=== PATIENT | female | born 1960 | race Caucasian/White ===

== ENCOUNTER 2017-07-10 16:19 | Inpatient (IN) | payer OTHER ==
[~2017-07-10] VITALS: Ht 165.1 cm; Wt 92.2 kg
[~2017-07-10 16:19] MED LIST: ACET325; ACET325 PO; ACET500; ALBU90OI INH; ALBU90OI6 INH; ALBU90OI61 INH; ANTIBIOTIC; ASCO500 PO; ASPI81CH PO; ASPI81EC; ATEN25 PO; ATOR40TA PO; BUME2 PO; Bactrim Ds Tab1 EACH PO; CEFTR1PB IV; CEPH500 PO; CHOL10002 PO; CIPDEXSU BOTHEARS; COLL250TO TOP; CRUTCH3 USE; CYAN500 PO; CYCL10 PO; Cymbalta60 MG PO; DIAZ2 PO; DOCU100 PO; DULO60 PO; FERR325 PO; FLAX PO; FURO40 PO; GABA100; GABA300 PO; GABA600 PO; GEMF600 PO; GLIM2 PO; GLIP5 PO; GLUC500; HYDACE10B PO; HYDACE5; HYDACE5 PO; HYDMOR2 PO; HYDR1TAB94 PO; Hair, Skin & N1 EACH PO; IBUP400; INSDET100 SC; INSUASPI SC; INSUGL100V; INSULANPEN SC; K-TAB ER8 MEQ PO; LAVAP17G PO; LEVO750 PO; LEVSOD100 PO; LEVSOD125 PO; LEVSOD25 PO; LIDO2TG30; LIRA0.6P SC; LOSA25 PO; MELO7.5 PO; METF500 PO; METO25 PO; METPRE4DP PO; NAPR500 PO; NAPR550 PO; Norco 5-325 Ta1 EACH PO; Novolog Fl100 UNIT/1 SC; ONDA4ODT MM; OXYACE5T PO; OXYC5 PO; Omeprazole20 M1 PO; PANT40 PO; POTA8 PO; PRED10 PO; Pedi-Dri 100,0060 GM TOP; RIFA300 PO; RXHYDACE PO; Silvadene20 GM TOP; [UNRECOGNIZED DRUG - OTHER]; [UNRECOGNIZED DRUG - REMARK]
[2017-07-10 17:35] LABS: BASOPHILS ABSOLUTE AUTO 0.02 K/mm3 (0.00-0.23); BASOPHILS PERCENT AUTO 0 % (0-2); EOSINOPHILS ABSOLUTE AUTO 0.02 K/mm3 (0.00-0.68); EOSINOPHILS PERCENT AUTO 0 % (0-6); Hematocrit 35.1 % (33.0-51.0); Hemoglobin 11.5 g/dL (11.5-16.0); IMMATURE GRAN ABSOLUTE AUTO 0.07 K/mm3 (0.00-0.10); IMMATURE GRAN PERCENT AUTO 0 % (0-1); LYMPHOCYTES ABSOLUTE AUTO 0.76 K/mm3 (0.84-5.20); LYMPHOCYTES PERCENT AUTO 4 % (21-46); MONOCYTES ABSOLUTE AUTO 1.05 K/mm3 (0.16-1.47); MONOCYTES PERCENT AUTO 5 % (4-13); Mean Corpuscular HGB 32.1 pg (26.0-34.0); Mean Corpuscular HGB Conc 32.8 g/dL (31.5-36.5); Mean Corpuscular Volume 98 fL (80-100); Mean Platelet Volume 9.4 fL (9.1-12.4); NEUTROPHILS ABSOLUTE AUTO 18.09 K/mm3 (1.96-9.15); NEUTROPHILS PERCENT AUTO 91 % (41-73); Platelet Count 217 K/mm3 (150-400); RDW Coefficient Variation 14.3 % (11.7-14.2); RDW Standard Deviation 51.1 fL (35.1-46.3); Red Blood Cell Count 3.58 M/mm3 (3.80-5.20); White Blood Cell Count 20.01 K/mm3 (4.00-11.30)
[2017-07-10 17:51] LABS: Albumin, Blood 2.7 g/dL (3.4-5.0); Albumin/Globulin Ratio 0.5 (0.8-1.8); Bilirubin, Total 0.4 mg/dL (0.1-1.0); Bun/Creatinine Ratio 12.3 (12.0-20.0); Calcium, Blood 9.2 mg/dL (8.5-10.1); Creatinine, Blood 1.55 mg/dL (0.40-1.00); Globulin, Blood 5.3 g/dL (2.2-4.0); Potassium, Blood 4.6 mmol/L (3.5-5.5)
[2017-07-10 18:57] LABS: Source, Urine Clean Catch
[2017-07-10 19:00] LABS: Bilirubin, Urine Neg (Neg); Blood, Urine 3+ (Neg); Glucose Qualitative, Urine 4+ (Neg); Ketones, Urine Neg (Neg); Leukocyte Esterase, Urine 3+ (Neg); Nitrite, Urine Pos (Neg); Protein, Urine 3+ (Neg); Specific Gravity, Urine 1.015 (1.003-1.022); Urobilinogen, Urine NORM (Normal)
[2017-07-10 19:11] LABS: Appearance, Urine Cloudy (Clear); Color, Urine Yellow (P-Yellow)
[2017-07-10 19:13] LABS: Squamous Epithelial Cells Few /hpf (Few); White Blood Cells, Urine TNTC /hpf (0-5); Yeast/Fungi Urine Few /hpf
[2017-07-10 19:14] LABS: Bacteria Many /hpf
[2017-07-10 19:42] LABS: Influenza A Negative (NEGATIVE); Influenza B Negative (NEGATIVE)
[2017-07-11 05:16] LABS: BASOPHILS ABSOLUTE AUTO 0.02 K/mm3 (0.00-0.23); BASOPHILS PERCENT AUTO 0 % (0-2); EOSINOPHILS ABSOLUTE AUTO 0.02 K/mm3 (0.00-0.68); EOSINOPHILS PERCENT AUTO 0 % (0-6); Hematocrit 27.9 % (33.0-51.0); Hemoglobin 8.9 g/dL (11.5-16.0); IMMATURE GRAN ABSOLUTE AUTO 0.05 K/mm3 (0.00-0.10); IMMATURE GRAN PERCENT AUTO 0 % (0-1); LYMPHOCYTES ABSOLUTE AUTO 1.25 K/mm3 (0.84-5.20); LYMPHOCYTES PERCENT AUTO 7 % (21-46); MONOCYTES ABSOLUTE AUTO 1.15 K/mm3 (0.16-1.47); MONOCYTES PERCENT AUTO 6 % (4-13); Mean Corpuscular HGB 31.8 pg (26.0-34.0); Mean Corpuscular HGB Conc 31.9 g/dL (31.5-36.5); Mean Corpuscular Volume 100 fL (80-100); Mean Platelet Volume 9.5 fL (9.1-12.4); NEUTROPHILS ABSOLUTE AUTO 15.59 K/mm3 (1.96-9.15); NEUTROPHILS PERCENT AUTO 86 % (41-73); Platelet Count 145 K/mm3 (150-400); RDW Coefficient Variation 14.7 % (11.7-14.2); RDW Standard Deviation 52.6 fL (35.1-46.3); White Blood Cell Count 18.08 K/mm3 (4.00-11.30)
[2017-07-11 06:08] LABS: Albumin, Blood 1.9 g/dL (3.4-5.0); Albumin/Globulin Ratio 0.4 (0.8-1.8); Bilirubin, Total 0.3 mg/dL (0.1-1.0); Bun/Creatinine Ratio 12.4 (12.0-20.0); Creatinine, Blood 1.7 mg/dL (0.40-1.00); Globulin, Blood 4.4 g/dL (2.2-4.0); Potassium, Blood 4.9 mmol/L (3.5-5.5); Total Protein, Blood 6.3 g/dL (6.4-8.2)
[2017-07-12 06:37] LABS: Alanine Aminotransfer (ALT/SGP 26 U/L (12-78); Albumin, Blood 1.6 g/dL (3.4-5.0); Albumin/Globulin Ratio 0.4 (0.8-1.8); Alk Phos 184 U/L (50-136); Anion Gap 7 mmol/L (6-16); Aspartate Aminotrans (AST/SGOT 35 U/L (12-37); Bilirubin, Total 0.3 mg/dL (0.1-1.0); Blood Urea Nitrogen 18 mg/dL (8-24); CO2, Blood 22 mmol/L (21-32); Calcium, Blood 7.4 mg/dL (8.5-10.1); Chloride, Blood 106 mmol/L (98-108); Globulin, Blood 4.2 g/dL (2.2-4.0); Glomerular Filtration Rate 38 (60-); Glucose, Blood 154 mg/dL (70-99); Magnesium, Blood 1.5 mg/dL (1.6-2.4); Phosphorus, Blood 2.2 mg/dL (2.5-4.9); Potassium, Blood 4.6 mmol/L (3.5-5.5); Sodium, Blood 135 mmol/L (136-145); Total Protein, Blood 5.8 g/dL (6.4-8.2)
[2017-07-12 06:47] LABS: C-REACTIVE PROTEIN, EXT RANGE >19.000 mg/dL (0.000-0.300)
[2017-07-12 07:06] LABS: BASOPHILS ABSOLUTE AUTO 0.01 K/mm3 (0.00-0.23); BASOPHILS PERCENT AUTO 0 % (0-2); EOSINOPHILS ABSOLUTE AUTO 0.06 K/mm3 (0.00-0.68); EOSINOPHILS PERCENT AUTO 1 % (0-6); Hematocrit 24.5 % (33.0-51.0); Hemoglobin 7.8 g/dL (11.5-16.0); IMMATURE GRAN ABSOLUTE AUTO 0.03 K/mm3 (0.00-0.10); IMMATURE GRAN PERCENT AUTO 0 % (0-1); LYMPHOCYTES ABSOLUTE AUTO 0.84 K/mm3 (0.84-5.20); LYMPHOCYTES PERCENT AUTO 9 % (21-46); MONOCYTES ABSOLUTE AUTO 0.58 K/mm3 (0.16-1.47); MONOCYTES PERCENT AUTO 6 % (4-13); Mean Corpuscular HGB 31.3 pg (26.0-34.0); Mean Corpuscular HGB Conc 31.8 g/dL (31.5-36.5); Mean Corpuscular Volume 98 fL (80-100); Mean Platelet Volume 10.1 fL (9.1-12.4); NEUTROPHILS ABSOLUTE AUTO 8.05 K/mm3 (1.96-9.15); NEUTROPHILS PERCENT AUTO 84 % (41-73); Platelet Count 133 K/mm3 (150-400); RDW Coefficient Variation 14.4 % (11.7-14.2); RDW Standard Deviation 51.4 fL (35.1-46.3); Red Blood Cell Count 2.49 M/mm3 (3.80-5.20); White Blood Cell Count 9.57 K/mm3 (4.00-11.30)
[2017-07-13 04:41] LABS: Bun/Creatinine Ratio 12.7 (12.0-20.0); Calcium, Blood 7.7 mg/dL (8.5-10.1); Creatinine, Blood 1.34 mg/dL (0.40-1.00); Potassium, Blood 4.7 mmol/L (3.5-5.5)
[2017-07-13 04:47] LABS: BASOPHILS ABSOLUTE AUTO 0.01 K/mm3 (0.00-0.23); BASOPHILS PERCENT AUTO 0 % (0-2); EOSINOPHILS ABSOLUTE AUTO 0.13 K/mm3 (0.00-0.68); EOSINOPHILS PERCENT AUTO 2 % (0-6); Hematocrit 25.7 % (33.0-51.0); Hemoglobin 8.3 g/dL (11.5-16.0); IMMATURE GRAN ABSOLUTE AUTO 0.01 K/mm3 (0.00-0.10); IMMATURE GRAN PERCENT AUTO 0 % (0-1); LYMPHOCYTES ABSOLUTE AUTO 0.99 K/mm3 (0.84-5.20); LYMPHOCYTES PERCENT AUTO 14 % (21-46); MONOCYTES ABSOLUTE AUTO 0.44 K/mm3 (0.16-1.47); MONOCYTES PERCENT AUTO 6 % (4-13); Mean Corpuscular HGB Conc 32.3 g/dL (31.5-36.5); Mean Corpuscular Volume 99 fL (80-100); Mean Platelet Volume 10.1 fL (9.1-12.4); NEUTROPHILS ABSOLUTE AUTO 5.61 K/mm3 (1.96-9.15); NEUTROPHILS PERCENT AUTO 78 % (41-73); Platelet Count 116 K/mm3 (150-400); RDW Coefficient Variation 14.3 % (11.7-14.2); RDW Standard Deviation 51.3 fL (35.1-46.3); Red Blood Cell Count 2.59 M/mm3 (3.80-5.20); White Blood Cell Count 7.19 K/mm3 (4.00-11.30)
[2017-07-13 04:47] LABS: Percent Saturation 14.9 % (15.0-50.0)
[2017-07-14 04:37] LABS: BASOPHILS ABSOLUTE AUTO 0.02 K/mm3 (0.00-0.23); BASOPHILS PERCENT AUTO 0 % (0-2); EOSINOPHILS ABSOLUTE AUTO 0.14 K/mm3 (0.00-0.68); EOSINOPHILS PERCENT AUTO 3 % (0-6); Hematocrit 28.4 % (33.0-51.0); Hemoglobin 9.4 g/dL (11.5-16.0); IMMATURE GRAN ABSOLUTE AUTO 0.02 K/mm3 (0.00-0.10); IMMATURE GRAN PERCENT AUTO 0 % (0-1); LYMPHOCYTES ABSOLUTE AUTO 1.43 K/mm3 (0.84-5.20); LYMPHOCYTES PERCENT AUTO 25 % (21-46); MONOCYTES ABSOLUTE AUTO 0.44 K/mm3 (0.16-1.47); MONOCYTES PERCENT AUTO 8 % (4-13); Mean Corpuscular HGB Conc 33.1 g/dL (31.5-36.5); Mean Platelet Volume 10.1 fL (9.1-12.4); NEUTROPHILS ABSOLUTE AUTO 3.61 K/mm3 (1.96-9.15); NEUTROPHILS PERCENT AUTO 64 % (41-73); Platelet Count 154 K/mm3 (150-400); RDW Coefficient Variation 15.3 % (11.7-14.2); RDW Standard Deviation 52.4 fL (35.1-46.3); Red Blood Cell Count 3.03 M/mm3 (3.80-5.20); White Blood Cell Count 5.66 K/mm3 (4.00-11.30)
[2017-07-14 04:47] LABS: Mean Corpuscular Volume 94 fL (80-100)
[2017-07-14 04:53] LABS: Albumin, Blood 1.8 g/dL (3.4-5.0); Anion Gap 7 mmol/L (6-16); Blood Urea Nitrogen 17 mg/dL (8-24); Bun/Creatinine Ratio 12.7 (12.0-20.0); CO2, Blood 25 mmol/L (21-32); Calcium, Blood 8.4 mg/dL (8.5-10.1); Chloride, Blood 106 mmol/L (98-108); Creatinine, Blood 1.34 mg/dL (0.40-1.00); Glomerular Filtration Rate 43 (60-); Glucose, Blood 151 mg/dL (70-99); Potassium, Blood 4.5 mmol/L (3.5-5.5); Sodium, Blood 138 mmol/L (136-145)
[2018-06-27] MEDS ORDERED: ACET325 PO (11:44)
[2018-06-27] MEDS ORDERED: DOCU100 PO (11:44)
[2018-06-27] MEDS ORDERED: Aspir 8181 MG PO (11:44)
[2018-06-27] MEDS ORDERED: LOSA25 PO (11:45)
[2018-06-27] MEDS ORDERED: Lopressor 25 mg25 MG PO (11:45)
[2018-06-27] MEDS ORDERED: Lantus100 UNIT/1 SC (11:45)
[2018-06-27] MEDS ORDERED: Synthroid175 MCG PO (11:46)
[2018-06-27] MEDS ORDERED: ALBU90OI61 INH (11:46)
[2018-06-27] MEDS ORDERED: GABA600 PO (11:46)
[2018-06-27] MEDS ORDERED: Novolog100 UNIT/2 SC (11:47)
== END 2017-07-15 14:44 | disposition left against medical advice (07) | DRG 872 ==
LOC: ER 16:19 → ICUW 07-11 00:05 → PCU 07-12 10:45 → MEDS 07-13 16:29
PROVIDERS: Emergency Medicine; Family Medicine; Hospitalist; Internal Medicine; Physician Assistant
PROC: 30233N1 Transfusion of Nonautologous Red Blood Cells into Peripheral Vein, Percutaneous Approach (ICD-10-PCS; principal; 2017-07-13)
DX: A41.51 Sepsis due to Escherichia coli [E. coli] (principal); N17.9 Acute kidney failure, unspecified; N18.3 Chronic kidney disease, stage 3 (moderate); N12 Tubulo-interstitial nephritis, not specified as acute or chronic; N39.0 Urinary tract infection, site not specified; E11.65 Type 2 diabetes mellitus with hyperglycemia; B96.20 Unspecified Escherichia coli [E. coli] as the cause of diseases classified elsewhere; D63.1 Anemia in chronic kidney disease; D72.829 Elevated white blood cell count, unspecified; I25.10 Atherosclerotic heart disease of native coronary artery without angina pectoris; J40 Bronchitis, not specified as acute or chronic; M47.812 Spondylosis without myelopathy or radiculopathy, cervical region; Z96.0 Presence of urogenital implants; F17.210 Nicotine dependence, cigarettes, uncomplicated; G89.29 Other chronic pain; M54.2 Cervicalgia; Z79.4 Long term (current) use of insulin; Z89.512 Acquired absence of left leg below knee
CPT/HCPCS: 36415; 36430; 51703; 71020; 76770; 80048; 80053; 80069; 81001; 82728; 82947; 83540; 83550; 83605; 83735; 84100; 85025; 86140; 86850; 86870; 86900; 86901; 86902; 86922; 87040; 87077; 87086; 87186; 87804; 93005; 93010; 96361; 96365; 96375; 97110; 97163; 97530; 99285; G8978; G8979; J0696; J0697; J1650; J1815; J1956; J2405; J3010; J7030; P9016; P9612

== ENCOUNTER 2017-07-18 13:26 | Day surgery (SDC) | payer OTHER ==
[2018-06-27] MEDS ORDERED: DOCU100 PO (11:44)
[2018-06-27] MEDS ORDERED: ACET325 PO (11:44)
[2018-06-27] MEDS ORDERED: Aspir 8181 MG PO (11:44)
[2018-06-27] MEDS ORDERED: Lopressor 25 mg25 MG PO (11:45)
[2018-06-27] MEDS ORDERED: Lantus100 UNIT/1 SC (11:45)
[2018-06-27] MEDS ORDERED: LOSA25 PO (11:45)
[2018-06-27] MEDS ORDERED: GABA600 PO (11:46)
[2018-06-27] MEDS ORDERED: ALBU90OI61 INH (11:46)
[2018-06-27] MEDS ORDERED: Synthroid175 MCG PO (11:46)
[2018-06-27] MEDS ORDERED: Novolog100 UNIT/2 SC (11:47)
== END 2017-07-18 15:00 | disposition home or self-care (01) ==
LOC: ATC 13:26
DX: A41.9 Sepsis, unspecified organism (principal); E11.9 Type 2 diabetes mellitus without complications; F17.210 Nicotine dependence, cigarettes, uncomplicated; Z88.1 Allergy status to other antibiotic agents; Z88.0 Allergy status to penicillin; Z88.8 Allergy status to other drugs, medicaments and biological substances
CPT/HCPCS: 96365; J1335; J7050

== ENCOUNTER 2017-07-19 07:37 | Day surgery (SDC) | payer OTHER ==
[2018-06-27] MEDS ORDERED: Aspir 8181 MG PO (11:44)
[2018-06-27] MEDS ORDERED: DOCU100 PO (11:44)
[2018-06-27] MEDS ORDERED: ACET325 PO (11:44)
[2018-06-27] MEDS ORDERED: Lantus100 UNIT/1 SC (11:45)
[2018-06-27] MEDS ORDERED: LOSA25 PO (11:45)
[2018-06-27] MEDS ORDERED: Lopressor 25 mg25 MG PO (11:45)
[2018-06-27] MEDS ORDERED: GABA600 PO (11:46)
[2018-06-27] MEDS ORDERED: Synthroid175 MCG PO (11:46)
[2018-06-27] MEDS ORDERED: ALBU90OI61 INH (11:46)
[2018-06-27] MEDS ORDERED: Novolog100 UNIT/2 SC (11:47)
== END 2017-07-19 14:50 | disposition home or self-care (01) ==
LOC: ATC 07:37
DX: A41.9 Sepsis, unspecified organism (principal); E11.9 Type 2 diabetes mellitus without complications; R05 Cough; I25.10 Atherosclerotic heart disease of native coronary artery without angina pectoris; F17.210 Nicotine dependence, cigarettes, uncomplicated; Z88.1 Allergy status to other antibiotic agents; Z88.0 Allergy status to penicillin; Z88.8 Allergy status to other drugs, medicaments and biological substances
CPT/HCPCS: 96365; J1335; J7050

== ENCOUNTER 2017-07-20 00:42 | Day surgery (SDC) | payer OTHER ==
[2018-06-27] MEDS ORDERED: ACET325 PO (11:44)
[2018-06-27] MEDS ORDERED: Aspir 8181 MG PO (11:44)
[2018-06-27] MEDS ORDERED: DOCU100 PO (11:44)
[2018-06-27] MEDS ORDERED: LOSA25 PO (11:45)
[2018-06-27] MEDS ORDERED: Lantus100 UNIT/1 SC (11:45)
[2018-06-27] MEDS ORDERED: Lopressor 25 mg25 MG PO (11:45)
[2018-06-27] MEDS ORDERED: ALBU90OI61 INH (11:46)
[2018-06-27] MEDS ORDERED: GABA600 PO (11:46)
[2018-06-27] MEDS ORDERED: Synthroid175 MCG PO (11:46)
[2018-06-27] MEDS ORDERED: Novolog100 UNIT/2 SC (11:47)
== END 2017-07-20 14:39 | disposition home or self-care (01) ==
LOC: ATC 00:42
DX: A41.9 Sepsis, unspecified organism (principal); E11.9 Type 2 diabetes mellitus without complications; F17.210 Nicotine dependence, cigarettes, uncomplicated; Z88.1 Allergy status to other antibiotic agents; Z88.0 Allergy status to penicillin; Z88.8 Allergy status to other drugs, medicaments and biological substances
CPT/HCPCS: 96374; J1335

== ENCOUNTER 2017-07-21 00:24 | Day surgery (SDC) | payer OTHER ==
[2018-06-27] MEDS ORDERED: ACET325 PO (11:44)
[2018-06-27] MEDS ORDERED: DOCU100 PO (11:44)
[2018-06-27] MEDS ORDERED: Aspir 8181 MG PO (11:44)
[2018-06-27] MEDS ORDERED: LOSA25 PO (11:45)
[2018-06-27] MEDS ORDERED: Lopressor 25 mg25 MG PO (11:45)
[2018-06-27] MEDS ORDERED: Lantus100 UNIT/1 SC (11:45)
[2018-06-27] MEDS ORDERED: Synthroid175 MCG PO (11:46)
[2018-06-27] MEDS ORDERED: GABA600 PO (11:46)
[2018-06-27] MEDS ORDERED: ALBU90OI61 INH (11:46)
[2018-06-27] MEDS ORDERED: Novolog100 UNIT/2 SC (11:47)
== END 2017-07-21 14:45 | disposition home or self-care (01) ==
LOC: ATC 00:24
DX: A41.9 Sepsis, unspecified organism (principal); R05 Cough; E11.9 Type 2 diabetes mellitus without complications; I25.10 Atherosclerotic heart disease of native coronary artery without angina pectoris
CPT/HCPCS: 96374; J1335

== ENCOUNTER 2017-07-31 23:47 | Emergency (ER) | payer OTHER ==
[~2017-07-31] VITALS: Ht 165.1 cm; Wt 79.8 kg
[2017-08-01 00:21] LABS: BASOPHILS ABSOLUTE AUTO 0.03 K/mm3 (0.00-0.23); BASOPHILS PERCENT AUTO 0 % (0-2); EOSINOPHILS ABSOLUTE AUTO 0.08 K/mm3 (0.00-0.68); EOSINOPHILS PERCENT AUTO 1 % (0-6); Hematocrit 32.5 % (33.0-51.0); Hemoglobin 10.9 g/dL (11.5-16.0); IMMATURE GRAN ABSOLUTE AUTO 0.05 K/mm3 (0.00-0.10); IMMATURE GRAN PERCENT AUTO 0 % (0-1); LYMPHOCYTES ABSOLUTE AUTO 1.74 K/mm3 (0.84-5.20); LYMPHOCYTES PERCENT AUTO 13 % (21-46); MONOCYTES ABSOLUTE AUTO 0.75 K/mm3 (0.16-1.47); MONOCYTES PERCENT AUTO 6 % (4-13); Mean Corpuscular HGB 31.1 pg (26.0-34.0); Mean Corpuscular HGB Conc 33.5 g/dL (31.5-36.5); Mean Corpuscular Volume 93 fL (80-100); NEUTROPHILS ABSOLUTE AUTO 10.29 K/mm3 (1.96-9.15); NEUTROPHILS PERCENT AUTO 80 % (41-73); Platelet Count 269 K/mm3 (150-400); RDW Coefficient Variation 13.9 % (11.7-14.2); RDW Standard Deviation 46.8 fL (35.1-46.3); Red Blood Cell Count 3.51 M/mm3 (3.80-5.20); White Blood Cell Count 12.94 K/mm3 (4.00-11.30)
[2017-08-01 00:39] LABS: Albumin, Blood 2.8 g/dL (3.4-5.0); Albumin/Globulin Ratio 0.5 (0.8-1.8); Bilirubin, Total 0.3 mg/dL (0.1-1.0); Bun/Creatinine Ratio 21.1 (12.0-20.0); Calcium, Blood 9.4 mg/dL (8.5-10.1); Creatinine, Blood 1.52 mg/dL (0.40-1.00); Globulin, Blood 5.3 g/dL (2.2-4.0); Potassium, Blood 4.1 mmol/L (3.5-5.5); Total Protein, Blood 8.1 g/dL (6.4-8.2)
[2017-08-01 02:44] LABS: Source, Urine Clean Catch
[2017-08-01 02:57] LABS: Bilirubin, Urine Neg (Neg); Blood, Urine 3+ (Neg); Glucose Qualitative, Urine 4+ (Neg); Ketones, Urine Neg (Neg); Leukocyte Esterase, Urine 3+ (Neg); Nitrite, Urine Neg (Neg); Protein, Urine 3+ (Neg); Urobilinogen, Urine NORM (Normal)
[2017-08-01 02:58] LABS: Appearance, Urine Cloudy (Clear); Color, Urine Yellow (P-Yellow)
[2017-08-01 03:03] LABS: Bacteria Mod /hpf; Red Blood Cells, Urine 0-2 /hpf (0-2); Squamous Epithelial Cells Few /hpf (Few); White Blood Cells, Urine TNTC /hpf (0-5)
[2018-06-27] MEDS ORDERED: Aspir 8181 MG PO (11:44)
[2018-06-27] MEDS ORDERED: ACET325 PO (11:44)
[2018-06-27] MEDS ORDERED: DOCU100 PO (11:44)
[2018-06-27] MEDS ORDERED: LOSA25 PO (11:45)
[2018-06-27] MEDS ORDERED: Lopressor 25 mg25 MG PO (11:45)
[2018-06-27] MEDS ORDERED: Lantus100 UNIT/1 SC (11:45)
[2018-06-27] MEDS ORDERED: Synthroid175 MCG PO (11:46)
[2018-06-27] MEDS ORDERED: GABA600 PO (11:46)
[2018-06-27] MEDS ORDERED: ALBU90OI61 INH (11:46)
[2018-06-27] MEDS ORDERED: Novolog100 UNIT/2 SC (11:47)
== END 2017-08-01 04:27 | disposition home or self-care (01) ==
LOC: ER 23:47
PROVIDERS: Emergency Medicine
DX: R10.84 Generalized abdominal pain (principal); Z88.0 Allergy status to penicillin; Z88.8 Allergy status to other drugs, medicaments and biological substances; Z88.1 Allergy status to other antibiotic agents; Z79.899 Other long term (current) drug therapy; Z79.4 Long term (current) use of insulin; Z79.82 Long term (current) use of aspirin; I10 Essential (primary) hypertension; E11.9 Type 2 diabetes mellitus without complications; F17.200 Nicotine dependence, unspecified, uncomplicated
CPT/HCPCS: 80053; 81001; 83690; 85025; 87077; 87086; 87186; 96361; 96374; 99284; J2405; J7030; P9612

== ENCOUNTER → 2017-09-27 | Outpatient (CLI) | payer OTHER ==
[~2017-09-27] MED LIST changes: +Aspir 8181 MG PO; +Lantus100 UNIT/1 SC; +Lopressor 25 mg25 MG PO; +Novolog100 UNIT/2 SC; +Synthroid175 MCG PO
== END ==
LOC: LAB EV 17:52
DX: N39.0 Urinary tract infection, site not specified (principal)
CPT/HCPCS: 87086; 87147

== ENCOUNTER → 2017-10-02 | Outpatient (CLI) | payer OTHER | END | disposition home or self-care (01) | LOC: LAB 12:51 | PROVIDERS: Internal Medicine Hematology & Oncology | DX: D64.9 Anemia, unspecified (principal) | CPT/HCPCS: 82728; 83540; 83550 ==

== ENCOUNTER 2018-07-04 09:51 | Day surgery (SDC) | payer OTHER ==
[~2018-07-04] VITALS: Ht 165.1 cm; Wt 84.8 kg
== END 2018-07-04 12:38 | disposition home or self-care (01) ==
LOC: ORSCSDS 09:51
PROVIDERS: Internal Medicine Gastroenterology
PROC: 0DBP8ZX Excision of Rectum, Via Natural or Artificial Opening Endoscopic, Diagnostic (ICD-10-PCS; principal; 2018-07-04 11:15)
PROC: 0DBM8ZX Excision of Descending Colon, Via Natural or Artificial Opening Endoscopic, Diagnostic (ICD-10-PCS; principal; 2018-07-04 11:15)
DX: Z12.11 Encounter for screening for malignant neoplasm of colon (principal); D12.4 Benign neoplasm of descending colon; K62.1 Rectal polyp; Z85.038 Personal history of other malignant neoplasm of large intestine; Z86.010 Personal history of colon polyps; K64.8 Other hemorrhoids; I25.10 Atherosclerotic heart disease of native coronary artery without angina pectoris; I10 Essential (primary) hypertension; K57.30 Diverticulosis of large intestine without perforation or abscess without bleeding; E78.5 Hyperlipidemia, unspecified; E11.9 Type 2 diabetes mellitus without complications; F17.210 Nicotine dependence, cigarettes, uncomplicated; Z79.82 Long term (current) use of aspirin; Z79.84 Long term (current) use of oral hypoglycemic drugs; Z79.899 Other long term (current) drug therapy
CPT/HCPCS: 82947; 88305; J7120

== ENCOUNTER 2018-11-19 11:43 | Day surgery (SDC) | payer OTHER ==
--- NOTE | 2018-11-19 14:08 | NUR ---
Patient authorized nursing service director to observe care.
== END 2018-11-19 22:56 | disposition home or self-care (01) ==
LOC: WOUND 11:43
DX: E11.621 Type 2 diabetes mellitus with foot ulcer (principal); L97.512 Non-pressure chronic ulcer of other part of right foot with fat layer exposed; E11.52 Type 2 diabetes mellitus with diabetic peripheral angiopathy with gangrene; I70.261 Atherosclerosis of native arteries of extremities with gangrene, right leg; I70.248 Atherosclerosis of native arteries of left leg with ulceration of other part of lower leg; I12.9 Hypertensive chronic kidney disease with stage 1 through stage 4 chronic kidney disease, or unspecified chronic kidney disease; E11.22 Type 2 diabetes mellitus with diabetic chronic kidney disease; N18.9 Chronic kidney disease, unspecified; E11.69 Type 2 diabetes mellitus with other specified complication; M86.9 Osteomyelitis, unspecified; I25.10 Atherosclerotic heart disease of native coronary artery without angina pectoris; F41.9 Anxiety disorder, unspecified; F17.210 Nicotine dependence, cigarettes, uncomplicated; Z89.512 Acquired absence of left leg below knee; Z88.8 Allergy status to other drugs, medicaments and biological substances; Z88.0 Allergy status to penicillin; Z88.1 Allergy status to other antibiotic agents
CPT/HCPCS: 73630; 87070; 87075; 87077; 87147; 87186; 87205; G0463

== ENCOUNTER 2018-11-25 00:52 | Day surgery (SDC) | payer OTHER ==
[2018-11-28] MEDS ORDERED: Cymbalta60 MG PO (15:31)
[2018-11-28] MEDS ORDERED: BASAGLAR K100 UNIT/1 SC (15:32)
[2018-11-28] MEDS ORDERED: TRAZ50 PO (15:32)
[2018-11-28] MEDS ORDERED: CYCL10 PO (15:33)
[2018-11-28] MEDS ORDERED: BYDUREON P2 MG/0.65 SC (15:33)
[2018-11-28] MEDS ORDERED: OMEPRAZOLE20 MG PO (15:33)
[2018-11-28] MEDS ORDERED: CEPH500 PO (15:34)
[2018-11-28] MEDS ORDERED: ALBU90OI INH (15:35)
== END 2018-11-25 22:39 | disposition home or self-care (01) ==
LOC: WOUND 00:52
DX: E11.621 Type 2 diabetes mellitus with foot ulcer (principal); E11.622 Type 2 diabetes mellitus with other skin ulcer; L97.511 Non-pressure chronic ulcer of other part of right foot limited to breakdown of skin; L97.319 Non-pressure chronic ulcer of right ankle with unspecified severity; E11.52 Type 2 diabetes mellitus with diabetic peripheral angiopathy with gangrene; I70.248 Atherosclerosis of native arteries of left leg with ulceration of other part of lower leg; I70.269 Atherosclerosis of native arteries of extremities with gangrene, unspecified extremity; I13.2 Hypertensive heart and chronic kidney disease with heart failure and with stage 5 chronic kidney disease, or end stage renal disease; E11.22 Type 2 diabetes mellitus with diabetic chronic kidney disease; I50.9 Heart failure, unspecified; N18.6 End stage renal disease; I25.10 Atherosclerotic heart disease of native coronary artery without angina pectoris; F41.9 Anxiety disorder, unspecified; F17.200 Nicotine dependence, unspecified, uncomplicated

== ENCOUNTER 2018-11-29 06:44 | Inpatient (IN) | payer OTHER ==
[~2018-11-29] VITALS: Ht 165.1 cm; Wt 93.2 kg
[~2018-11-29 06:44] MED LIST changes: +BASAGLAR K100 UNIT/1 SC; +BYDUREON P2 MG/0.65 SC; +OMEPRAZOLE20 MG PO; +TRAZ50 PO
[2018-11-29 17:36] LABS: Glucose, Blood 541 mg/dL (70-99)
--- NOTE | 2018-11-29 18:03 | NUR ---
pt arrived to pcu 9 via bed from heart paw paw, report from Zbigniew RN, per report he has recovered the pt. pt states she is doing ok, vs stable. she is a/ox3, cooperative with care, follows commands well, lungs are clear in upper decker, dim in bases, resp even and unlabored, no cough noted, she is currently on r/a, hrr, tele in place running sr per monitor, see strip, no edema noted, she has a left bka, ppp +1 to right, cap refill <3sec, iv site is clear and patent, bt x4, abd round soft, nontender, skin has two cath sites, to right and left groin sites are soft clear no drainage, skin otherwise clear, states she's not hungry for dinner, but blood glucose came back hi, sent order for lab draw to get acurate number. call light in reach.
--- NOTE | 2018-11-29 18:21 | NUR ---
called Dr. Lorenzana for orders for blood sugar over 500, he said he ordered a hospitalist consult, to manage blood sugars, this was in nurse notify, and was not seen, so this was called into Dr. Archer, and ordered heperin gtt orders for pharmacy to dose. call light in reach.
[2018-11-30 05:03] LABS: BASOPHILS ABSOLUTE AUTO 0.05 K/mm3 (0.00-0.23); BASOPHILS PERCENT AUTO 0 % (0-2); EOSINOPHILS ABSOLUTE AUTO 0.05 K/mm3 (0.00-0.68); EOSINOPHILS PERCENT AUTO 0 % (0-6); Hematocrit 25.1 % (33.0-51.0); Hemoglobin 8.1 g/dL (11.5-16.0); IMMATURE GRAN ABSOLUTE AUTO 0.05 K/mm3 (0.00-0.10); IMMATURE GRAN PERCENT AUTO 0 % (0-1); LYMPHOCYTES ABSOLUTE AUTO 3.09 K/mm3 (0.84-5.20); LYMPHOCYTES PERCENT AUTO 24 % (21-46); MONOCYTES ABSOLUTE AUTO 0.66 K/mm3 (0.16-1.47); MONOCYTES PERCENT AUTO 5 % (4-13); Mean Corpuscular HGB 30.2 pg (26.0-34.0); Mean Corpuscular HGB Conc 32.3 g/dL (31.5-36.5); Mean Corpuscular Volume 94 fL (80-100); Mean Platelet Volume 10.2 fL (9.1-12.4); NEUTROPHILS ABSOLUTE AUTO 8.99 K/mm3 (1.96-9.15); NEUTROPHILS PERCENT AUTO 70 % (41-73); NRBC ABSOLUTE 0.02 K/mm3 (0.00-0.02); NRBC Auto 0.2 /100 WBC (0.0-0.2); Platelet Count 358 K/mm3 (150-400); RDW Coefficient Variation 15.2 % (11.7-14.2); RDW Standard Deviation 50.2 fL (35.1-46.3); Red Blood Cell Count 2.68 M/mm3 (3.80-5.20); White Blood Cell Count 12.89 K/mm3 (4.00-11.30)
[2018-11-30 05:36] LABS: Albumin, Blood 2.5 g/dL (3.4-5.0); Albumin/Globulin Ratio 0.6 (0.8-1.8); Bilirubin, Total 0.2 mg/dL (0.1-1.0); Bun/Creatinine Ratio 12.2 (12.0-20.0); Calcium, Blood 8.2 mg/dL (8.5-10.1); Creatinine, Blood 2.13 mg/dL (0.40-1.00); Free Thyroxine 0.95 ng/dL (0.70-1.60); Globulin, Blood 4.1 g/dL (2.2-4.0); Potassium, Blood 4.2 mmol/L (3.5-5.5); Total Protein, Blood 6.6 g/dL (6.4-8.2); Triiodothyronine, Free 1.5 pg/mL (2.18-3.98)
--- NOTE | 2018-11-30 07:15 | NUR ---
AM ASSESSMENT: Pt lying in bed with non-adherant dressing to 2nd and 3rd toes. Toes are black and very foul oder. R ankle with mepalex dressing intact, wound with scant drainage, redness around wound. Photos in chart. Pt states that she is having 9/10 pain in her R foot. Will medicate per orders. R abd site and L groin access sites with no bleeding, selling, hematoma or tenderness noted. Dressings intact with no drainage. Pt BP is slightly hypotensive. LS clear. HR ST at 104. BT positive. Pulses faint but palp. Pt denies other needs at this time. Will treat per orders.
--- NOTE | 2018-11-30 08:03 | NUR ---
END OF SHIFT SUMMARY ASSUMED CARE OF PT @1900. PT ALERT BUT SOMEWHAT DROWSY AT BEGINNING 0F SHIFT. PT AT END OF SHIFT APPEARS MUCH MORE ALERT AND OREINTED. PT PLACED ON HEPARIN INFUSION AT SHIFT START. TITRATED ONCE AT FOLLOWING SHIFT CHANGE TO 20.1 MLS/HR WITH ONCOMING NURSE AT BEDSIDE. PT HAS MEPILEX COVERING R ANKLE WOUND, FOUL ODOR. PT HAD DRESSING FROM HOME COVERING R FOOT. THIS WAS REMOVED, VERY PAINFUL FOR PT. 2ND AND 3RD TOES PRESENT BLACK, VERY FOUL ODOR. FOOT RE DRESSED. BOTH WOUNDS VERY PAINFUL TO TROUCH FOR PATIENT. UPON TOUCH, PT YELLS OUT. PT HAS APPEARED TO HAVE SLEPT T/O SHIFT. VSS T/O SHIFT. CALL LIGHT WITHIN REACH UPON LEAVING ROOM. BED IN LOWEST POSITION.
--- NOTE | 2018-11-30 19:44 | NUR ---
Shift summary: Pt dozing on and off in room. When awake Pt will sometimes cry out "oh my foot! Owee, Owee!". Pt was medicated per orders throughout the shift. She would be crying out but then doze off right after. No changes in wound sites today. BP improved throughout the shift. No other changes. Report given to night RN.
[2018-12-01 05:14] LABS: BASOPHILS ABSOLUTE AUTO 0.03 K/mm3 (0.00-0.23); BASOPHILS PERCENT AUTO 0 % (0-2); EOSINOPHILS ABSOLUTE AUTO 0.33 K/mm3 (0.00-0.68); EOSINOPHILS PERCENT AUTO 4 % (0-6); Hematocrit 20.8 % (33.0-51.0); Hemoglobin 6.7 g/dL (11.5-16.0); IMMATURE GRAN ABSOLUTE AUTO 0.03 K/mm3 (0.00-0.10); IMMATURE GRAN PERCENT AUTO 0 % (0-1); LYMPHOCYTES ABSOLUTE AUTO 1.94 K/mm3 (0.84-5.20); LYMPHOCYTES PERCENT AUTO 21 % (21-46); MONOCYTES ABSOLUTE AUTO 0.45 K/mm3 (0.16-1.47); MONOCYTES PERCENT AUTO 5 % (4-13); Mean Corpuscular HGB Conc 32.2 g/dL (31.5-36.5); Mean Corpuscular Volume 96 fL (80-100); Mean Platelet Volume 9.5 fL (9.1-12.4); NEUTROPHILS ABSOLUTE AUTO 6.57 K/mm3 (1.96-9.15); NEUTROPHILS PERCENT AUTO 70 % (41-73); NRBC ABSOLUTE 0.02 K/mm3 (0.00-0.02); NRBC Auto 0.2 /100 WBC (0.0-0.2); Platelet Count 261 K/mm3 (150-400); RDW Coefficient Variation 16.1 % (11.7-14.2); RDW Standard Deviation 54.3 fL (35.1-46.3); Red Blood Cell Count 2.16 M/mm3 (3.80-5.20); White Blood Cell Count 9.35 K/mm3 (4.00-11.30)
[2018-12-01 05:37] LABS: Albumin, Blood 2.4 g/dL (3.4-5.0); Anion Gap 8 mmol/L (6-16); Blood Urea Nitrogen 25 mg/dL (8-24); Bun/Creatinine Ratio 10.4 (12.0-20.0); CO2, Blood 22 mmol/L (21-32); Calcium, Blood 7.6 mg/dL (8.5-10.1); Chloride, Blood 108 mmol/L (98-108); Glomerular Filtration Rate 22 (60-); Glucose, Blood 147 mg/dL (70-99); Potassium, Blood 3.9 mmol/L (3.5-5.5); Sodium, Blood 138 mmol/L (136-145)
[2018-12-01 07:05] LABS: IMMATURE RETIC FRACTION 28.1 % (2.3-16.0); RETIC HGB EQUIVALENT 37.4 pg (28.20-36.60)
[2018-12-01 07:19] LABS: Percent Saturation 14.5 % (15.0-50.0)
--- NOTE | 2018-12-01 07:38 | NUR ---
END OF SHIFT SUMMARY ASSUMED CARE OF PT @1900. PT ALERT AND ORIENTED, SLOWED RESPONSES BUT APPROPRIATE. PT ACCESS SITES IN L GROIN AND R LOWER GROIN/ABD NONTENDER, SOFT TO PALPATION. SHOW NO NEW BLEEDING. PT HAS BEEN COMPLAINING OF PAININ R LEG R/T WOUNDS ON FOOT/ANKLE. MEDICATED PER EMAR. VSS T/O SHIFT. BP STABLE. PT SHOWS NO NEW BRUISING ON BACKSIDE. PT HAS CONTINUED TO HAVE HEPARIN INFUSION T/O SHIFT. ADJUSTED PER PHARMACY. LUNGS HAVE BEEN CLEAR/DIM. PT HAS HAD DEPENZ CHANGE R/T INCONTINENCE. WITH 0400 LABS, HGB SHOWS 6.7 WHICH IS A LARGE DROP FROM YESTERDAYS HGB. DR. ROBERSON CALLED REGARDING LAB, UPDATED ON PT. DR ROBERSON CAME TO ROOM TO ASSESS PT. PLACES ORDER FOR 2 PRBC'S AND STAT ABD CT. PT ARRIVES BACK TO ROOM AT SHIFT CHANGE. DR CHUN IN ROOM TO ASSESS PT AND DETERMINE COURSE OF ACTION. REPORT GIVEN TO ONCOMING NURSE.
--- NOTE | 2018-12-01 08:16 | NUR ---
NURSING PCU DAYSHIFT: Assumed care of pt at approx 0700. A/O this a.m., pleasant, cooperative w/care. Repositions fairly independently. Skin is dry/fragile, mild bruising noted to UE's, wounds present to R foot (photos in chart), chronic L BKA. Tele in place, SR/ST, BP stable, no noted edema, no c/o CP/pressure. L/S w/scattered wheezes t/o, dim bases, denies dyspnea, O2 sat stable on RA, occ moist/DESKTOP SUPPORT ENGINEER cough. Abd SNT, BT+, incontinent of urine per rpt. PIV x2, NS infusing at 100cc/hr, hep gtt initially increased to 21 u/kg/hr (28.1 mls/hr) as per pharmacy dosing. Pt to imaging for abd/pelvis CT d/t noted Hgb decrease. Imaging completed, results reviewed. Plan of care discussed w/PMD, new d/o received. Cardiology interventionalist notified, hept gtt, plavix, and asa to be held at this time. Pt to receive two units of PRBC's per d/o. Denies any current questions/needs, call light in reach, cont to monitor for any changes.
[2018-12-01 17:24] LABS: Hematocrit 24.7 % (33.0-51.0); Hemoglobin 7.8 g/dL (11.5-16.0)
--- NOTE | 2018-12-01 17:54 | NUR ---
NURSING PCU DAYSHIFT SUMMARY: No significant changes noted t/o the shift. Pt received one unit PRBC's, f/u Hbg drawn, results reviewed, second unit to be hung at this time. Pt has remained pleasant and cooperative w/care. Cries out intermittently d/t pain in R foot, treatment w/meds as ordered. Bed bath and linen change completed, tolerated well. Pt denies any current questions/needs. Call light in reach, cont to monitor until rpt is given to NOC RN.
--- NOTE | 2018-12-01 18:00 | NUR ---
UPDATE: 2nd unit PRBC started per orders. LS with slight wheezing in upper lobes. VSS. Pt verbalized understanding of possible blood reactions. Denies questions or concerns. Will monitor.
[2018-12-01 22:30] LABS: Hematocrit 24.9 % (33.0-51.0); Hemoglobin 8.2 g/dL (11.5-16.0)
[2018-12-02 04:55] LABS: BASOPHILS ABSOLUTE AUTO 0.02 K/mm3 (0.00-0.23); BASOPHILS PERCENT AUTO 0 % (0-2); EOSINOPHILS ABSOLUTE AUTO 0.37 K/mm3 (0.00-0.68); EOSINOPHILS PERCENT AUTO 5 % (0-6); Hematocrit 25.8 % (33.0-51.0); Hemoglobin 8.3 g/dL (11.5-16.0); IMMATURE GRAN ABSOLUTE AUTO 0.09 K/mm3 (0.00-0.10); IMMATURE GRAN PERCENT AUTO 1 % (0-1); LYMPHOCYTES ABSOLUTE AUTO 1.78 K/mm3 (0.84-5.20); LYMPHOCYTES PERCENT AUTO 23 % (21-46); MONOCYTES PERCENT AUTO 5 % (4-13); Mean Corpuscular HGB 30.1 pg (26.0-34.0); Mean Corpuscular HGB Conc 32.2 g/dL (31.5-36.5); Mean Corpuscular Volume 94 fL (80-100); Mean Platelet Volume 9.5 fL (9.1-12.4); NEUTROPHILS PERCENT AUTO 65 % (41-73); NRBC ABSOLUTE 0.05 K/mm3 (0.00-0.02); NRBC Auto 0.7 /100 WBC (0.0-0.2); Platelet Count 242 K/mm3 (150-400); RDW Coefficient Variation 17.7 % (11.7-14.2); RDW Standard Deviation 58.2 fL (35.1-46.3); Red Blood Cell Count 2.76 M/mm3 (3.80-5.20); White Blood Cell Count 7.66 K/mm3 (4.00-11.30)
[2018-12-02 04:56] LABS: Hematocrit 26.7 % (33.0-51.0); Hemoglobin 8.5 g/dL (11.5-16.0)
[2018-12-02 05:35] LABS: Albumin, Blood 2.3 g/dL (3.4-5.0); Anion Gap 7 mmol/L (6-16); Blood Urea Nitrogen 22 mg/dL (8-24); Bun/Creatinine Ratio 11.3 (12.0-20.0); CO2, Blood 22 mmol/L (21-32); Calcium, Blood 7.8 mg/dL (8.5-10.1); Chloride, Blood 113 mmol/L (98-108); Creatinine, Blood 1.94 mg/dL (0.40-1.00); Glomerular Filtration Rate 28 (60-); Glucose, Blood 87 mg/dL (70-99); Phosphorus, Blood 3.4 mg/dL (2.5-4.9); Sodium, Blood 142 mmol/L (136-145)
--- NOTE | 2018-12-02 07:44 | NUR ---
END OF SHIFT SUMMARY ASSUMED CARE OF PT @1900. PT FINISHING UP LAST UNIT OF 2 PRBCS. TRANSFUSION VITALS COMPLETED. PT'S VSS. HAVE BEEN STABLE T/O SHIFT. PT'S GROIN SITES STABLE, NO SIGNS OF NEW BLEEDING. PRBC INFUSION COMPLETED, HAS HAD NS INFUSING @100 MLS/HR. H&H DRAWN 1 HOUR POST END OF INFUSION. HGB INCREASED TO 7.8. UPON AM LABS, HGB 8.5. 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 PT'S PAIN IN R FOOR R/T WOUNDS ON TOES/ANKLE HAVE BEEN AN ISSUE THIS SHIFT FOR PT. GABAPENTIN, FLEXERIL, NORCO HAVE NOT BEEN SUCCESFUL AT HELPING WITH PT'S PAIN. FEET HAVE BEEN RAISED UP IN BED FOR MAJORITY OF SHIFT. IV FENTANYL 25-50MCG ORDERED PER DR COX THIS SHIFT, PT TOLERATES 50MCG WELL, STATES HAS HELPED TO DECREASE PAIN FROM 10/10 TO 7/10. PT HAS BEEN INCONTINENT THIS SHIFT AND ATTENDS CHANGED. REPORT GIVEN TO ONCOMING NURSE.
[2018-12-02 09:13] LABS: Hematocrit 26.2 % (33.0-51.0); Hemoglobin 8.3 g/dL (11.5-16.0)
--- NOTE | 2018-12-02 13:15 | NUR ---
RIGHT FOOT DRESSING R FOOT DRESSED WITH NEW TELFA PAD AND TAPE-CDI.
[2018-12-02 15:27] LABS: Hematocrit 26.5 % (33.0-51.0); Hemoglobin 8.5 g/dL (11.5-16.0)
--- NOTE | 2018-12-02 16:52 | NUR ---
ELIO NOTE/SHIFT SUMMARY RECEIVED REPORT FROM ABE MONK IN PCU. PT TO ROOM, TRANSFERED TO BED WITH 3 PERSON ASSIST WITH SLIDER SHEET. PT ORIENTED TO ROOM AND CALL LIGHT. PT A&Ox2. CALM AND COOPERTIVE WITH CARE. PT RESITNG IN BED. RLE ELEVATED. PT REPORTS PAIN T/O SHIFT, MEDICATED PER EMAR. PT DENIES N/V AND SOB. PT RECEIVING PO ANTIBIOTICS. RLE IS PINK IN COLOR, AND COOL TO TOUCH. BP ELEVATED THIS AFTERNOON, VSS. NO OTHER ACUTE CHANGES NOTED DURING SHIFT. WILL CONTINUE TO MONITOR UNTIL REPORT GIVEN TO ONCOMING RN
[2018-12-02 21:27] LABS: Hematocrit 27.8 % (33.0-51.0); Hemoglobin 8.7 g/dL (11.5-16.0)
[2018-12-03 03:24] LABS: Hematocrit 27.7 % (33.0-51.0); Hemoglobin 8.7 g/dL (11.5-16.0)
[2018-12-03 03:25] LABS: BASOPHILS ABSOLUTE AUTO 0.03 K/mm3 (0.00-0.23); BASOPHILS PERCENT AUTO 0 % (0-2); EOSINOPHILS ABSOLUTE AUTO 0.53 K/mm3 (0.00-0.68); EOSINOPHILS PERCENT AUTO 6 % (0-6); Hematocrit 27.7 % (33.0-51.0); Hemoglobin 8.6 g/dL (11.5-16.0); IMMATURE GRAN ABSOLUTE AUTO 0.07 K/mm3 (0.00-0.10); IMMATURE GRAN PERCENT AUTO 1 % (0-1); LYMPHOCYTES ABSOLUTE AUTO 2.07 K/mm3 (0.84-5.20); LYMPHOCYTES PERCENT AUTO 24 % (21-46); MONOCYTES ABSOLUTE AUTO 0.49 K/mm3 (0.16-1.47); MONOCYTES PERCENT AUTO 6 % (4-13); Mean Corpuscular HGB 29.7 pg (26.0-34.0); Mean Corpuscular Volume 96 fL (80-100); Mean Platelet Volume 9.6 fL (9.1-12.4); NEUTROPHILS ABSOLUTE AUTO 5.32 K/mm3 (1.96-9.15); NEUTROPHILS PERCENT AUTO 63 % (41-73); NRBC ABSOLUTE 0.03 K/mm3 (0.00-0.02); NRBC Auto 0.4 /100 WBC (0.0-0.2); Platelet Count 271 K/mm3 (150-400); RDW Coefficient Variation 17.5 % (11.7-14.2); RDW Standard Deviation 58.8 fL (35.1-46.3); White Blood Cell Count 8.51 K/mm3 (4.00-11.30)
[2018-12-03 03:37] LABS: Albumin, Blood 2.4 g/dL (3.4-5.0); Anion Gap 6 mmol/L (6-16); Blood Urea Nitrogen 20 mg/dL (8-24); Bun/Creatinine Ratio 11.4 (12.0-20.0); CO2, Blood 24 mmol/L (21-32); Calcium, Blood 7.9 mg/dL (8.5-10.1); Chloride, Blood 113 mmol/L (98-108); Creatinine, Blood 1.75 mg/dL (0.40-1.00); Glomerular Filtration Rate 31 (60-); Glucose, Blood 98 mg/dL (70-99); Phosphorus, Blood 3.3 mg/dL (2.5-4.9); Potassium, Blood 4.1 mmol/L (3.5-5.5); Sodium, Blood 143 mmol/L (136-145)
--- NOTE | 2018-12-03 06:19 | NUR ---
SHIFT SUMMARY PT SLEEPING DURING SHIFT REPORT AND MOST OF REMAINING NIGHT. PT WAKES EASILY FOR CARE AND IMMEDIATELY STARTS WHINING IF AWAKENED. PT WILL STOP WHINING IF YOU TALK TO HER AND ASK HER QUESTIONS, BUT WILL RETURN TO WHINING WHEN CONVERSATION ENDS. PT MEDICATED FOR C/O PAIN TO R FOOT PER EMAR. PT HAS BEEN INCONTINENT OF BLADDER THRU OUT SHIFT. IN CONTACT ISO FOR ESBL IN URINE. PER REPORT, PT IS W/C BOUND AT BASELINE D/T R FOOT REVASCULARIZATION AND LBKA W/O PROSTHETIC LEG. POSSIBLE FURTHER REVASCULARIZATION OUT PT. CALL LT IN REACH.
[2018-12-03] MEDS ORDERED: GABA300 PO (16:10)
[2018-12-03] MEDS ORDERED: Humalog100 UNIT/3 SC (16:12)
[2018-12-03] MEDS ORDERED: CLOP75 PO (16:13)
[2018-12-03] MEDS ORDERED: ATOR40TA PO (16:13)
--- NOTE | 2018-12-03 16:59 | NUR ---
PATIENT DISCHARGE THE PATIENT WAS DISCHARGED HOME VIA TAXI, AFTER DISCHARGE INSTRUCTIONS WERE GIVEN TO THE PATIENT. THE PATIENT WAS INSTRUCTED TO FOLLOW UP WITH HER DOCTORS AND TO SPECIAL EDUCATION EDUCATIONAL ASSISTANT HER PRESCIPTIONS WERE ARRANGED. THE PATIENT LEFT THE HOSPITAL WITHOUT CONCERN OR COMPLAINT.
== END 2018-12-03 16:34 | disposition home or self-care (01) | DRG 253 ==
LOC: MHTC 06:44 → PCU 10:53 → ICUW 10:53 → PCU 15:43 → MEDS 12-02 16:17 → ENPENDDIS 12-03 15:44 → MEDS 12-03 16:34
PROVIDERS: Internal Medicine; ADMIT Radiology Diagnostic Radiology
PROC: 047K3Z1 Dilation of Right Femoral Artery using Drug-Coated Balloon, Percutaneous Approach (ICD-10-PCS; 2018-11-29)
PROC: 047T3ZZ Dilation of Right Peroneal Artery, Percutaneous Approach (ICD-10-PCS; 2018-11-29)
PROC: B3101ZZ Fluoroscopy of Thoracic Aorta using Low Osmolar Contrast (ICD-10-PCS; 2018-11-29)
PROC: B41G1ZZ Fluoroscopy of Left Lower Extremity Arteries using Low Osmolar Contrast (ICD-10-PCS; 2018-11-29)
PROC: B41F1ZZ Fluoroscopy of Right Lower Extremity Arteries using Low Osmolar Contrast (ICD-10-PCS; 2018-11-29)
PROC: 30233N1 Transfusion of Nonautologous Red Blood Cells into Peripheral Vein, Percutaneous Approach (ICD-10-PCS; principal; 2018-12-01)
DX: E11.52 Type 2 diabetes mellitus with diabetic peripheral angiopathy with gangrene (principal); N17.9 Acute kidney failure, unspecified; N18.4 Chronic kidney disease, stage 4 (severe); D62 Acute posthemorrhagic anemia; E11.22 Type 2 diabetes mellitus with diabetic chronic kidney disease; E11.42 Type 2 diabetes mellitus with diabetic polyneuropathy; F17.210 Nicotine dependence, cigarettes, uncomplicated; E78.5 Hyperlipidemia, unspecified; E89.0 Postprocedural hypothyroidism; K21.9 Gastro-esophageal reflux disease without esophagitis; M19.90 Unspecified osteoarthritis, unspecified site; Z89.512 Acquired absence of left leg below knee; Z89.432 Acquired absence of left foot; Z95.1 Presence of aortocoronary bypass graft; I12.9 Hypertensive chronic kidney disease with stage 1 through stage 4 chronic kidney disease, or unspecified chronic kidney disease; E11.51 Type 2 diabetes mellitus with diabetic peripheral angiopathy without gangrene; Z79.4 Long term (current) use of insulin; Z79.82 Long term (current) use of aspirin; I25.10 Atherosclerotic heart disease of native coronary artery without angina pectoris
CPT/HCPCS: 36200; 36415; 36430; 37224; 37228; 37232; 74176; 75625; 75710; 75716; 75774; 80053; 80069; 82728; 82947; 83540; 83550; 84439; 84481; 85014; 85018; 85025; 85045; 85347; 85730; 86850; 86870; 86900; 86901; 86902; 86922; 96361; 96374; 96375; 96376; 99152; 99153; A9270-GY; C1725; C1760; C1769; C1887; C1894; C2623; G0378; J1644; J2250; J2720; J3010; J7030; J7040; J7050; P9016; Q9967

== ENCOUNTER 2018-12-17 11:50 | Day surgery (SDC) | payer OTHER ==
[~2018-12-17 11:50] MED LIST changes: +CLOP75 PO; +LEVSOD112 PO; +NOVOLOG FL100 UNIT/1 SC; -Synthroid175 MCG PO
== END 2018-12-17 22:54 | disposition home or self-care (01) ==
LOC: WOUND 11:50
DX: E11.621 Type 2 diabetes mellitus with foot ulcer (principal); L97.512 Non-pressure chronic ulcer of other part of right foot with fat layer exposed; E11.622 Type 2 diabetes mellitus with other skin ulcer; E11.51 Type 2 diabetes mellitus with diabetic peripheral angiopathy without gangrene; I70.248 Atherosclerosis of native arteries of left leg with ulceration of other part of lower leg; L97.319 Non-pressure chronic ulcer of right ankle with unspecified severity; L97.518 Non-pressure chronic ulcer of other part of right foot with other specified severity; I70.269 Atherosclerosis of native arteries of extremities with gangrene, unspecified extremity; I12.9 Hypertensive chronic kidney disease with stage 1 through stage 4 chronic kidney disease, or unspecified chronic kidney disease; E11.22 Type 2 diabetes mellitus with diabetic chronic kidney disease; N18.9 Chronic kidney disease, unspecified; E11.52 Type 2 diabetes mellitus with diabetic peripheral angiopathy with gangrene; I25.10 Atherosclerotic heart disease of native coronary artery without angina pectoris; F17.200 Nicotine dependence, unspecified, uncomplicated
CPT/HCPCS: G0463

== ENCOUNTER 2018-12-24 12:12 | Day surgery (SDC) | payer OTHER | END 2018-12-24 23:12 | disposition home or self-care (01) | LOC: WOUND 12:12 | DX: E11.621 Type 2 diabetes mellitus with foot ulcer (principal); E11.622 Type 2 diabetes mellitus with other skin ulcer; L97.518 Non-pressure chronic ulcer of other part of right foot with other specified severity; L97.319 Non-pressure chronic ulcer of right ankle with unspecified severity; E11.52 Type 2 diabetes mellitus with diabetic peripheral angiopathy with gangrene; I70.248 Atherosclerosis of native arteries of left leg with ulceration of other part of lower leg; I70.269 Atherosclerosis of native arteries of extremities with gangrene, unspecified extremity; E11.40 Type 2 diabetes mellitus with diabetic neuropathy, unspecified; I13.2 Hypertensive heart and chronic kidney disease with heart failure and with stage 5 chronic kidney disease, or end stage renal disease; E11.22 Type 2 diabetes mellitus with diabetic chronic kidney disease; I50.9 Heart failure, unspecified; N18.9 Chronic kidney disease, unspecified; I25.2 Old myocardial infarction; I25.10 Atherosclerotic heart disease of native coronary artery without angina pectoris; F41.9 Anxiety disorder, unspecified; F17.200 Nicotine dependence, unspecified, uncomplicated | CPT/HCPCS: G0463 ==

== ENCOUNTER 2018-12-29 15:50 | Inpatient (IN) | payer OTHER ==
[~2018-12-29] VITALS: Ht 165.1 cm; Wt 82.0 kg
[2018-12-29 17:08] LABS: BASOPHILS ABSOLUTE AUTO 0.03 K/mm3 (0.00-0.23); BASOPHILS PERCENT AUTO 0 % (0-2); EOSINOPHILS ABSOLUTE AUTO 0.28 K/mm3 (0.00-0.68); EOSINOPHILS PERCENT AUTO 3 % (0-6); Hematocrit 34.2 % (33.0-51.0); IMMATURE GRAN ABSOLUTE AUTO 0.03 K/mm3 (0.00-0.10); IMMATURE GRAN PERCENT AUTO 0 % (0-1); LYMPHOCYTES ABSOLUTE AUTO 1.87 K/mm3 (0.84-5.20); LYMPHOCYTES PERCENT AUTO 19 % (21-46); MONOCYTES ABSOLUTE AUTO 0.44 K/mm3 (0.16-1.47); MONOCYTES PERCENT AUTO 5 % (4-13); Mean Corpuscular HGB 30.1 pg (26.0-34.0); Mean Corpuscular HGB Conc 32.2 g/dL (31.5-36.5); Mean Corpuscular Volume 93 fL (80-100); Mean Platelet Volume 9.5 fL (9.1-12.4); NEUTROPHILS ABSOLUTE AUTO 7.02 K/mm3 (1.96-9.15); NEUTROPHILS PERCENT AUTO 73 % (41-73); Platelet Count 375 K/mm3 (150-400); RDW Coefficient Variation 15.6 % (11.7-14.2); RDW Standard Deviation 53.2 fL (35.1-46.3); Red Blood Cell Count 3.66 M/mm3 (3.80-5.20); White Blood Cell Count 9.67 K/mm3 (4.00-11.30)
[2018-12-29 17:32] LABS: Albumin, Blood 3.1 g/dL (3.4-5.0); Albumin/Globulin Ratio 0.6 (0.8-1.8); Bilirubin, Total 0.4 mg/dL (0.1-1.0); Bun/Creatinine Ratio 8.8 (12.0-20.0); Calcium, Blood 9.2 mg/dL (8.5-10.1); Creatinine, Blood 1.48 mg/dL (0.40-1.00); Globulin, Blood 5.3 g/dL (2.2-4.0); Potassium, Blood 3.8 mmol/L (3.5-5.5); Total Protein, Blood 8.4 g/dL (6.4-8.2)
[2018-12-29] MEDS ORDERED: METO25ER PO (18:11)
[2018-12-29] MEDS ORDERED: TRAZ100 PO (18:11)
[2018-12-29] MEDS ORDERED: CLIN300 PO (18:12)
--- NOTE | 2018-12-30 00:13 | NUR ---
PATIENT IS A NEW ADMIT FROM THE ED. AXO X3 AND LBKA. TWO PERSON TRANSFER FROM W/C TO BED. PATIENT ORIENTED TO CALL LIGHT SYSTEM. ON RA. DENIES SOB AND N/V. PATIENT REPORTS RIGHT TOES PAIN. PATIENT MEDICATED PER EMAR. CALL LIGHT IN REACH. WILL CONTINUE TO MONITOR.
--- NOTE | 2018-12-30 00:26 | NUR ---
CBG 225 AND HUMALOG GIVEN PER EMAR. PATIENT RESTING WATCHING TV. CALL LIGHT IN REACH.
--- NOTE | 2018-12-30 02:13 | NUR ---
CONSULTS CALLED INTO ANSWERING SERVICE: DR DURÁN AND DR BRANDT
--- NOTE | 2018-12-30 03:29 | NUR ---
SHIFT SUMMARY PATIENT IS A NEW ADMIT FROM ED THIS SHIFT. AXOX 3 AND W/C BOUND WITH LBKA. RAMAH [place] CHAPTER RIGHT SIDE AND PARTIAL LS. CBG 225, AC/HS. CEDS. TWO CONSULTS CALLED IN PER ORDERS. TWO PERSON ASSIST TO BSC. PATIENT REPORTS RIGHT FOOT PAIN AND RECEIVED FENTANYL X ONE AND OXY 5 MG THE SECOND TIME. PATIENT ABLE TO SLEEP WITH REDUCED PAIN. CONSENT TO PHOTOGRAPH SIGNED AND RIGHT FOOT PHOTOGRAPH AND IN CHART. VSS/AFEBRILE. DENIES SOB AND N/V. REPORTS DAILY MARIQUINA USE. CONTACT PRECAUTIONS. CALL LIGHT IN REACH. BED IN LOWEST POSITION. WILL CONTINUE TO MONITOR UNTIL DAY SHIFT NURSE ASSUMES CARE.
[2018-12-30 05:32] LABS: BASOPHILS ABSOLUTE AUTO 0.03 K/mm3 (0.00-0.23); BASOPHILS PERCENT AUTO 0 % (0-2); EOSINOPHILS ABSOLUTE AUTO 0.46 K/mm3 (0.00-0.68); EOSINOPHILS PERCENT AUTO 4 % (0-6); Hemoglobin 10.6 g/dL (11.5-16.0); IMMATURE GRAN ABSOLUTE AUTO 0.03 K/mm3 (0.00-0.10); IMMATURE GRAN PERCENT AUTO 0 % (0-1); LYMPHOCYTES PERCENT AUTO 17 % (21-46); MONOCYTES ABSOLUTE AUTO 0.59 K/mm3 (0.16-1.47); MONOCYTES PERCENT AUTO 6 % (4-13); Mean Corpuscular HGB Conc 32.1 g/dL (31.5-36.5); Mean Corpuscular Volume 94 fL (80-100); Mean Platelet Volume 9.4 fL (9.1-12.4); NEUTROPHILS ABSOLUTE AUTO 7.64 K/mm3 (1.96-9.15); NEUTROPHILS PERCENT AUTO 72 % (41-73); Platelet Count 351 K/mm3 (150-400); RDW Coefficient Variation 15.9 % (11.7-14.2); RDW Standard Deviation 54.2 fL (35.1-46.3); Red Blood Cell Count 3.53 M/mm3 (3.80-5.20); White Blood Cell Count 10.55 K/mm3 (4.00-11.30)
[2018-12-30 05:48] LABS: Bun/Creatinine Ratio 10.1 (12.0-20.0); Calcium, Blood 8.9 mg/dL (8.5-10.1); Creatinine, Blood 1.48 mg/dL (0.40-1.00); Potassium, Blood 3.5 mmol/L (3.5-5.5)
--- NOTE | 2018-12-30 18:35 | NUR ---
PT SOBBING AND TEARFUL THIS MORNING, MEDICATED PER EMAR. PT REPORTS NO RELIEF WITH ROXICODONE AND MINIMAL RELIEF WITH IV FENTANYL. DR MENDOZA NOTIFIED AND PAIN MEDS CHANGED TO IV DILAUDID q2 AND MS CONTIN q12. SEE SEP. PT REPORTS PAIN SOMEWHAT MORE RELIEVED AND SHE IS NAPPING OFF AND ON. DR WALTERS WAS UNABLE TO SEE PT TODAY, IS PLANNING ON SEEING HER TOMORROW. WILL CONTINUE TO MONITOR AND REPORT TO ONCOMING RN
[2018-12-31 05:17] LABS: BASOPHILS ABSOLUTE AUTO 0.05 K/mm3 (0.00-0.23); BASOPHILS PERCENT AUTO 0 % (0-2); EOSINOPHILS ABSOLUTE AUTO 0.43 K/mm3 (0.00-0.68); EOSINOPHILS PERCENT AUTO 4 % (0-6); Hematocrit 33.2 % (33.0-51.0); Hemoglobin 10.5 g/dL (11.5-16.0); IMMATURE GRAN ABSOLUTE AUTO 0.04 K/mm3 (0.00-0.10); IMMATURE GRAN PERCENT AUTO 0 % (0-1); LYMPHOCYTES ABSOLUTE AUTO 2.51 K/mm3 (0.84-5.20); LYMPHOCYTES PERCENT AUTO 22 % (21-46); MONOCYTES ABSOLUTE AUTO 0.52 K/mm3 (0.16-1.47); MONOCYTES PERCENT AUTO 5 % (4-13); Mean Corpuscular HGB 30.3 pg (26.0-34.0); Mean Corpuscular HGB Conc 31.6 g/dL (31.5-36.5); Mean Corpuscular Volume 96 fL (80-100); Mean Platelet Volume 9.4 fL (9.1-12.4); NEUTROPHILS ABSOLUTE AUTO 7.64 K/mm3 (1.96-9.15); NEUTROPHILS PERCENT AUTO 68 % (41-73); Platelet Count 343 K/mm3 (150-400); RDW Coefficient Variation 15.9 % (11.7-14.2); RDW Standard Deviation 55.6 fL (35.1-46.3); Red Blood Cell Count 3.47 M/mm3 (3.80-5.20); White Blood Cell Count 11.19 K/mm3 (4.00-11.30)
[2018-12-31 05:42] LABS: Bun/Creatinine Ratio 11.2 (12.0-20.0); Calcium, Blood 8.8 mg/dL (8.5-10.1); Creatinine, Blood 1.97 mg/dL (0.40-1.00); Potassium, Blood 3.8 mmol/L (3.5-5.5)
--- NOTE | 2018-12-31 06:38 | NUR ---
SHIFT SUMMARY PATIENT IS ALERT AND ORIENTED. PATIENT YELLED OUT SEVERAL TIMES THROUGHOUT THE NIGHT IN PAIN. MEDICATED ORDERED. AT TIMES STAFF WOULD CHECK ON PATIENT AND SHE WOULD BE SLEEPING WELL, THEN WAKE UP TO SEE STAFF IN ROOM AND WOULD CRY OUT IN PAIN. PATIENT DOES NOT HAVE AN ORDER FOR MECHANICAL OR CHEMICAL DVT PROPHYLAXIS, WILL NOTIFY DAYSHIFT TO CALL HOSPITALIST. PATIENT INCONTINENT. OTHER THAN PATIENT BEING IN PAIN NO OTHER CHANGES NOTED. VITALS STABLE
--- NOTE | 2018-12-31 17:51 | NUR ---
SUMMARY- PT A/O- RESTING QUIET IN BED MOST OF THE DAY. SOON STAFF COMES INTO THE ROOM BEGINS CRYING, OTHERWISE APPEARS COMFORTABLE WHEN ALONE IN ROOM. MEDICATED WITH DILAUDID 0.5MG Q2 ENTIRE SHIFT, PT STATES NO RELEIF EVER, PAIN ALWAYS 10/10- BUT APPEARS SLEEPING WITH NO OVERT SS OF PAIN WHEN STAFF NOT IN THE ROOM. VSS, INCREASED MS CONTIN FOR COMFORT. TOLERATING FOOD AND FLUIDS. IVF INFUSING. PLAN FOR REVASC PROCEDRUE 01/01- TO BE NPO AFTER MN. ALL SWABS SENT THIS PM TO CLEAR MRSA AND ESBL.
[2019-01-01 05:29] LABS: BASOPHILS ABSOLUTE AUTO 0.04 K/mm3 (0.00-0.23); BASOPHILS PERCENT AUTO 0 % (0-2); EOSINOPHILS ABSOLUTE AUTO 0.32 K/mm3 (0.00-0.68); EOSINOPHILS PERCENT AUTO 3 % (0-6); Hematocrit 31.2 % (33.0-51.0); IMMATURE GRAN ABSOLUTE AUTO 0.04 K/mm3 (0.00-0.10); IMMATURE GRAN PERCENT AUTO 0 % (0-1); LYMPHOCYTES ABSOLUTE AUTO 2.05 K/mm3 (0.84-5.20); LYMPHOCYTES PERCENT AUTO 22 % (21-46); MONOCYTES ABSOLUTE AUTO 0.45 K/mm3 (0.16-1.47); MONOCYTES PERCENT AUTO 5 % (4-13); Mean Corpuscular HGB 31.1 pg (26.0-34.0); Mean Corpuscular HGB Conc 32.1 g/dL (31.5-36.5); Mean Corpuscular Volume 97 fL (80-100); Mean Platelet Volume 9.4 fL (9.1-12.4); NEUTROPHILS ABSOLUTE AUTO 6.45 K/mm3 (1.96-9.15); NEUTROPHILS PERCENT AUTO 69 % (41-73); Platelet Count 319 K/mm3 (150-400); RDW Coefficient Variation 15.7 % (11.7-14.2); RDW Standard Deviation 56.3 fL (35.1-46.3); Red Blood Cell Count 3.22 M/mm3 (3.80-5.20); White Blood Cell Count 9.35 K/mm3 (4.00-11.30)
--- NOTE | 2019-01-01 05:46 | NUR ---
SHIFT SUMMARY PATIENT IS ALERT AND ORIENTED. PATIENT COMPLAINED OF PAIN THROUGHOUT THE NIGHT. MEDICATED ORDERED. PATIENT ON ROOM AIR. PATIENT IS INCONTINENT, AND USES THE BSC WITH HELP. PATIENT HAS BEEN IN NPO SINCE MIDNIGHT. PATIENT WAS GIVEN BENADRYL FOR ITCHINESS NO ALLERGIC REACTION NOTED. PATIENT SLEPT OFF AND ON THROUGHOUT THE NIGHT. NO OTHER CHANGES NOTED DURING SHIFT. VITALS STABLE
[2019-01-01 05:51] LABS: Albumin, Blood 2.7 g/dL (3.4-5.0); Anion Gap 6 mmol/L (6-16); Blood Urea Nitrogen 21 mg/dL (8-24); Bun/Creatinine Ratio 13.9 (12.0-20.0); CO2, Blood 28 mmol/L (21-32); Calcium, Blood 8.8 mg/dL (8.5-10.1); Chloride, Blood 107 mmol/L (98-108); Creatinine, Blood 1.51 mg/dL (0.40-1.00); Glomerular Filtration Rate 37 (60-); Glucose, Blood 172 mg/dL (70-99); Phosphorus, Blood 3.3 mg/dL (2.5-4.9); Potassium, Blood 3.8 mmol/L (3.5-5.5); Sodium, Blood 141 mmol/L (136-145)
--- NOTE | 2019-01-01 14:05 | NUR ---
AT APPROX 1345 [facility] NURSES CAME TO PROJECT DEVELOPMENT ENGINEER PATIENT FOR HER REVASCULARZATION PROCEDURE TO HER RLE. PATIENT WAS ALERT TO BASELINE FOR TRANSFER WITH NO ISSUES.
--- NOTE | 2019-01-01 14:14 | NUR ---
RECEIVED CALL FROM ACC DESK THAT PATIENT WILL NOT BE RETURNING TO MEDICAL FLOOR DIRECTLY AFTER PROCEDURE. PATIENT BELONGINGS WERE PACKED AND LABELED IN BELONGINGS BAG AND BROUGHT TO ACC DESK.
--- NOTE | 2019-01-01 18:07 | NUR ---
PT ARRIVAL. PT ARRIVED ON UNIT FROM [facility]. PT HAS LEFT FEMORAL ACCESS SITE AND GER ANKEL ATTEMPTED SITE. PT'S PROCEDURE ENDED AT 1630. FEMORAL SITE IS C/D/I NO BLOOD NOTED AT THIS TIME. ANGIOSEAL IS IN PLACE. PT'S VS STABLE. CALL LIGTH IN REACH, BED IS LOCKED AND LOW WILL CONTINUE TO MONITOR.
--- NOTE | 2019-01-02 07:23 | NUR ---
AM NOTE. ASSUMED CARE OF PT APROX 0700, PT IS A&Ox2, SHE IS ABLE TO STATE HER NAME AND FOLLOW DIRECTIONS, HOWEVER IS UNABLE TO SAY ANYTHING ELSE AT THIS TIME. PT IS S/P REVASCULARIZATION PROCEDURE BY DR. WALTERS. SHE HAS AN ACCESS SITE IN HER LEFT GROIN AND RIGHT INNER ANKEL. THERE IS A SMALL AREA OF DRY BLOOD ON THE DRESSING IN THE PT'S LEFT GROIN. THERE IS A FAINT PEDAL PULSE ON THE RIGHT FOOT. PT IS VERY TEARFUL MOST OF THE TIME, THERAPEUTIC TOUCH AND COMMUNICATION WAS PROVIDED TO THE PT. A BACK/BODY MASSAGE WAS ALSO PROVIDED TO THE PT. THIS HELPED THE PT'S ANXIETY AT THE TIME. PT HAS BEEN MEDICATED FOR PAIN AND ANXIETY PER EMAR. TELE INTACT, ST IN THE 100'S PER ACCOUNT RECEIVABLE CLERK, PT'S BP 148/68. THERE IS 1+ EDEMA TO THE PT'S RIGHT FOOT. PT'S RIGHT FOOT IS RED, DUSKY AND COOL WITH FAINT PEDAL PULSE. THE MIDDLE TWO TOES ARE BLACK. L/S CLEAR T/O DIM IN THE BASES PT IS ON RA. BT PRESENT AND HYPOACTIVE, ABD IS SOFT AND NONTENDER TO PALP. CALL LIGHT IN REACH, BED IS LOCKED AND LOW WILL CONTINUE TO MONITOR.
--- NOTE | 2019-01-02 07:33 | NUR ---
SHIFT SUMMARY PT RESTING IN ROOM OOCCASIONALLY CALLING OUT AND MOANING. PT HAD NO ACUTE CHANGES IN STATUS T/O NIGHT. CONTIUED TO BE VERY PAINFUL TO L FOOT D/T BLACKENED TOES. GROIN SITE FROM ANGIO REMAINED WNL. RESP EVEN UNLABORED SLIGHTLY TACHY AT TIMES, W/ SATS >95% ON RA. PT DENIED CP, DENIED SOB. CALL LIGHT IN REACH, PT DOES NOT USE APPROPRIATELY. BED ALARM ON FOR SAFETY. NS INFSUING IN POWERGLIDE IV.
[2019-01-02 12:27] LABS: Hematocrit 27.9 % (33.0-51.0); Mean Corpuscular HGB 30.2 pg (26.0-34.0); Mean Corpuscular HGB Conc 32.3 g/dL (31.5-36.5); Mean Platelet Volume 9.1 fL (9.1-12.4); Platelet Count 277 K/mm3 (150-400); RDW Coefficient Variation 15.2 % (11.7-14.2); RDW Standard Deviation 52.2 fL (35.1-46.3); Red Blood Cell Count 2.98 M/mm3 (3.80-5.20); White Blood Cell Count 8.66 K/mm3 (4.00-11.30)
[2019-01-02 12:28] LABS: Mean Corpuscular Volume 94 fL (80-100)
[2019-01-02 13:21] LABS: Bun/Creatinine Ratio 9.4 (12.0-20.0); Calcium, Blood 8.3 mg/dL (8.5-10.1); Creatinine, Blood 1.17 mg/dL (0.40-1.00); Potassium, Blood 3.6 mmol/L (3.5-5.5)
--- NOTE | 2019-01-02 18:35 | NUR ---
SHIFT SUMMARY. NO ACUTE CHANGES NOTED THIS SHIFT. LEFT GROIN SITE IS C/D/I, SMALL DRY BLOOD SPOT HAS NOT CHANGED SINCE THIS SHIFT STARTED. PT'S VS HAVE BEEN NORMAL. PT HAS NOT BEEN TALKING OR COMMUNICATING WITH STAFF AT ALL THIS SHIFT. PT HAS BEEN VERY TEARFUL AND CRYING DURING THE TIMES SHE IS NOT SLEEPING. PT HAS BEEN MEDICATED PER EMAR WITH SOME RELIEF BUT IT DOES NOT APPEARE TO LAST LONG. A MENTAL HEALTH CONSULT WAS PLACED PER PROVIDER, MENTAL HEALTH PROVIDER ALERTED PER PROTOCOL. CALL LIGHT IN REACH, BED IS LOCKED WITH BED ALARM ON WILL CONTINUE TO MONITOR UNTIL REPORT IS GIVEN TO ONCOMING RN.
--- NOTE | 2019-01-03 07:58 | NUR ---
SHIFT SUMMARY PATIENT MOANED/CRIED THROUGHOUT MOST OF THE NIGHT LAST NIGHT. PATIENT UNABLE TO ANSWER STAFF QUESTIONS THROUGHOUT THE NIGHT OR SPEAK TO STAFF. PATIETN ABLE TO RESPOND YES TO ONE QUESTION LAST NIGHT BUT ALL OTHER QUESTIONS PATIENT JUST LOOKED AT STAFF AND CRIED WITHOUT ANSWERING IN ANY WAY. PATIENT MINIMALLY INTERACTIVE WITH STAFF THROUGHOUT THE NIGHT. PATIENT MEDICATED FOR PAIN PER EMAR. PATIENT CONTINUES TO MOAN/CRY FREQUENTLY EVEN AFTER PAIN MEDICATION WAS ADJUSTED. PATIENT DID APPEAR TO SLEEP ON AND OFF PERIODICALLY AFTER PAIN MEDICATION WAS PROVIDED. REPOSITIONING FREQUENTLY FOR COMFORT. IV FLUIDS RUNNING PER ORDERS. VITAL SIGNS CHARTED. REPORT GIVEN TO ONCOMING RN.
--- NOTE | 2019-01-03 18:07 | NUR ---
SHIFT SUMMARY PT MOANED AND CRIED THROUGHOUT NIGHT. PT ONLY REPLIES YES OR NO AND DOES NOT ENGAGE IN CONVERSATION. PT RESTLESS IN BED. PT MEDICATED FOR PAIN PER EMAR NEEDED. PT DOES SLEEP ON AND OFF THROUGHOUT SHIFT. VS STABLE. REPOSITIONING OFFERED, BUT PT PUSHES AGAINST STAFF WHEN ATTEMPTING TO REPOSITION. ATTENDS IN PLACE BECAUSE PT IS INCONTINENT. NS INFUSING PER ORDERS. WILL CONTINUE TO MONITOR AND REPORT TO ONCOMING RN.
--- NOTE | 2019-01-03 21:45 | NUR ---
USUALLY CALM AND DOZING . FEW WORD SENTENCE AND ONLY KNOWS NAME BUT VERY SLOW TO RESPOND . QUESTIONED ABOUT PAIN AND SAYS NO .OCC MOANING OUT OUCH OUCH OUCH. WILL HOLD PAIN MED NOW SHE FALLS OFF TO SLEEP EASILY AND DOES NO COMPLAIN OF PAIN. NO APPROPRIATE ANSWERS TO QUESTIONS ASKED, PULLS OUT POWER GLIDE AT THIS TIME FOUND IV RUNNING IN BED W/ INTACT CATHETER. DOES NOT HAVE ANY RECALL OR DISCUSSION ABOUT THIS.
--- NOTE | 2019-01-04 05:26 | NUR ---
SHIFT SUMMARY. REPORTS PAIN RELIEF FROM SHOOTING PAIN RT FOOT/LEG, ONLY IF QUESTIONED AND YES AND NO ANSWERS. THIS AM MOANING AND YELLING AND CRYING AND WHEN QUESTIONED "SHE WAS COLD". NOT A PAIN ISSUE. TOOK A PUDDING LAST NOC BUT HAD TO BE FED. VERY UNMOTIVATED AND WILL NOT USSE CALL LITE AND WILL NOT ASK FOR BED LING AND SOAKS ATTENDS . SOME CHAPPED SKIN FORTUNATO AREA . MAYBE YEAST. PROTECTIVE UNGT APPLIED. NO CHANGE IN RT FOOT APPEARANCE AND PULSE DP 1+
--- NOTE | 2019-01-04 18:09 | NUR ---
SHIFT SUMMARY PT ONLY MOANING OR NODDING YES OR NO. PT OCCASIONALY ANSWERS QUESTIONS WITH SHORT SENTENCES, BUT TAKES ENCOURAGEMENT. VS STABLE. PT MEDICATED FOR PAIN IN RIGHT FOOT NEEDED. PT REPOSITIONING HERSELF IN BED. PT HAD TWO INCONTINENT VOIDS AND ATTENDS IN PLACE. ORTHO CONSULT CALLED IN TODAY. WILL CONTINUE TO MONITOR AND REPORT TO ONCOMING RN. CALL LIGHT IN REACH.
--- NOTE | 2019-01-05 02:09 | NUR ---
ASSUMED CARE AT 1900/ FEW STATEMENTS SHORT SENTENCE .AND KNOWS NAME AND . AND SAYS A FEW THINGS ABOUT WHO HELPS HER FOR TRANSPORTATION AT HER HOME. WHEN QUESTIONED ABOUT PAIN SHE SAYS I HAVE NO PAIN BUT A LOT OF MOANING TAKES PLACE AND SHE SAYS " I DONT NEED ANYTHING. " LATER AGREES TO HAVE PAIN MED DUE TO SHOOTING PAIN THRU RT FOOT
--- NOTE | 2019-01-05 06:23 | NUR ---
SHIFT SUMMARY. A LOT OF BLANK STARES WHEN QUESTIONS ASKED TO CHECK MENTATION. REMINDED TO USE CALL LITE AND NOT TO SIT IN WET ATTENDS. DOES NOT EXPRESS UNDERSTANDING IN MOST THINGS. ANNOYED BY INSTRUCTIONS. ONLY KNOWS NAME AND CONSISTANTLY. COMFORTABLE PAIN RELIEF MOSTLY. NEVER ASKS FOR PAIN MED.
--- NOTE | 2019-01-05 17:42 | NUR ---
SHIFT SUMMARY PT MORE ALERT THIS SHIFT, SPEAKING IN FULL SENTENCES. VS STABLE. PT CRYING OUT THROUGHOUT SHIFT. PT MEDICATED FOR PAIN IN RIGHT FOOT NEEDED. PT REPOSITIONED Q2H. PT ASSISTS WITH REPOSITIONING AND MOVES IN BED FREQUENTLY. WILL CONTINUE TO MONITOR AND REPORT TO ONCOMING RN. CALL LIGHT IN REACH.
--- NOTE | 2019-01-06 05:23 | NUR ---
PATIENT ABLE TO TALK AND CONVERSE TONIGHT. PATIENT SLEPT WELL. REPOSITIONED EVERY 2 HOURS. PATIENT COMPLAINED OF PAIN IN THE BEGINNING OF THE NIGHT, RECIEVED HYDROMORPHONE PRN. DENIED PAIN THE REST OF THE NIGHT.
--- NOTE | 2019-01-06 10:16 | NUR ---
RECEIVED REPORT AND ASSUMED CARE AT SHIFT CHANGE. PT IS TEARFUL AT THAT TIME, HOWEVER SHE SELF REGULATES WITHIN A FEW MINUTES. DR. FAIRBANKS IN TO SEE PATIENT AND DISCUSS DISCHARGE AND PLAN OF CARE AND OUTPATIENT FOLLOW UP AND PLAN WITH DR. OLSON. PT UNDERSTANDS AND EXPRESSED HAPPINESS TO GO HOME. PT PRE FABRICATOR CASSIE FROM [facility] CALLED AND PT GAVE VERBAL OKAY TO UPDATE HER ON THE POC. CASSIE STATES THAT PT LIVES AT [facility] AND WILL WORK ON RESUMING HER IN HOME CARE/ASSISTANCE THROUGH THE [facility] OFFICE. UPDATED CARE MANAGEMENT YADIRA AND WILL AWAIT DISCHARGE ORDER.
[2019-01-06] MEDS ORDERED: MORP15ER PO (16:06)
--- NOTE | 2019-01-06 17:51 | NUR ---
PT DISCHARGE PAPERWORK AND PREP TO DISCHARGE COMPLETED AT 1645. PT SITTING AT [facility] AWAITING TRANSPORT AT 1730. THIS RN WENT INTO ANOTHER PT ROOM, WHEN I FINISHED AND WALKED BY PCU 14, NOTICED PT WAS NOT THERE. PT LEFT BEFORE TRANSPORT ARRIVED, WENT OUTSIDE TO SMOKE AND WHEN PHOTORESIST CONTACT PRINTER FOUND PATIENT SHE SAID SHE WOULD FIND THE TRANSPORT.
== END 2019-01-06 17:23 | disposition home or self-care (01) | DRG 300 ==
LOC: ER 15:50 → MEDS 15:51 → PCU 12-30 14:12 → MEDS 12-30 14:12 → PCU 01-01 14:32
PROVIDERS: Emergency Medicine; ADMIT Internal Medicine
DX: E11.52 Type 2 diabetes mellitus with diabetic peripheral angiopathy with gangrene (principal); I96 Gangrene, not elsewhere classified; I25.810 Atherosclerosis of coronary artery bypass graft(s) without angina pectoris; E11.22 Type 2 diabetes mellitus with diabetic chronic kidney disease; I12.9 Hypertensive chronic kidney disease with stage 1 through stage 4 chronic kidney disease, or unspecified chronic kidney disease; N18.9 Chronic kidney disease, unspecified; Z79.4 Long term (current) use of insulin; E11.40 Type 2 diabetes mellitus with diabetic neuropathy, unspecified; I25.2 Old myocardial infarction; Z89.512 Acquired absence of left leg below knee; K21.9 Gastro-esophageal reflux disease without esophagitis; E55.9 Vitamin D deficiency, unspecified; Z95.5 Presence of coronary angioplasty implant and graft; F17.210 Nicotine dependence, cigarettes, uncomplicated; E78.5 Hyperlipidemia, unspecified; Z66 Do not resuscitate; F03.90 Unspecified dementia, unspecified severity, without behavioral disturbance, psychotic disturbance, mood disturbance, and anxiety; I77.1 Stricture of artery
CPT/HCPCS: 36415; 37224; 75625; 75716; 75774; 80048; 80053; 80069; 82947; 85025; 85027; 87070; 87081; 93926; 96374; 96376; 97162; 97530; 99152; 99153; 99285; C1725; C1751; C1760; C1769; C1887; C1894; G0378; J1170; J1644; J2250; J3010; J7030; Q0163; Q9967

== ENCOUNTER 2019-01-13 14:30 | Inpatient (IN) | payer OTHER ==
[~2019-01-13] VITALS: Ht 165.1 cm; Wt 77.8 kg
[~2019-01-13 14:30] MED LIST changes: +CLIN300 PO; +METO25ER PO; +MORP15ER PO; +TRAZ100 PO
[2019-01-13 15:32] LABS: BASOPHILS ABSOLUTE AUTO 0.03 K/mm3 (0.00-0.23); BASOPHILS PERCENT AUTO 0 % (0-2); EOSINOPHILS ABSOLUTE AUTO 0.03 K/mm3 (0.00-0.68); EOSINOPHILS PERCENT AUTO 0 % (0-6); Hematocrit 39.8 % (33.0-51.0); Hemoglobin 12.8 g/dL (11.5-16.0); IMMATURE GRAN ABSOLUTE AUTO 0.03 K/mm3 (0.00-0.10); IMMATURE GRAN PERCENT AUTO 0 % (0-1); LYMPHOCYTES ABSOLUTE AUTO 1.97 K/mm3 (0.84-5.20); LYMPHOCYTES PERCENT AUTO 16 % (21-46); MONOCYTES ABSOLUTE AUTO 0.37 K/mm3 (0.16-1.47); MONOCYTES PERCENT AUTO 3 % (4-13); Mean Corpuscular HGB 29.7 pg (26.0-34.0); Mean Corpuscular HGB Conc 32.2 g/dL (31.5-36.5); Mean Corpuscular Volume 92 fL (80-100); Mean Platelet Volume 9.1 fL (9.1-12.4); NEUTROPHILS ABSOLUTE AUTO 9.56 K/mm3 (1.96-9.15); NEUTROPHILS PERCENT AUTO 80 % (41-73); Platelet Count 599 K/mm3 (150-400); RDW Coefficient Variation 14.6 % (11.7-14.2); RDW Standard Deviation 49.3 fL (35.1-46.3); Red Blood Cell Count 4.31 M/mm3 (3.80-5.20); White Blood Cell Count 11.99 K/mm3 (4.00-11.30)
[2019-01-13 15:51] LABS: Albumin, Blood 3.3 g/dL (3.4-5.0); Albumin/Globulin Ratio 0.5 (0.8-1.8); Bilirubin, Total 0.6 mg/dL (0.1-1.0); Bun/Creatinine Ratio 10.7 (12.0-20.0); Creatinine, Blood 1.31 mg/dL (0.40-1.00); Globulin, Blood 6.5 g/dL (2.2-4.0); Potassium, Blood 3.8 mmol/L (3.5-5.5); Total Protein, Blood 9.8 g/dL (6.4-8.2)
[2019-01-13] MEDS ORDERED: Vitamin D2000 UNIT PO (16:49)
[2019-01-13] MEDS ORDERED: ASCO500 PO (16:49)
[2019-01-14 05:04] LABS: BASOPHILS ABSOLUTE AUTO 0.03 K/mm3 (0.00-0.23); BASOPHILS PERCENT AUTO 0 % (0-2); EOSINOPHILS ABSOLUTE AUTO 0.14 K/mm3 (0.00-0.68); EOSINOPHILS PERCENT AUTO 1 % (0-6); Hematocrit 34.5 % (33.0-51.0); Hemoglobin 10.9 g/dL (11.5-16.0); IMMATURE GRAN ABSOLUTE AUTO 0.04 K/mm3 (0.00-0.10); IMMATURE GRAN PERCENT AUTO 0 % (0-1); LYMPHOCYTES ABSOLUTE AUTO 1.57 K/mm3 (0.84-5.20); LYMPHOCYTES PERCENT AUTO 14 % (21-46); MONOCYTES ABSOLUTE AUTO 0.72 K/mm3 (0.16-1.47); MONOCYTES PERCENT AUTO 7 % (4-13); Mean Corpuscular HGB 30.3 pg (26.0-34.0); Mean Corpuscular HGB Conc 31.6 g/dL (31.5-36.5); Mean Platelet Volume 9.2 fL (9.1-12.4); NEUTROPHILS ABSOLUTE AUTO 8.58 K/mm3 (1.96-9.15); NEUTROPHILS PERCENT AUTO 77 % (41-73); Platelet Count 434 K/mm3 (150-400); RDW Coefficient Variation 14.9 % (11.7-14.2); RDW Standard Deviation 52.1 fL (35.1-46.3); White Blood Cell Count 11.08 K/mm3 (4.00-11.30)
[2019-01-14 05:05] LABS: Mean Corpuscular Volume 96 fL (80-100)
[2019-01-14 05:27] LABS: Bun/Creatinine Ratio 11.8 (12.0-20.0); Calcium, Blood 8.8 mg/dL (8.5-10.1); Creatinine, Blood 1.44 mg/dL (0.40-1.00); Potassium, Blood 3.4 mmol/L (3.5-5.5)
--- NOTE | 2019-01-14 06:28 | NUR ---
SHIFT SUMMARY: PATIENT ARRIVED TO THE FLOOR AT 2049 VIA GURNEY. SHE WAS ABLE TO TRANSFER HERSELF TO THE BED. SHE IS A AOX3 PLEASANT AND COOPERTIVE. HERE FOR GANGREEN OF THE RIGHT 2ND AND 3RD TOE THAT IS CURRENTLY BLACK AND SURPASSING THE TOE REGION TO THE FOOT. THERE IS REDNESS AROUND THE TOP OF HER FOOT. IT IS TENDER AND CAUSES HER ALOT OF PAIN. SHE WAS PRESCRIBED DILAUDID AND CAME TO THE FLOOR CRYING IN PAIN. THIS DID NOT COVER HER AND SHE STATED MOPHINE IS WHAT SHE TAKES AT HOME, BUT HAS NOT FULLY COVERED THE PAIN LATELY SO CALL TO MD GOT DILAUDID DC, AND THEN MORPHINE IV AND PO ORDERED. GAVE HER 10MG OF MORPHINE WITH HER THE MORPHINE PO THIS COVERED HER PAIN MOST OF THE NIGHT. SHE WOKE UP AROUND THIS MORNING NEEDING ANOTHER DOSE. SHE IS RESTING COMFORTABLY. NO OTHER CHANGES TO NOTE, WILL REPORT TO DAY SHIFT.
--- NOTE | 2019-01-14 18:11 | NUR ---
SHIFT SUMMARY PT HAS BEEN ANXIOUS THIS EVENING, TEARFUL AFTER DR. DURÁN IN TO SEE PT AND DISCUSSED THE PLANS FOR HER FOOT. THIS RN MEDICATED FOR PAIN SEVERAL TIMES THIS SHIFT PER EMAR. IVF INFUSING WITHOUT DIFFICULTY. NO ACUTE CHANGES THIS SHIFT. CALL LIGHT IN REACH. WILL CONTINUE TO MONITOR AND REPORT TO ONCOMING RN.
--- NOTE | 2019-01-14 18:30 | NUR ---
Pal Spiritual Care initial visit: Shea was sitting up in bed, rocking back and forth and crying. She told me her pain was more than she could bear. I informed RN. While we waited for pain meds, she told me how difficult it is to eat right and take care of herself on a very limited income. She is living in one of the more sketchy local motels and appears to have very little support. She is terribly afraid she will lose her right leg and became even more hysterical with this possibility. She is waiting for answers and POC. I was unable to console her. Case conferenced with Palliative care RN. Shea will benefit from gentle aids counselor, assurance of care/compassion, and pain management. I will continue to visit as schedule permits.
[2019-01-15 04:50] LABS: BASOPHILS ABSOLUTE AUTO 0.04 K/mm3 (0.00-0.23); BASOPHILS PERCENT AUTO 0 % (0-2); EOSINOPHILS PERCENT AUTO 4 % (0-6); Hematocrit 28.1 % (33.0-51.0); Hemoglobin 8.5 g/dL (11.5-16.0); IMMATURE GRAN ABSOLUTE AUTO 0.02 K/mm3 (0.00-0.10); IMMATURE GRAN PERCENT AUTO 0 % (0-1); LYMPHOCYTES ABSOLUTE AUTO 1.72 K/mm3 (0.84-5.20); LYMPHOCYTES PERCENT AUTO 19 % (21-46); MONOCYTES ABSOLUTE AUTO 0.51 K/mm3 (0.16-1.47); MONOCYTES PERCENT AUTO 6 % (4-13); Mean Corpuscular HGB 29.7 pg (26.0-34.0); Mean Corpuscular HGB Conc 30.2 g/dL (31.5-36.5); Mean Corpuscular Volume 98 fL (80-100); Mean Platelet Volume 9.1 fL (9.1-12.4); NEUTROPHILS ABSOLUTE AUTO 6.49 K/mm3 (1.96-9.15); NEUTROPHILS PERCENT AUTO 71 % (41-73); Platelet Count 380 K/mm3 (150-400); RDW Coefficient Variation 14.6 % (11.7-14.2); RDW Standard Deviation 52.5 fL (35.1-46.3); Red Blood Cell Count 2.86 M/mm3 (3.80-5.20); White Blood Cell Count 9.18 K/mm3 (4.00-11.30)
[2019-01-15 05:07] LABS: Bun/Creatinine Ratio 11.4 (12.0-20.0); Calcium, Blood 8.3 mg/dL (8.5-10.1); Creatinine, Blood 1.49 mg/dL (0.40-1.00); Potassium, Blood 3.7 mmol/L (3.5-5.5)
--- NOTE | 2019-01-15 07:32 | NUR ---
SHIFT SUMMARY: PT HAS BEEN UP AND DOWN IN HER CRYING LAST NIGHT, STATES SHE IS AFRAID OF HER HAVING HER KNEE AMPUTATED. DISCUSSED THE BENIFITS AND THE RISK OF THIS. SHE UNDERSTOOD BUT STILL FELT SCARED. SHE TOOK ALL HER MEDS WITH NO PROBLEMS, DENIED ANY OTHER CHANGES THROUGHOUT THE NIGHT. PAIN WAS WELL MANAGED WITH CURRENT MEDICATION. SHE DID START TO HAVE MORE ITCHING THAT WAS REALLY STARTING TO BOTHER HER, GOT A NEW ORDER FOR BENADRYL THIS MORNING FOR HER TO TAKE. INFORMED DAY SHIFT OF THE CHANGES.
--- NOTE | 2019-01-15 14:32 | NUR ---
Pal Spiritual Care note: Shea was sitting up in bed. She did not look at me or respond much at all. Her pain appears better controlled today. She is very withdrawn. I could not get her to engage. I will remain available.
--- NOTE | 2019-01-15 18:19 | NUR ---
SHIFT SUMMARY- PT C/O R FOOT/TOE PAIN. MEDS GIVEN PER EMAR. DENIES SOB. RESP E/U ON RA. DENIES N/V. PT TO BE NPO AFTER MIDNIGHT FOR L BKA TOMORROW. NO OTHER SIGNIFICANT CHANGES THIS SHIFT.
[2019-01-15 21:10] LABS: Vancomycin, Trough 17.6 ug/mL (5.0-10.0)
[2019-01-16 05:23] LABS: BASOPHILS ABSOLUTE AUTO 0.03 K/mm3 (0.00-0.23); BASOPHILS PERCENT AUTO 0 % (0-2); EOSINOPHILS ABSOLUTE AUTO 0.38 K/mm3 (0.00-0.68); EOSINOPHILS PERCENT AUTO 5 % (0-6); Hematocrit 28.3 % (33.0-51.0); Hemoglobin 8.7 g/dL (11.5-16.0); IMMATURE GRAN ABSOLUTE AUTO 0.03 K/mm3 (0.00-0.10); IMMATURE GRAN PERCENT AUTO 0 % (0-1); LYMPHOCYTES ABSOLUTE AUTO 1.64 K/mm3 (0.84-5.20); LYMPHOCYTES PERCENT AUTO 21 % (21-46); MONOCYTES ABSOLUTE AUTO 0.54 K/mm3 (0.16-1.47); MONOCYTES PERCENT AUTO 7 % (4-13); Mean Corpuscular HGB 30.2 pg (26.0-34.0); Mean Corpuscular HGB Conc 30.7 g/dL (31.5-36.5); Mean Corpuscular Volume 98 fL (80-100); Mean Platelet Volume 9.2 fL (9.1-12.4); NEUTROPHILS ABSOLUTE AUTO 5.37 K/mm3 (1.96-9.15); NEUTROPHILS PERCENT AUTO 67 % (41-73); Platelet Count 338 K/mm3 (150-400); RDW Coefficient Variation 14.6 % (11.7-14.2); RDW Standard Deviation 52.2 fL (35.1-46.3); Red Blood Cell Count 2.88 M/mm3 (3.80-5.20); White Blood Cell Count 7.99 K/mm3 (4.00-11.30)
[2019-01-16 05:53] LABS: Bun/Creatinine Ratio 11.8 (12.0-20.0); Calcium, Blood 8.3 mg/dL (8.5-10.1); Creatinine, Blood 1.44 mg/dL (0.40-1.00); Potassium, Blood 3.9 mmol/L (3.5-5.5)
--- NOTE | 2019-01-16 06:30 | NUR ---
SHIFT SUMMARY PATIENT HAS FINALLY EXCEPTED THE AMBUTATION SHE STOPPED CYING FEW HOURS INTO THE SHIFT. SHE ALSO GOT SOME REST AND HER PAIN REMAINED UNDER CONTROL. SHE HAD NO ACUTE CHANGES, SURGICAL CHECK LIST STARTED AND PACK ON THE CHART. WILL REPORT TO DAY SHIFT RN.
--- NOTE | 2019-01-16 09:43 | NUR ---
01/16/19 0943 Romeo Jacob PT ON SCHEDULED ANTIBIOTICS AND RECIEVED PRIOR TO ARRIVAL TO OR. DR AZUL ORDERED TO HAVE PT TYPED AND SCREENED. BLOOD WAS DRAWN BY THIS RN AND SENT UP TO LAB FOR TYPE AND SCREEN.
--- NOTE | 2019-01-16 14:04 | NUR ---
ARRIVAL TO ICU 1335 - PT ARRIVES FROM MEDICAL FLOOR TO ICU FOR NEED OF BIPAP. HOWEVER, WHEN SHE ARRIVES, PT IS SITTING UP IN BED, AWAKE AND ALERT, ON ROOM AIR. NO RESPIRATORY DISTRESS. SPO2 UPON IMMEDIATE ARRIVAL IS 97% ON RA. PT ARRIVES IN SOILED LINENS; CHANGED IMMEDIATELY AFTER ARRIVAL. C/O PAIN 04/24; WILL MEDICATE. WILL CONTINUE TO MONITOR. VSS AT THIS TIME.
--- NOTE | 2019-01-16 14:32 | NUR ---
PT HAVING APNIC EPISODES LASTING 10-15 SECONDS IN LENGTH[address] FAIRBANKS. DR. FAIRBANKS SAID TO ORDER BIPAP AND CONT. BIOX. NEENA RT REPORTS PT WILL REQUIRE BACK UP RATE FOR BIPAP AND NEEDS TO BE TRANSFERED TO PCU TO USE BIPAP WITH BACK UP RATE. NOTIFIED DR. FAIRBANKS. DR. FAIRBANKS SAID TO ENTER ORDER TO TRANSFER PT TO PCU. NURSING CRUSHER WET GROUND MICA REPORTS PCU FULL. PT TRANSFERED TO ICU PCU STATUS THIS AFTERNOON. REPORT CALLED TO ABE ELLIS IN ICU.
--- NOTE | 2019-01-16 17:30 | NUR ---
SHIFT SUMMARY NO APNEIC EPISODES SINCE ARRIVAL TO ICU. PT HAS MAINTAINED SPO2 97-100% ON RA ENTIRE SHIFT. WAS GIVEN ADDITIONAL DOSE OF MORPHINE FOR BREAKTHROUGH PAIN. VSS ENTIRE AFTERNOON. PT SITTING UP IN BED EATING DINNER. NO SIGNS OF DISTRESS. MD FAIRBANKS CALLED AND PT NOW MEDICAL STATUS. WILL GIVE BEDSIDE, HANDOFF REPORT TO NOC RN.
--- NOTE | 2019-01-16 20:30 | NUR ---
ASSUMED PT CARE AT 1915 PT SITTING UP IN BED VERY PAINFUL, SCREAMING HER RIGHT LEG WAS CRAMPING; OFFERED HEAT AND ICE; PT REFUSED. REWRAPPED SG WRAP TO MAYBE HELP RELIEVE ANY PAIN THAT WAS BEING CAUSED FROM CONSTRICTION; LEFT SOFT CAST PADDING IN PLACE. MEDICATED PT WITH MORPHINE 10MG IV PRN FOR BREAKTHROUGH PAIN, WHICH APPEARED EFFECTIVE FOR PT. OXYGEN SATURATIONS ARE 99% ON RA; PT DOES NOT APPEAR TO BE IN ANY SORT OF RESPIRATORY DISTRESS. PT IS NOTED TO BE INCONTINENT OF URINE; BED SATURATED; CHANGED LINEN AND PLACED NEW ATTEND AFTER PROVIDING FORTUNATO CARE AND SKIN CARE. PT STATES SHE CAN TELL WHEN SHE NEEDS TO BE CHANGED; ASKED PT TO CALL ONCE SHE IS SOILED TO PREVENT SKIN BREAKDOWN; PT VERBALIZED UNDERSTANDING. OFFERED REPOSITIONING AND PT REFUSED STATING SHE WANTED TO STAY ON HER BACK AND IN THE UPRIGHT POSITION; SHE IS ABLE TO MAKE SLIGHT POSITION CHANGES. CALL LIGHT LEFT WITHIN REACH. NO SIGNIFICANT CHANGES TO REPORT AT THIS TIME.
[2019-01-17 04:09] LABS: BASOPHILS ABSOLUTE AUTO 0.05 K/mm3 (0.00-0.23); BASOPHILS PERCENT AUTO 0 % (0-2); EOSINOPHILS ABSOLUTE AUTO 0.02 K/mm3 (0.00-0.68); EOSINOPHILS PERCENT AUTO 0 % (0-6); Hematocrit 25.9 % (33.0-51.0); Hemoglobin 8.2 g/dL (11.5-16.0); IMMATURE GRAN ABSOLUTE AUTO 0.05 K/mm3 (0.00-0.10); IMMATURE GRAN PERCENT AUTO 0 % (0-1); LYMPHOCYTES ABSOLUTE AUTO 1.74 K/mm3 (0.84-5.20); LYMPHOCYTES PERCENT AUTO 13 % (21-46); MONOCYTES ABSOLUTE AUTO 0.77 K/mm3 (0.16-1.47); MONOCYTES PERCENT AUTO 6 % (4-13); Mean Corpuscular HGB 29.9 pg (26.0-34.0); Mean Corpuscular HGB Conc 31.7 g/dL (31.5-36.5); Mean Platelet Volume 9.4 fL (9.1-12.4); NEUTROPHILS ABSOLUTE AUTO 11.26 K/mm3 (1.96-9.15); NEUTROPHILS PERCENT AUTO 81 % (41-73); Platelet Count 361 K/mm3 (150-400); RDW Coefficient Variation 14.6 % (11.7-14.2); RDW Standard Deviation 49.3 fL (35.1-46.3); Red Blood Cell Count 2.74 M/mm3 (3.80-5.20); White Blood Cell Count 13.89 K/mm3 (4.00-11.30)
[2019-01-17 04:11] LABS: Mean Corpuscular Volume 95 fL (80-100)
[2019-01-17 04:26] LABS: Bun/Creatinine Ratio 12.9 (12.0-20.0); Calcium, Blood 8.4 mg/dL (8.5-10.1); Creatinine, Blood 1.39 mg/dL (0.40-1.00); Magnesium, Blood 1.8 mg/dL (1.6-2.4); Potassium, Blood 3.9 mmol/L (3.5-5.5)
--- NOTE | 2019-01-17 06:53 | NUR ---
END OF SHIFT SUMMARY PT HAS REMAINED VERY PLEASANT AND COOPERATIVE WITH CARE T/O NIGHT. OCCASIONALLY WILL START CRYING REGARDING PAIN. DOES NOT USE THE CALL LIGHT EVEN THOUGH SHE HAS BEEN ENCOURAGED AND SHOWN HOW TO USE IT. MUST BE CHECKED ON FREQUENTLY FOR INCONTINENT EPISODES, WELL ASSESSMENT OF PAIN LEVEL. PT WILL FREQUENTLY C/O 10/10 PAIN AND WILL CRY WHEN YOU'RE IN THE ROOM, BUT SHORTLY AFTER LEAVING SHE WILL BE SOUND ASLEEP. MEDICATED WITH SCHEDULED MORPHINE, WELL PRN MORPHINE 10MG FOR BREAKTHROUGH PAIN. BOTH APPEAR EFFECTIVE FOR PT. WILL CONTINUE TO MONITOR AND ENCOURAGE PT TO USE CALL LIGHT UNTIL REPORT IS HANDED OFF TO ONCOMING RN.
--- NOTE | 2019-01-17 08:43 | NUR ---
0700-ASSUMED CARE OF PT. PT IS ALERT AND ORIENTED. 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 STUMP IS DRY AND INTACT.
--- NOTE | 2019-01-17 09:48 | NUR ---
ASSUMED CARE NOTE REPORT RECEIVED FROM ABE MOON.
--- NOTE | 2019-01-17 10:00 | NUR ---
0915-SEEN BY DR. FAIRBANKS. SHE WAS UPDATED OF PT'S STATUS. PT DOES NOT USE CALL LIGHT IF SHE NEEDED PAIN MEDICATION SHE JUST STARTS CRYING. PT WAS ENCOURAGED TO USE THE CALL LIGHT WHEN SHE NEEDED ANYTHING. PT IS INCONTINENT OF URINE.
--- NOTE | 2019-01-17 11:21 | NUR ---
RED REASSUMED CARE RED RN REASSUMED CARE OF PT.
--- NOTE | 2019-01-17 14:34 | NUR ---
REPORT GIVEN TO ABE ELIZABETH. PT WILL BE TRANSFERED TO ROOM 301.
--- NOTE | 2019-01-17 17:28 | NUR ---
SHIFT SUMMARY AWAITING PATIENT TO BE GIVEN PAIN MEDICATION AND THEN REPOSITIONED FOR PAIN RELIEF. SHE WAS BROUGHT TO THE FLOOR AND STARTED REPORTING PAIN. SHE GETS MORPHINE Q4 IV PUSH PRN FOR PAIN AND ALSO GETS PAIN RELIEF WITH MS CONTIN SCHEDULED. CURRENTLY PATIENT IS EATING AND DRINKING FINE.
[2019-01-17 20:42] LABS: Vancomycin, Trough 17.7 ug/mL (5.0-10.0)
--- NOTE | 2019-01-18 06:16 | NUR ---
SHIFT SUMMARY: 58 Y/O OBESE FEMALE RESTED COMFORTABLY ALL NIGHT AFTER SHE RECEIVED DOSAGE OF MORPHINE 10MG IVP AT 2018 (NEW IV WAS RESTARTED) FOR RIGHT STUMP PAIN THAT WAS RATED 10/10 PRIOR MEDICATION BEING GIVEN. PT WAS TURNED BY STAFF 3 TIMES DURING NIGHT SHE VERY RELUCTANT TO BE TURNED AND SOMETIMES DECLINES TO BE TURNED WITH THIS NURSE EMPHASIZING NEED FOR TURNS TO AVOID PRESSURE ULCERS WITH ACKNOWLEDGEMENT NOTED. PT ALERT AND ORIENTED X 4, INCONTINENT URINE. PT MAINTAINED IN CONTACT ISOLATION, BED LOW POSITION, BED ALARM APPLIED, CALL LIGHT AT SIDE.
--- NOTE | 2019-01-18 18:18 | NUR ---
shift summary patient has been pleasant today compared to yesterday. no acute concerns related to pain. she had her ms contin and one dose of the morphine iv push. she rated her pain an 8 out of 10 which is the lowest i was able to assess. she slept for about 5 hours in the middle of the day after working with physical therapy, an assessment with palliative care, and just resting throughout the day. once she was woken up for dinner she has gone back to moaning. when talking with the patient and expressing how well she has done today she forgets about the pain.
--- NOTE | 2019-01-19 03:47 | NUR ---
SHIFT SUMMARY: 74 Y/O OBESE MALE SLEPT COMFORTABLY ALL SHIFT. PT STILL HAS ALOT DIFFICULTY JUST MOVING FROM BED TO BSC VIA WALKER. PTS HAS POOR BALANCE. PT LIVES IN MOBILE HOME WITH 9 STEPS INTO ENTRANCE. PT UNSURE IF HE WILL BE ABLE TO MANAGE RETURNING HOME AT THIS TIME. PT HAD ONE EPISODE OF NAUSEA WITH ZOFRAN 4MG IVP GIVEN WITH RELIEF FELT. PT ALERT AND ORIENTED X 4, BED LOW POSITION, CALL LIGHT AT SIDE.
--- NOTE | 2019-01-19 03:56 | NUR ---
SHIFT SUMMARY: 58 Y/O OBESE FEMALE RESTED COMFORTABLY AND STATED AT BEGINNING OF SHIFT, "I INTEND TO RETURN HOME TO LOCAL MOTEL AND HAVE ALL MY FRIENDS HELP ME". PT HAS NO FAMILY AND IS CURRENTLY HOMELESS. PT ALERT AND ORIENTED X 4. PT BED LOW POSITION, CALL LIGHT AT SIDE.
--- NOTE | 2019-01-19 12:49 | NUR ---
Nurse, Jyotsna, discusses pt with palliative. She is concerned that pt is not accepting of limb loss and is not coping effectively. She states that pt may be using morphine to just sleep and not face her new reality. She recommends increasing dose of long acting morphine and take the IV morphine off of the pt's available medications, replace with hydrocodone. She is concerned that pt will not be ready to go home and function; pt is refusing SNF at this time. Jyotsna would like to wean pt from IV pain medication use. Jyotsna reports that pt is quiet in her room until Jyotsna walks by, and then pt starts moaning. Jyotsna has not used IV morphine today. Pt on day 6 of IV morphine use Pt on day 3 of IV morphine use following amputation. Pt is currently eating lunch. She shakes her head in a frustrated manor when I inquire about her pain. Instruct that I will let her eat her lunch, and return, if possible, to evaluate. She begins moaning in her room directly following my visit. Will strategize with Jyotsna and hospitalist if needed to address symptoms. Pt would likely benefit from lorazepam. Her mind seems to be in distress. Easing her mind may help until she is able to face her new body. Jyotsna reports pt stating, "I don't want to see it yet."
--- NOTE | 2019-01-19 15:00 | NUR ---
Clinical Visit: Pt is not talkative, she looks away toward window and is not interacting at all. Spoke to Jyotsna. She has spoken to Dr. Roberson and adjusted medications. Pt on oral breakthrough pain meds, and dose of gabapentin increased to pt's home dose. Reviewed antidepressant, pt's depression. Palliative care recommends a consult with Crista Thomson to assess for depression and other mental health concerns. Pt is having difficulty coping with loss of her remaining lower limb. Pt has made statements to Jyotsna about "deformed" "ugly" "nobody wants to look at me." Pt high risk for increased anxiety and depression following surgery. She does not even want to look down at her stump during dressing changes. Will need to monitor closely for increased pain, since medications have been changed. Unable to fully assess pt's pain quality due to pt not cooperating with evaluation. Recommendation: Crista Thomson consult, titrate pain medications. Pt on home dose of MS contin.
--- NOTE | 2019-01-19 17:18 | NUR ---
SHIFT SUMMARY PATIENT AND I HAVE TALKED VERY INDEPTH TODAY ABOUT THE PATIENT'S CURRENT CONDITION AND HER FEARS RELATED TO THE PATIENT'S CURRENT CONDITION. I FEARED THAT THE PATIENT MAY HAVE BEEN MEDICATING FOR PAIN RELATED TO EMOTIONAL DISTRESS. PATIENT HAS DONE WELL TODAY AND YESTERDAY WITH ONLY ONE DOSE OF BREAKTHROUGH PAIN MEDICATION IN THE DAY TIME WHICH HAS BEEN A GREAT IMPROVEMENT. PATIENT ALSO WORKED WITH PHYSICAL THERAPY BOTH YESTERDAY AND TODAY, MADE IT INTO THE CHAIR AND BACK INTO THE BED WIHT THE SLIDE BOARD. PATIENT EXPRESSED HER FEARS OF NOT HAVING ANY LEGS, WITH LIMITED MOBILITY, HER CONCERN WITH HOW SHE LOOKS, AND HER FEARS ABOUT WHERE TO GO FROM HERE. SHE IS VERY CONCERNED ABOUT THE IDEA OF DISCHARGING TO A FACILITY SHE REPORTS SHE HAD A BAD EXPERIENCE IN THE PAST. CURRENTLY I HAVE SPOKEN WITH THE PATIENT ABOUT HER NEED TO CONTINUE TO GET STRONGER IF SHE WOULD LIKE TO GO HOME FROM HERE. PATIENT IV ANTIBIOTICS HAVE BEEN DISCONTINUED, SHE HAS A NO IV ACCESS ORDER AND HAS CONTINUED TO IMPROVE IN MOOD THROUGHOUT THE DAY. SHE STILL HAS PO MEDICATIONS FOR BREAKTHROUGH PAIN, AND HAS EATEN MORE TODAY THAN SHE HAD YESTERDAY ALL DAY LONG. SHE HAS CONTINUED TO IMPROVE WITH VERBAL ENCOURAGEMENT AND WILL NEED THAT CONTINUED ENCOURAGEMENT TO IMPROVE IN ORDER TO DISCHARGE.
--- NOTE | 2019-01-20 04:03 | NUR ---
SHIFT SUMMARY- NO ACUTE CHANGES OVERNIGHT. PT. RESTED WELL T/O THE NIGHT. MEDICATED FOR PAIN PER EMAR PRN. RT STUMP SG BANDAGE C/D/I. DISCHARGE PLANNING FOR POSSIBLE REHAB IN PLACE. PT. DENIES ANY NEEDS AT THIS TIME. CALL LIGHT WITHIN REACH AND SIDE RAILS UP X2.
[2019-01-20 05:33] LABS: Creatinine, Blood 1.21 mg/dL (0.40-1.00)
--- NOTE | 2019-01-20 16:02 | NUR ---
Theraputic visit with patient. She is upset about her phone. Was able to get her a phone training and development head and review with her wihat might divert her from her stress. She reponded well to doing some coloring and art. Supplies brought will follow up.
--- NOTE | 2019-01-20 18:39 | NUR ---
ALERT. ORIENTED. DRESSING TO LEFT STUMP DRY, INTACT, NOT CHANGED. SCHEDULED AND PRN PAIN MEDS GIVEN. PATIENT TOLERATED PAIN SHE STS SHE WANTED PAIN AT 1(1-10). PATIENT WAS ABLE TO GET IN W/C AND GO OUTSIDE FOR SMOKE. REFUSES REHAB. WANTS TO GO HOME SHE STS SHE HAS A PUPPY AND SHE CAN NOT BRING IT TO REHAB. GOOD APPETITE. UNLABORED RESPIRATIONS. ABLE TO MAKE NEEDS KNOWN. WCTM
--- NOTE | 2019-01-21 04:37 | NUR ---
SHIFT SUMMARY- PT. RESTED ON/OFF T/O THE NIGHT. C/O MORE FREQUENT BREAKTHROUGH PAIN DURING SHIFT, MEDICATED PRN PER EMAR. RT STUMP DRESSING C/D/I. NO APPARENT DISTRESS NOTED. CALL LIGHT WITHIN REACH AND SIDE RAILS UP X2.
--- NOTE | 2019-01-21 09:13 | NUR ---
NOTIFIED PATIENT C/O PAIN TO LEFT STUMP NOT NEW AMPUTATION SITE. PATIENT WILL WAKE UP CRYING, HOLDING LEFT STUMP, THEN FALL BACK TO SLEEP. HAS HAD HER SCHEDULED MS CONTIN 15 MG, AND NEURONTIN. PRN NORCO ALSO GIVEN. PATIENT AT THIS TIME ADAMENT ABOUT GOING HOME, NOT TO REHAB. MD TO CHECK CHART SHE HAS BEEN ADJUSTING MEDS ALREADY.
--- NOTE | 2019-01-21 10:17 | NUR ---
SLEEPING, APPEARS COMFORTABLE
--- NOTE | 2019-01-21 12:34 | NUR ---
IN W/C. SMILING. PLEASANT. GOING OUTSIDE. ADVISED ABOUT THE HEALING PROCESS AND SMOKING. STS "I DON'T SMOKE MUCH."
--- NOTE | 2019-01-21 15:38 | NUR ---
met with patient today after PT. Affect was brighter she felt she did good with PT. Gave her more art pages to color. Patient refusing snf. Pt high risk for readmission and harm or violence in her living environment. Will see if tool and die manager can get [employer] to get caregiver help with cleaning and food and shopping. Or if pt would go to outpatient therapy visits at [facility]. Pt would be canidate for persistant pain class. pt likes to be on her phone will get her links to amputee support groups online.
--- NOTE | 2019-01-21 15:50 | NUR ---
PER OFFICE ORDERS WILL BE ENTERED AFTER CLINIC AROUND 1700. PATIENT AWARE. KEEPING PATIENT NPO AT THIS TIME.
--- NOTE | 2019-01-21 18:30 | NUR ---
ALERT. ORIENTED. GOOD PAIN CONTROL IN AFTERNOON. PLEASANT. OUTSIDE ONCE FOR SMOKING. STS FRIEND "WILL BRING IN PROSTHETIC IN A FEW DAYS." PER OUTBOUND SALES CONSULTANT THEY WERE HOPING FOR TOMORROW TO SEE HOW WELL SHE CAN DO STANDING AND TRANSFERRING. NO ACUTE DISTRESS NOTED. NO DRAINAGE FROM DRESSING SITE. WCTM.
--- NOTE | 2019-01-22 03:37 | NUR ---
SHIFT SUMMARY- SLEPT ON/OFF T/O THE NIGHT, NO APPARENT DISTRESS NOTED. PAIN WELL MANAGED WITH MEDS MOST OF THE SHIFT. EARLY AM C/O PAIN TO THE LT. STUMP. MEDICATED PER EMAR, DID NOT HAVE ANY RELIEF UNIT A FEW HOURS PAST ADMINISTRATION. PT. IS NOW RESTING IN BED COMFORTABLY. CALL LIGHT WITHIN REACH AND SIDE RAILS UP X2. WILL CONT TO MONITOR.
--- NOTE | 2019-01-22 11:55 | NUR ---
DENIES ANY NEED FOR PAIN MEDS
--- NOTE | 2019-01-22 12:39 | NUR ---
OUTSIDE FOR SECOND TIME. COOPERATIVE. IN A GOOD MOOD.
[2019-01-22] MEDS ORDERED: ACET500 PO (15:42)
[2019-01-22] MEDS ORDERED: INSULANPEN SC (15:46)
--- NOTE | 2019-01-22 16:42 | NUR ---
REVIEW D'C W/PATIENT. AWARE HAS 2 MEDS AT [facility]. AWARE HAS ONE F/U APPT AND OFFICE WILL CALL ABOUT APPT. ANSWER ALL QUESTIONS. CLOTHES CHANGED. AND PLACED IN HER W/C AWAITING [facility].
== END 2019-01-22 17:20 | disposition home health service (06) | DRG 239 ==
LOC: ER 14:30 → MEDS 16:36 → ERHOLD 16:36 → MEDS 20:45 → ICUW 01-16 14:05 → MEDS 01-17 14:59
PROVIDERS: Internal Medicine; Orthopaedic Surgery; Physician Assistant; ADMIT Internal Medicine
PROC: 0Y6H0Z1 Detachment at Right Lower Leg, High, Open Approach (ICD-10-PCS; principal; 2019-01-16 08:00)
DX: E11.52 Type 2 diabetes mellitus with diabetic peripheral angiopathy with gangrene (principal); A48.0 Gas gangrene; L03.90 Cellulitis, unspecified; E11.40 Type 2 diabetes mellitus with diabetic neuropathy, unspecified; E11.22 Type 2 diabetes mellitus with diabetic chronic kidney disease; N18.3 Chronic kidney disease, stage 3 (moderate); I25.10 Atherosclerotic heart disease of native coronary artery without angina pectoris; Z66 Do not resuscitate; F43.21 Adjustment disorder with depressed mood; E78.5 Hyperlipidemia, unspecified; K21.9 Gastro-esophageal reflux disease without esophagitis; E89.0 Postprocedural hypothyroidism; M19.90 Unspecified osteoarthritis, unspecified site; F03.90 Unspecified dementia, unspecified severity, without behavioral disturbance, psychotic disturbance, mood disturbance, and anxiety; F17.210 Nicotine dependence, cigarettes, uncomplicated; Z95.1 Presence of aortocoronary bypass graft; Z89.512 Acquired absence of left leg below knee; Z89.422 Acquired absence of other left toe(s); Z88.8 Allergy status to other drugs, medicaments and biological substances; I25.2 Old myocardial infarction; Z88.0 Allergy status to penicillin; Z79.82 Long term (current) use of aspirin; Z79.4 Long term (current) use of insulin; Z79.899 Other long term (current) drug therapy
CPT/HCPCS: 36415; 73630; 80048; 80053; 80202; 82565; 82947; 83605; 83735; 85025; 86850; 86900; 86901; 87040; 88307; 94660; 94762; 96361; 96374; 96375; 96376; 97110; 97162; 97166; 97530; 97535; 99284-25; A9270-GY; J0692; J1100; J1170; J1815; J2250; J2270; J2405; J2704; J3010; J3370; J7030; J7050; J7120; Q0163

== ENCOUNTER 2019-04-03 00:35 | Day surgery (SDC) | payer OTHER ==
[~2019-04-03 00:35] MED LIST changes: +ACET500 PO; +Vitamin D2000 UNIT PO
== END 2019-04-03 22:57 | disposition home or self-care (01) ==
LOC: WOUND 00:35
DX: E11.622 Type 2 diabetes mellitus with other skin ulcer (principal); L97.829 Non-pressure chronic ulcer of other part of left lower leg with unspecified severity; L97.819 Non-pressure chronic ulcer of other part of right lower leg with unspecified severity; E11.51 Type 2 diabetes mellitus with diabetic peripheral angiopathy without gangrene; I73.9 Peripheral vascular disease, unspecified; I12.9 Hypertensive chronic kidney disease with stage 1 through stage 4 chronic kidney disease, or unspecified chronic kidney disease; E11.22 Type 2 diabetes mellitus with diabetic chronic kidney disease; N18.9 Chronic kidney disease, unspecified; I25.10 Atherosclerotic heart disease of native coronary artery without angina pectoris; F17.200 Nicotine dependence, unspecified, uncomplicated; Z89.511 Acquired absence of right leg below knee; Z89.512 Acquired absence of left leg below knee; Z88.8 Allergy status to other drugs, medicaments and biological substances; Z88.0 Allergy status to penicillin; Z88.1 Allergy status to other antibiotic agents
CPT/HCPCS: G0463

== ENCOUNTER 2019-04-10 00:14 | Day surgery (SDC) | payer OTHER | END 2019-04-10 23:40 | disposition home or self-care (01) | LOC: WOUND | DX: E11.622 Type 2 diabetes mellitus with other skin ulcer (principal); L97.821 Non-pressure chronic ulcer of other part of left lower leg limited to breakdown of skin; L97.811 Non-pressure chronic ulcer of other part of right lower leg limited to breakdown of skin; E11.51 Type 2 diabetes mellitus with diabetic peripheral angiopathy without gangrene; I73.9 Peripheral vascular disease, unspecified; I12.0 Hypertensive chronic kidney disease with stage 5 chronic kidney disease or end stage renal disease; E11.22 Type 2 diabetes mellitus with diabetic chronic kidney disease; N18.6 End stage renal disease; I25.10 Atherosclerotic heart disease of native coronary artery without angina pectoris; F17.200 Nicotine dependence, unspecified, uncomplicated; Z89.512 Acquired absence of left leg below knee; Z89.511 Acquired absence of right leg below knee | CPT/HCPCS: 87071; 87075; 87205 ==

== ENCOUNTER 2019-04-17 00:43 | Day surgery (SDC) | payer OTHER | END 2019-04-17 22:46 | disposition home or self-care (01) | LOC: WOUND 00:43 | DX: E11.622 Type 2 diabetes mellitus with other skin ulcer (principal); L97.821 Non-pressure chronic ulcer of other part of left lower leg limited to breakdown of skin; L97.811 Non-pressure chronic ulcer of other part of right lower leg limited to breakdown of skin; E11.51 Type 2 diabetes mellitus with diabetic peripheral angiopathy without gangrene; I10 Essential (primary) hypertension; F17.200 Nicotine dependence, unspecified, uncomplicated ==

== ENCOUNTER 2019-04-24 13:40 | Day surgery (SDC) | payer OTHER | END 2019-04-24 22:49 | disposition home or self-care (01) | LOC: WOUND 13:40 | DX: E11.622 Type 2 diabetes mellitus with other skin ulcer (principal); L97.829 Non-pressure chronic ulcer of other part of left lower leg with unspecified severity; L97.819 Non-pressure chronic ulcer of other part of right lower leg with unspecified severity; T81.89XA Other complications of procedures, not elsewhere classified, initial encounter; E11.22 Type 2 diabetes mellitus with diabetic chronic kidney disease; N18.6 End stage renal disease; E11.51 Type 2 diabetes mellitus with diabetic peripheral angiopathy without gangrene | CPT/HCPCS: G0463 ==

== ENCOUNTER 2019-05-02 07:31 | Day surgery (SDC) | payer OTHER | END 2019-05-02 23:37 | disposition home or self-care (01) | LOC: WOUND 07:31 | DX: E11.622 Type 2 diabetes mellitus with other skin ulcer (principal); E11.22 Type 2 diabetes mellitus with diabetic chronic kidney disease; E11.51 Type 2 diabetes mellitus with diabetic peripheral angiopathy without gangrene; I12.9 Hypertensive chronic kidney disease with stage 1 through stage 4 chronic kidney disease, or unspecified chronic kidney disease; L97.921 Non-pressure chronic ulcer of unspecified part of left lower leg limited to breakdown of skin; L97.912 Non-pressure chronic ulcer of unspecified part of right lower leg with fat layer exposed; N18.9 Chronic kidney disease, unspecified; F41.9 Anxiety disorder, unspecified; F17.200 Nicotine dependence, unspecified, uncomplicated; Z89.512 Acquired absence of left leg below knee; Z89.511 Acquired absence of right leg below knee; Z88.0 Allergy status to penicillin; Z88.8 Allergy status to other drugs, medicaments and biological substances ==

== ENCOUNTER 2019-05-08 13:46 | Day surgery (SDC) | payer OTHER | END 2019-05-08 23:45 | disposition home or self-care (01) | LOC: WOUND 13:46 | DX: E11.622 Type 2 diabetes mellitus with other skin ulcer (principal); L97.812 Non-pressure chronic ulcer of other part of right lower leg with fat layer exposed; L97.822 Non-pressure chronic ulcer of other part of left lower leg with fat layer exposed; E11.51 Type 2 diabetes mellitus with diabetic peripheral angiopathy without gangrene; I73.9 Peripheral vascular disease, unspecified; I12.0 Hypertensive chronic kidney disease with stage 5 chronic kidney disease or end stage renal disease; E11.22 Type 2 diabetes mellitus with diabetic chronic kidney disease; N18.6 End stage renal disease; F17.200 Nicotine dependence, unspecified, uncomplicated; Z89.512 Acquired absence of left leg below knee; Z89.511 Acquired absence of right leg below knee ==

== ENCOUNTER 2019-06-27 03:14 | Emergency (ER) | payer OTHER ==
[~2019-06-27] VITALS: Ht 152.4 cm; Wt 90.7 kg
[~2019-06-27 03:14] MED LIST changes: -ACET500 PO; -Aspir 8181 MG PO; -BYDUREON P2 MG/0.65 SC; -LEVSOD112 PO; -METO25ER PO; -OMEPRAZOLE20 MG PO; -TRAZ100 PO; -Vitamin D2000 UNIT PO
[2019-06-27] MEDS ORDERED: PLAVIX75 MG PO (03:27)
[2019-06-28] MEDS ORDERED: OMEPRAZOLE20 MG PO (13:14)
[2019-06-28] MEDS ORDERED: LEVSOD112 PO (13:14)
[2019-06-28] MEDS ORDERED: METO25ER PO (13:15)
[2019-06-28] MEDS ORDERED: ATOR40TA PO (13:15)
[2019-06-28] MEDS ORDERED: BASAGLAR K100 UNIT/2 SQ (13:15)
[2019-06-28] MEDS ORDERED: CYCL10 PO (13:16)
[2019-06-28] MEDS ORDERED: ROSU5 PO (13:16)
[2019-06-28] MEDS ORDERED: SPIRIVA RESPIMAT4 GM INH (13:17)
[2019-06-28] MEDS ORDERED: Cymbalta60 MG PO (13:18)
[2019-06-28] MEDS ORDERED: Aspir 8181 MG PO (13:21)
[2019-06-28] MEDS ORDERED: BYDUREON P2 MG/0.65 SC (13:32)
[2019-06-28] MEDS ORDERED: GABA300 PO (13:33)
[2019-06-28] MEDS ORDERED: TRAZ100 PO (13:33)
[2019-06-28] MEDS ORDERED: ACET500 PO (13:33)
[2019-06-28] MEDS ORDERED: ALBU90OI61 INH (13:35)
[2019-06-28] MEDS ORDERED: Vitamin D2000 UNIT PO (13:41)
[2019-06-28] MEDS ORDERED: Fruity C250 MG PO (13:41)
== END 2019-06-27 05:36 | disposition home or self-care (01) ==
LOC: ER 03:14
DX: S80.02XA Contusion of left knee, initial encounter (principal); I10 Essential (primary) hypertension; E11.51 Type 2 diabetes mellitus with diabetic peripheral angiopathy without gangrene; I73.9 Peripheral vascular disease, unspecified; I25.10 Atherosclerotic heart disease of native coronary artery without angina pectoris; E78.5 Hyperlipidemia, unspecified; D64.9 Anemia, unspecified; E03.9 Hypothyroidism, unspecified; F17.210 Nicotine dependence, cigarettes, uncomplicated; Z88.8 Allergy status to other drugs, medicaments and biological substances; Z88.0 Allergy status to penicillin; Z79.899 Other long term (current) drug therapy; Z79.4 Long term (current) use of insulin; Z79.01 Long term (current) use of anticoagulants; Z79.82 Long term (current) use of aspirin; Z89.512 Acquired absence of left leg below knee; Z89.511 Acquired absence of right leg below knee; W19.XXXA Unspecified fall, initial encounter
CPT/HCPCS: 73560-LT; 99283-25; A9270

== ENCOUNTER 2019-06-28 10:40 | Emergency (ER) | payer OTHER ==
[~2019-06-28] VITALS: Ht 152.4 cm; Wt 59.0 kg
[~2019-06-28 10:40] MED LIST changes: +PLAVIX75 MG PO
[2019-06-28] MEDS ORDERED: LEVSOD112 PO (13:14)
[2019-06-28] MEDS ORDERED: OMEPRAZOLE20 MG PO (13:14)
[2019-06-28] MEDS ORDERED: ATOR40TA PO (13:15)
[2019-06-28] MEDS ORDERED: METO25ER PO (13:15)
[2019-06-28] MEDS ORDERED: BASAGLAR K100 UNIT/2 SQ (13:15)
[2019-06-28] MEDS ORDERED: ROSU5 PO (13:16)
[2019-06-28] MEDS ORDERED: CYCL10 PO (13:16)
[2019-06-28] MEDS ORDERED: SPIRIVA RESPIMAT4 GM INH (13:17)
[2019-06-28] MEDS ORDERED: Cymbalta60 MG PO (13:18)
[2019-06-28] MEDS ORDERED: Aspir 8181 MG PO (13:21)
[2019-06-28] MEDS ORDERED: BYDUREON P2 MG/0.65 SC (13:32)
[2019-06-28] MEDS ORDERED: GABA300 PO (13:33)
[2019-06-28] MEDS ORDERED: ACET500 PO (13:33)
[2019-06-28] MEDS ORDERED: TRAZ100 PO (13:33)
[2019-06-28] MEDS ORDERED: ALBU90OI61 INH (13:35)
[2019-06-28] MEDS ORDERED: Vitamin D2000 UNIT PO (13:41)
[2019-06-28] MEDS ORDERED: Fruity C250 MG PO (13:41)
== END 2019-06-28 16:53 | disposition home or self-care (01) ==
LOC: ER 10:40
DX: M25.562 Pain in left knee (principal); Z89.512 Acquired absence of left leg below knee; Z89.511 Acquired absence of right leg below knee; I73.9 Peripheral vascular disease, unspecified; F41.9 Anxiety disorder, unspecified; W05.0XXA Fall from non-moving wheelchair, initial encounter; Z88.0 Allergy status to penicillin; Z88.8 Allergy status to other drugs, medicaments and biological substances; Z79.899 Other long term (current) drug therapy; Z79.4 Long term (current) use of insulin; Z79.82 Long term (current) use of aspirin; I10 Essential (primary) hypertension; D64.9 Anemia, unspecified; E11.9 Type 2 diabetes mellitus without complications; I25.10 Atherosclerotic heart disease of native coronary artery without angina pectoris; E78.5 Hyperlipidemia, unspecified; E03.9 Hypothyroidism, unspecified; F17.210 Nicotine dependence, cigarettes, uncomplicated
CPT/HCPCS: 73562-LT; 99283-25

== ENCOUNTER 2019-06-30 14:41 | Inpatient (IN) | payer OTHER ==
[~2019-06-30] VITALS: Ht 162.6 cm; Wt 69.3 kg
[~2019-06-30 14:41] MED LIST changes: +ACET500 PO; +Aspir 8181 MG PO; +BASAGLAR K100 UNIT/2 SQ; +BYDUREON P2 MG/0.65 SC; +Fruity C250 MG PO; +LEVSOD112 PO; +METO25ER PO; +OMEP20ER PO; +ROSU5 PO; +SPIRIVA RESPIMAT4 GM INH; +THERA-D2000 UNIT PO; +TRAZ100 PO
[2019-06-30] MEDS ORDERED: METOPROLOL SUCC25 MG PO (15:00)
[2019-06-30] MEDS ORDERED: EUTHYROX112 MC1 (15:00)
[2019-06-30] MEDS ORDERED: INSULANPEN SC (15:00)
[2019-06-30] MEDS ORDERED: DULO60 PO (15:00)
[2019-06-30] MEDS ORDERED: Omeprazole Dr 20 Mg (15:00)
[2019-06-30] MEDS ORDERED: ATORVASTATIN CA40 MG PO (15:01)
[2019-06-30 16:20] LABS: BASOPHILS ABSOLUTE AUTO 0.02 K/mm3 (0.00-0.23); BASOPHILS PERCENT AUTO 0 % (0-2); EOSINOPHILS ABSOLUTE AUTO 0.34 K/mm3 (0.00-0.68); EOSINOPHILS PERCENT AUTO 4 % (0-6); Hemoglobin 7.9 g/dL (11.5-16.0); IMMATURE GRAN ABSOLUTE AUTO 0.02 K/mm3 (0.00-0.10); IMMATURE GRAN PERCENT AUTO 0 % (0-1); LYMPHOCYTES ABSOLUTE AUTO 1.81 K/mm3 (0.84-5.20); LYMPHOCYTES PERCENT AUTO 22 % (21-46); MONOCYTES ABSOLUTE AUTO 0.48 K/mm3 (0.16-1.47); MONOCYTES PERCENT AUTO 6 % (4-13); Mean Corpuscular HGB 29.8 pg (26.0-34.0); Mean Corpuscular HGB Conc 31.6 g/dL (31.5-36.5); Mean Corpuscular Volume 94 fL (80-100); Mean Platelet Volume 9.5 fL (9.1-12.4); NEUTROPHILS ABSOLUTE AUTO 5.66 K/mm3 (1.96-9.15); NEUTROPHILS PERCENT AUTO 68 % (41-73); Platelet Count 392 K/mm3 (150-400); RDW Standard Deviation 48.7 fL (35.1-46.3); Red Blood Cell Count 2.65 M/mm3 (3.80-5.20); White Blood Cell Count 8.33 K/mm3 (4.00-11.30)
[2019-06-30 16:30] LABS: Albumin/Globulin Ratio 0.4 (0.8-1.8); Bilirubin, Total 0.5 mg/dL (0.1-1.0); Bun/Creatinine Ratio 19.8 (12.0-20.0); Calcium, Blood 8.5 mg/dL (8.5-10.1); Creatinine, Blood 1.97 mg/dL (0.40-1.00); Globulin, Blood 5.2 g/dL (2.2-4.0); Potassium, Blood 3.7 mmol/L (3.5-5.5); Total Protein, Blood 7.2 g/dL (6.4-8.2)
[2019-06-30] MEDS ORDERED: SANTYL30 GM TOP (16:51)
--- NOTE | 2019-06-30 18:10 | NUR ---
Assumed care Pt arrived from ER to room 325 via gurney, transported by chemistry technical officer. A/Ox3, very tearful d/t pain 10/10 in left stump. Incontinent, 2p roll and change. Calls appropriately. L stump open to air, redness and purulent drainage with a little blood. Pt oriented to call light, bed in lowest position, stumps elevated. Will continue to monitor until report given to oncoming RN.
--- NOTE | 2019-07-01 01:51 | NUR ---
CODE STATUS/PAIN *LATE ENTRY* PT REPORTS SHE WANTS TO BE DNR, WE HAVE A COPY OF POLST ON FILE WHICH STATES DNR. NOTIFIED DR MATSON & SHE CHANGED CODE STATUS. A COPY OF POLST WAS MADE & PLACED ON CHART. PT ALSO REPORTED VERY LITTLE RELIEF FROM ORAL PAIN MEDICATION 1 HR AFTER RECIEVING & STATED THE FENTANYL SHE RECIEVED IN THE ER WORKED WELL. DR MATSON ORDERED 25MCG FENTANYL Q4 PRN.
--- NOTE | 2019-07-01 04:36 | NUR ---
DNR BRACELET PLACED DNR BRACELET ON L WRIST, VERIFIED ORDER W/ TO PEDRO RN.
[2019-07-01 06:06] LABS: Hematocrit 22.4 % (33.0-51.0); Hemoglobin 6.9 g/dL (11.5-16.0); Mean Corpuscular HGB Conc 30.8 g/dL (31.5-36.5); Mean Corpuscular Volume 94 fL (80-100); Mean Platelet Volume 9.4 fL (9.1-12.4); Platelet Count 320 K/mm3 (150-400); RDW Coefficient Variation 13.8 % (11.7-14.2); RDW Standard Deviation 47.4 fL (35.1-46.3); Red Blood Cell Count 2.38 M/mm3 (3.80-5.20); White Blood Cell Count 6.54 K/mm3 (4.00-11.30)
[2019-07-01 06:24] LABS: Anion Gap 7 mmol/L (6-16); Blood Urea Nitrogen 35 mg/dL (8-24); Bun/Creatinine Ratio 18.8 (12.0-20.0); CO2, Blood 23 mmol/L (21-32); Calcium, Blood 7.6 mg/dL (8.5-10.1); Chloride, Blood 111 mmol/L (98-108); Creatinine, Blood 1.86 mg/dL (0.40-1.00); Glomerular Filtration Rate 29 (60-); Glucose, Blood 92 mg/dL (70-99); Potassium, Blood 3.6 mmol/L (3.5-5.5); Sodium, Blood 141 mmol/L (136-145); Vancomycin, Random 16.3 ug/mL
--- NOTE | 2019-07-01 06:37 | NUR ---
SHIFT SUMMARY AOX4. REPORTS PAIN IN LLE, MEDICATED W/FENTANYL & OXYCODONE PER ORDERS. PICS TAKEN OF WOUNDS ON BILAT BKA. L BKA IS RED, SWOLLEN, TENDER TO TOUCH W/SCANT AMOUNT SEROSANGUINOUS DRAINAGE. R BKA IS DRY & CRUSTY, FOAM WAS APPLIED TO BOTH WOUNDS. VSS. CBG @HS 85, PROVIDED SNACK SO CBG WOULD NOT DROP FURTHER. PT INCONTINENT OF URINE, CHANGE PRN. I NOTICED HGB DROPPED TO 6.9 FROM 7.9 YESTERDAY, I WILL PASS INFO ONTO ONCOMING NURSE. CALL LIGHT IN REACH.
[2019-07-01 09:43] LABS: Hematocrit 21.4 % (33.0-51.0); Hemoglobin 6.6 g/dL (11.5-16.0)
[2019-07-01 14:05] LABS: Percent Saturation 26.3 % (15.0-50.0)
--- NOTE | 2019-07-01 17:54 | NUR ---
Shift Summary A/Ox3. Medicated for left stump pain x 1 per EMAR. Pt has been up in chair for most meals using slide board and 1 assist. No other complaints from patient. She is currently receiving the first bag of PRBC's per orders. Wound dressings changed (see assessment). No other concerns at this time.
[2019-07-02 04:35] LABS: BASOPHILS ABSOLUTE AUTO 0.02 K/mm3 (0.00-0.23); BASOPHILS PERCENT AUTO 0 % (0-2); EOSINOPHILS PERCENT AUTO 6 % (0-6); Hematocrit 31.2 % (33.0-51.0); Hemoglobin 10.1 g/dL (11.5-16.0); IMMATURE GRAN ABSOLUTE AUTO 0.03 K/mm3 (0.00-0.10); IMMATURE GRAN PERCENT AUTO 0 % (0-1); LYMPHOCYTES ABSOLUTE AUTO 1.83 K/mm3 (0.84-5.20); LYMPHOCYTES PERCENT AUTO 26 % (21-46); MONOCYTES ABSOLUTE AUTO 0.48 K/mm3 (0.16-1.47); MONOCYTES PERCENT AUTO 7 % (4-13); Mean Corpuscular HGB 29.9 pg (26.0-34.0); Mean Corpuscular HGB Conc 32.4 g/dL (31.5-36.5); Mean Corpuscular Volume 92 fL (80-100); Mean Platelet Volume 9.4 fL (9.1-12.4); NEUTROPHILS ABSOLUTE AUTO 4.42 K/mm3 (1.96-9.15); NEUTROPHILS PERCENT AUTO 62 % (41-73); Platelet Count 332 K/mm3 (150-400); RDW Coefficient Variation 14.6 % (11.7-14.2); RDW Standard Deviation 49.5 fL (35.1-46.3); Red Blood Cell Count 3.38 M/mm3 (3.80-5.20); White Blood Cell Count 7.18 K/mm3 (4.00-11.30)
[2019-07-02 04:50] LABS: Albumin, Blood 1.9 g/dL (3.4-5.0); Anion Gap 5 mmol/L (6-16); Blood Urea Nitrogen 28 mg/dL (8-24); Bun/Creatinine Ratio 17.2 (12.0-20.0); CO2, Blood 24 mmol/L (21-32); Calcium, Blood 8.1 mg/dL (8.5-10.1); Chloride, Blood 113 mmol/L (98-108); Creatinine, Blood 1.63 mg/dL (0.40-1.00); Glomerular Filtration Rate 34 (60-); Glucose, Blood 68 mg/dL (70-99); Phosphorus, Blood 3.1 mg/dL (2.5-4.9); Potassium, Blood 3.9 mmol/L (3.5-5.5); Sodium, Blood 142 mmol/L (136-145)
--- NOTE | 2019-07-02 06:36 | NUR ---
SHIFT SUMMARY PT IS A 59 Y/O FEMALE, ADMITTED FOR WOUND CARE. SHE HAS AN INFECTION IN HER L BKA SITE. PT HAS BILATERAL BKA AND IS WHEELCHAIR BOUND AT BASELINE. SHE WAS MEDICATED X2 WITH PRN FENTANYL FOR LEG PAIN. NO COMPLAINTS OF NAUSEA OR SOB. VITAL SIGNS STABLE. PT RECEIVED A SECOND UNIT OF BLOOD DURING THE NIGHT. HG INCREASED FROM 6.6 TO 10.1 AFTER 2 UNITS PRBCS. NO OTHER ACUTE CHANGES IN PT CONDITION NOTED DURING THE NIGHT. WILL CONTINUE TO MONITOR AND TREAT PER EMAR UNTIL HAND OFF TO DAY SHIFT RN.
--- NOTE | 2019-07-02 18:38 | NUR ---
SHIFT SUMMARY: NO ACUTE CHANGES TO REPORT THIS SHIFT. PT A&O; CALM AND COOPERATIVE WITH CARE. MEDICATED FOR L KNEE PAIN PER EMAR. WOUND CARE TO BILATERAL BELOW-KNEE STUMPS; SMALL AMOUNT PURULENT DRAINAGE NOTED. POC GLUCOSE STABLE; NO COVERAGE REQUIRED THIS SHIFT; LANTUS DOSE DECREASED. COMPENSATION SUPERVISOR WORKING ON PLACEMENT. TM.
--- NOTE | 2019-07-03 05:07 | NUR ---
SHIFT SUMMARY PT HAS APPEARED TO BE SLEEPING OFF AND ON T/O THE NIGHT. SHE ASKED FOR PAIN MEDS ONCE. SHE WANTED FENTANYL AND PERCOCET TOGETHER. WHEN CHECKING ON HER PAIN LEVEL AFTER ADMINISTERING THESE MEDS, SHE APPEARED TO BE SLEEPING AND RESTING WELL. WHEN NOT SLEEPING, SHE QUIETLY WATCHED TV. SHE IS INCONTINENT AND HAD HER DEPENDS CHANGED T/O THE NIGHT.
[2019-07-03 05:42] LABS: Albumin, Blood 1.8 g/dL (3.4-5.0); Anion Gap 5 mmol/L (6-16); Blood Urea Nitrogen 24 mg/dL (8-24); Bun/Creatinine Ratio 14.5 (12.0-20.0); CO2, Blood 25 mmol/L (21-32); Calcium, Blood 8.3 mg/dL (8.5-10.1); Chloride, Blood 111 mmol/L (98-108); Creatinine, Blood 1.65 mg/dL (0.40-1.00); Glomerular Filtration Rate 34 (60-); Glucose, Blood 101 mg/dL (70-99); Phosphorus, Blood 3.6 mg/dL (2.5-4.9); Potassium, Blood 4.1 mmol/L (3.5-5.5); Sodium, Blood 141 mmol/L (136-145)
--- NOTE | 2019-07-03 05:56 | NUR ---
ADDENDUM PT WAS DISCOVERED CRYING IN HER ROOM AT APPROX 0515. SHE STATED SHE WAS IN PAIN WHEN ASKED WHAT HER PROBLEM WAS. SHE STATED SHE WOKE UP IN THAT MUCH PAIN AND COULDN'T STOP CRYING. SHE RECEIVED FENTANYL AND OXYCODONE FOR PAIN, WHICH HELPED IT. HER PAIN LEVEL WAS AN 8 WHEN ASKED HALF HOUR LATER.
--- NOTE | 2019-07-03 16:55 | NUR ---
PT HAS BEEN AOX4 AND COOPERATIVE OF CARE. PT TREATED FOR PAIN PER EMAR. PHYSICAL THERAPY GOT PT UP TO CHAIR AND THEN PT WAS A TWO PERSON BACK TO HER BED USING HER SLIDE BOARD. PT DOING WELL WILL CONTINUE TO MONITOR.
--- NOTE | 2019-07-04 04:26 | NUR ---
SHIFT SUMMARY PT HAS BEEN GETTING PAIN MEDS, PERCOCET AND FENTANYL FOR PAIN. SHE HAS BEEN ASKING FOR IT ALMOST EVERY 4 HOURS FOR SEVERE PAIN THAT CAUSES HER TO CRY IN PAIN. SHE ALSO HAD 1 FLEXERIL AT APPROX [phone] TO HELP CARRY HER UNTIL SHE COULD HAVE THE PERCOCET AND FENTANYL AGAIN. SHE HAS APPEARED TO BE SLEEPING FROM 0000 UNTIL NOW AT 0430. JULIEN STATES HER PAIN IS IN HER L KNEE AND IT IS MOST LIKELY D/T HER FALL SHE HAD AT HOME. SHE FELL ASLEEP IN HER W/C AND FELL OUT OF IT ONTO HER KNEES ON THE [place] FLOOR IN HER HOME. SHE STATED THE MD TOLD HER THAT HER KNEE WAS VERY BRUISED BUT NO BONES WERE BROKEN. WE WILL CONTINUE TO MEDICATE HER FOR PAIN.
[2019-07-04 05:47] LABS: Bun/Creatinine Ratio 17.5 (12.0-20.0); Calcium, Blood 8.6 mg/dL (8.5-10.1); Creatinine, Blood 1.66 mg/dL (0.40-1.00); Potassium, Blood 4.2 mmol/L (3.5-5.5)
--- NOTE | 2019-07-04 07:23 | NUR ---
ASSUMED CARE OF PT- BEDSIDE REPORT COMPLETED WITH QUIQUE CRUZ. PT SITTING UP IN BED, SLUMPED FORWARD SLEEPING AT THE TIME OF REPORT. PER REPORT PT REQUIRES PAIN MANAGEMENT ROUND THE CLOCK. PT HAS CALL LIGHT IN REACH NO S&S OF DISTRESS AT THIS TIME WILL CTM.
--- NOTE | 2019-07-04 19:33 | NUR ---
SHIFT SUMMARY- PT PAIN SEEMS WELL MANAGED SINCE THE CHANGE TO Q8P. WHEN ASKED PT WILL ALWAYS STATE 10/10 PAIN, NON-VERBAL SIGNS APPEAR TO BE 3/10 PAIN. PT MEDICATED PER EMAR NEXT DOSE AVAILABLE AFTER 1930.
--- NOTE | 2019-07-05 05:33 | NUR ---
SHIFT SUMMARY NO ACUTE CHANGES THIS SHIFT. AOX4. VSS. DENIES DYSPNEA OR N/V. REPORTS PAIN IN L KNEE & WAS MEDICATED 1X LAST NIGHT W/OXYCODONE, REPORTED 5/10 PAIN IN L KNEE THIS AM YET DENIES THE NEED FOR PAIN MEDICATION. INCONTINENT & CHANGED Q2H PRN. BILAT BKA HAVE MEPILEX BANDAGES PLACED & ARE C/D/I. CALL LIGHT IN REACH & I WCTM UNTIL DAY SHIFT RN ASSUMES CARE.
--- NOTE | 2019-07-05 18:07 | NUR ---
Shift Summary A/Ox3, cooperative with care today. Pt has been tearful at times due to "missing my puppy," otherwise pleasant. No complaints of pain, wound care completed today. No other acute changes.
--- NOTE | 2019-07-05 18:11 | NUR ---
Bowel care According to chart, pt has not had a bm since 06/28. Pt has also been refusing Miralax. Dr. Jodi gregory.
--- NOTE | 2019-07-06 17:04 | NUR ---
Shift Summary A/Ox3. Continues to cooperate with care. Mood has been labile throughout the day. Pt c/o 02/22 pain, when this RN offered Percocet, patient refuses because "it doesn't work". Pt requesting only IV pain meds, Dr. Zapata aware and no new orders received. No other concern, awaiting placement.
--- NOTE | 2019-07-06 18:11 | NUR ---
assumed care assumed care of patient at dinnertime. patient denies pain, nausea, and shortness of breath. call light in reach.
--- NOTE | 2019-07-07 01:07 | NUR ---
PATIENT COMPLAINING OF PAIN AND INCREASING SWELLING UNDER JAW LINE ON BOTH SIDES WELL PAIN IN FOREHEAD WHICH ALL WORSEN WHEN SHE TILTS HER HEAD FORWARD. UNABLE TO VISUALIZE INCREASED SWELLING DUE TO GENERALIZED SWELLING ALL OVER INCLUDING FACE AND NECK. CHEEKS LUISA AND PINK, SKIN TEMP WNL. C/O SORE THROAT WORSE TONIGHT THAT HAD STARTED STARTED SUNDAY MORNING. 20guage IV on right shoulder flushes well, but unable to draw back blood. no crepitus noted. Hospitalist notified, wants to observe for now. production control analyst notified. will continue close observation.
--- NOTE | 2019-07-07 16:04 | NUR ---
SHIFT SUMMARY NO ACUTE CHANGES. PATIENT REPORTS PAIN IN LEFT LEG AND STUMP WOUNDS BUT DECLINES PAIN MEDICATION THIS SHIFT. DENIES NAUSEA AND SHORTNESS OF BREATH. WOUND CARE COMPLETED. PATIENT UP IN CHAIR UNTIL AFTER LUNCH. PT WORKED WITH PATIENT. PATIENT TRANSFERS SBA WITH SLIDER BOARD TO CHAIR. CALL LIGHT IN REACH.
--- NOTE | 2019-07-08 04:12 | NUR ---
PT ALERT AND ORIENTED. SLEPT WELL THROUGHOUT THE NIGHT. DRESSING TO BILATERAL STUMPS CLEAN DRY AND INTACT. PT HAD 2 LOOSE BOWEL MOVEMENTS SO FAR THIS SHIFT. BOWEL MEDS HELD. NEW PREVENTIVE MEPELIX DRESSING TO COCCYX APPLIED. CALLS APPROPRIATELY. VSS, NO ACUTE CHANGES. WILL CONTINUE TO MONITOR.
--- NOTE | 2019-07-08 18:09 | NUR ---
SHIFT SUMMARY PT SLEEPING DURING SHIFT REPORT. WOKE EASILY FOR CARE. SITTING UPRIGHT IN BED FOR MEALS. BL BKA'S WITH DRSG'S ON STUMP'S. SLIDE BOARD IN RM TO TX TO CHAIR IF NEEDED. PT IN CONTACT ISO FOR ESBL AND MRSA. PT TEARFUL THIS AM REPORTING THAT SHE WAS LIVING IN [facility] IN [place], BUT THEY ARE NOT WANTING TO TAKE HER BACK AT D/C. SHE IS ALSO MISSING HER DOG WHO LIVES WITH HER. PALLIATIVE CARE AND SS CONSULT ORDERED TO ASSIST PT. NO C/O PAIN, DENIED FURTHER NEEDS. CALL LT IN REACH.
--- NOTE | 2019-07-09 06:05 | NUR ---
PT SLEPT WELL THROUGHOUT THE NIGHT. PT HAD LARGE INCONTIENT VOIDS WHICH HAS SOAKED THROUGH ATTENDS A COUPLE OF TIMES TONIGHT. NO BM TONIGHT. A/O X4 AND COOPERATIVE. DRESSING ON STUMP C/D/I. NO ACUTE CHANGES.
--- NOTE | 2019-07-09 17:58 | NUR ---
ALERT. ORIENTED. UNLABORED RESPIRATIONS. DRESSINGS X 2 CHANGED AND PICS TAKEN. WOUNDS LOOKING BETTER. COOPERATIVE. PLEASANT. TRAIL CONSTRUCTION WORKER CONSULT FOR PLACEMENT. NO ACUTE CHANGES. WCTM
--- NOTE | 2019-07-10 04:19 | NUR ---
59 year old Female with hx of wounds bilat BKA stump incision lines making progress with wound healing. Photodoc bilat le stump wounds with dressing changes 07/09/ AM shift. PT has flat caln affect. Incontinent of bowel and bladder. 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 [facility] from [facility] [place], lacks social support. Needs discharge planning to facilitate safe DC plan.
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
--- NOTE | 2019-07-10 17:23 | NUR ---
SUMMARY PT RESTING IN BED WATCHING TV, PT HAS BEEN UP IN THE CHAIR, WORKED WITH PT/OT TODAY, VALERIY WELL, PT HAS BEEN TEARFUL TODAY, MISSING HER DOG SHE REPORTS, PALLIATIVE CARE DID VISIT WITH THE PT, PT HAS BEEN COOPERATIVE WITH CARE, DRESSINGS TO BILAT STUMPS REMAIN CLEAN DRY AND INTACT, VSS, NO ACUTE CHANGES, WILL CONT TO MONITOR
--- NOTE | 2019-07-11 04:44 | NUR ---
SHIFT SUMMARY ADMIT FOR WOUND CARE. JUNIOR DOUGLAS - DAILY DRESSING CHANGES ORDERED. DNR CODE. CONTACT PRECAUTIONS FOR MRSA IN WOUND, ESBL IN URINE. PLAN IS FOR PLACEMENT, CARE MANAGEMENT IS CHECKING W/RICK CURRENTLY. PT IS FROM [facility], BUT THEY STATE THAT THE PT IS BEYOND THEIR CARE. INCONTINENT, ATTENDS IN PLACE. RA. ADA/CARDIAC DIET. ACHS. PILLS TAKEN WHOLE W/WATER. GLUCOSE 220 @ HS. PT IS COOPERATIVE W/CARE.
--- NOTE | 2019-07-11 17:46 | NUR ---
SUMMARY PT SITTING UP IN BED EATING DINNER, PT HAS BEEN PLEASANT AND COOPERATIVE WITH CARE, WORKED WITH PT/OT, HAS BEEN UP IN THE CHAIR AT THE BEDSIDE, NO COMPLAINTS, VSS, NO ACUTE CHANGES, WILL CONT TO MONITOR
--- NOTE | 2019-07-11 22:43 | NUR ---
BEGINNING SHIFT SUMMARY ASSUMED CARE OF PT AT 1900. PT WAS LYING IN BED WATCHING TV. PT IS A/O X4. PT IS BORED AND WANTS TO LEAVE AMARJIT. HEART SOUNDS REGULAR, LUNG SOUNDS CLEAR. PT WOUNDS DRESSED, SMALL YELLOW DRAINAGE ON THE BANDAGES. PT STATES THAT THE L STUMP WOUND WAS FROM FALLING AFTER SHE GOT HER OTHER LEG REMOVED AND THE R LEG HAS WOUNDS FROM BEING ALLERGIC TO THE KASSIDY IN IT. PT DENIES FEVER, N/V, OR PAIN. CALL LIGHT IN REACH, BED IN LOWEST POSTION, WILL CONTINUE TO MONITOR.
--- NOTE | 2019-07-12 06:33 | NUR ---
END SHIFT SUMMARY NO ACUTE CHANGES NOTED T/O THE NIGHT. DRESSING CHANGED PER PT REQUEST. PT WAS INCONTINENT T/O THE NIGHT. PT IS CURRENTLY SLEEPING, CALL LIGHT IN REACH, BED IN LOWEST POSTION, WILL CONTINUE TO MONITOR UNTIL DAY SHIFT NURSE ARRIVES.
--- NOTE | 2019-07-12 15:36 | NUR ---
ASSUMED CARE OF PT. ASUSMED CARE OF PT AT 1500. PT SITTING UP IN BED COLORING. LS CLEAR. HS REGULAR. PT DENIES PAIN. STUMP DRESSINGS CHANGED THIS SHIFT. PT DENIES NEEDS AT THIS TIME. WILL CONTINUE TO MONITOR.
--- NOTE | 2019-07-12 17:43 | NUR ---
SHIFT SUMMARY SEE ASSUMED CARE NOTE. PREVENTATIVE FOAM PLACED TO SACRUM. VSS. NO OTHER CHANGES IN ASSESSMENT AT THIS TIME. DRESSINGS CLEAN & INTACT. WILL CONTINUE TO MONITOR UNTIL TURNOVER IS COMPLETE.
--- NOTE | 2019-07-13 04:23 | NUR ---
SLOPE TENDER SUMMARY PT A/O X4. PLEASANT AND COOPERATIVE. DRESSING TO R HIP HAS BEEN CHANGED EARLIER IN SHIFT. EXU-DRY DRESSING USED. THREE STAFF MEMBERS ASSISTED IN ROLLING PT ON SIDE TO CHANGE DRESSING ON R HIP. NYSTATIN POWDER APPLIED TO FOLDS. PT OFFERED BED LING TWICE. PT HAD A TINY BOWEL MOVEMENT ONCE. SCAB UNDER R LEG FOUND TO BE BLEEDING WHEN STAFF ROLLED PT OVER. PRESSURE APPLIED TO BLEED AND SITE WAS CLEANED. BLEEDING HAD STOPPED AFTER PRESSURE WAS APPLIED. PT ASKED TO BE BOOSTED UP IN BED. LIFT USED TO HELP BOOST PT UP IN BED. PT REFUSED TO BE REPOSITIONED THROUGHOUT THE NIGHT. PT SLEPT WELL OVERNIGHT. YIN PATENT AND DRAINING.
--- NOTE | 2019-07-13 04:44 | NUR ---
FLOORING GRADER SUMMARY PT A/OX4, PLEASANT AND COOPERATIVE. DENIES PAIN, NAUSEA AND DIZZINIESS. DRESSING ON BILATERAL STUMPS ARE C/D/I. NO ACUTE CHANGES. WILL CONTINUE TO MONITOR.
--- NOTE | 2019-07-13 17:51 | NUR ---
SHIFT SUMMARY PATIENT IS PLEASANT, ALERT AND ORIENTED. NO ACUTE CONCERNS AT THIS TIME. WOUNDS HAVE BEEN DRESSED AND RECHANGED AT THIS TIME. SHE IS VERY PLEASANT, HAS HAD HER MEDICATIONS. DENIES ANY PAIN.
--- NOTE | 2019-07-14 03:43 | NUR ---
MOTION PICTURE SET WORKER SUMMARY PT DENIES PAIN, NAUSEA, DIZZINESS AND EXPRESSES NO OTHER COMPLAINTS. DRESSING ON BILATERAL STUMP C/D/I. NO ACUTE CHANGES. PT SLEPT WELL THROUGHOUT THE NIGHT. BED IN LOWEST POSITION, CALL LIGHT WITHIN REACH. WILL CONTINUE TO MONITOR.
--- NOTE | 2019-07-14 16:59 | NUR ---
SHIFT SUMMARY- PT A/O, COOPERATIVE, AND PLESANT. THE DRESSINGS ON HER WOULDS ARE C/D/I. PT IS INCONTINENT AND REQUIRES ASSISTANCE WITH ATTENDS CHANGES. PT HAS A SMALL REDDENDED AREA WITH SKIN BREAKDOWN ON HER COCCIX, APPLIED MEPLEX BANDAGE ON THE AREA. PT EATING AND DRINKING WELL. AWAITING PLACMENT
--- NOTE | 2019-07-14 19:40 | NUR ---
JULIEN IS SITTING ON HER BED, WATCHING TV. DENIES ANY PAIN OR DISCOMFORT. DRESSINGS TO BILATERAL KNEES ARE CLEAN DRY AND INTACT. STATES SHE KNOWS WHEN HER ATTENDS NEEDS TO BE CHANGED, AND WILL CALL. DENIES ANY NEEDS AT THIS TIME. CALL LIGHT IN REACH.
--- NOTE | 2019-07-15 05:49 | NUR ---
SHIFT SUMMARY: JULIEN VS HAVE REMAINED STABLE. SHE HAS DENIED ANY PAIN OR DISCOMFORT. DRESSING TO BILATERAL STUMPS HAVE REMAINED INTACT AND DRY. MEDS WERE GIVEN PER EMAR. BLOOD SUGAR WAS 163. NO ACUTE CHANGES. CALL LIGHT REMAINED IN REACH AND USED APPROPRIATLY.
--- NOTE | 2019-07-15 15:32 | NUR ---
SPOKE WITH PT ABOUT REQUEST TO HAVE HER [facility] BRING IN HER BYDUREON.
--- NOTE | 2019-07-15 16:55 | NUR ---
SHIFT SUMMARY- PT IS A/O COOPERATIVE AND PLESANT. PT IS INCONTINENT OF URINE AND REQUIRES FREQUENT ATTENDS CHANGES. DRESSINGS ON BLE STUMPS CHANGED TODAY. DRESSING CHANGED ON COCCIX. REQUESTED THAT PT HAVE FOSTER CARE PROVIDER BRING IN HOME BYDUREON. PT EATING AND DRINKING WELL. USES CALL LIGHT APPROPRIATLY. PT DENIES ANY PAIN THIS SHIFT.
--- NOTE | 2019-07-15 20:00 | NUR ---
ERIN WAS SITTING UP AND STARTED TO CRY SOON I WALKED IN THE ROOM. STATES SHE IS MISSING HER DOG AND HER BOYFRIEND. STATES HER BOYFRIEND PASSED A YEAR AGO AT THIS TIME. SHE WATCHED HIM . AND HER DOG IS AT HER CAREGIVERS HOME. SHE CALLED THEM TO SEE IF THEY CAN BRING HER IN BUT THEY HAVE NOT RETURNED HER CALL. ENCOURAGED HER TO CONTINUE TO TRY. WE DISCUSSED WAYS OF COPING AND MANGEING HER DEPRESSION. SHE SAID SHE WILL TRY TONIGHT. DENIES ANY OTHER NEEDS AT THIS TIME. CALL LIGHT IN REACH.
--- NOTE | 2019-07-16 06:20 | NUR ---
SHIFT SUMMARY: PAT HAD A ROUGH START TO THE SHIFT, HER DEPRESSION HIT HER A LITTLE HARD. SHE WAS MISSING HER DOG AND A BOYFRIEND THAT A YEAR AGO. SHE IMPROVED OVER THE NIGHT BY WATCHING TV AND USING DISTRACTIONS. SHE DENIED ANY NEEDS OR CONCERNS THIS SHIFT. VS HAVE REMAINED STABLE. SHE FELL ASLEEP BEFORE MIDNIGHT AND SLEPT WELL. SHE WOKE UP FEELING A LITTLE BETTER THIS MORNING. CALL LIGHT HAS REMAINED WITH IN REACH AND USED APPROPRIATLY.
--- NOTE | 2019-07-16 18:41 | NUR ---
PT ALERT, ORIENTED, AND COOPERATIVE WITH CARE THROUGHOUT THIS SHIFT. PT SITTING UP IN BED THROUGHOUT THIS SHIFT. PT USES CALL LIGHT APPROPRIATELY. WOUND DRESSINGS CHANGED ON BLE THIS SHIFT. PT CURRENTLY UP IN BED WATCHING TELEVISION.
--- NOTE | 2019-07-16 19:35 | NUR ---
PAT IS DOING HER USAL OF WATCHING TV AND BEING PLEASANT. DOES NOT COMPLAIN OR ASK FOR MUCH. STATES SHE HAS NOT HEARD BACK FROM HER CAREGIVERS ABOUT HER DOG OR [place] ABOUT HER MOVING IN. RIGHT NOW SHE DOES NOT KNOW THE PLAN FOR HER WHICH CONCERNS HER. BUT SHE CONTINUES TO CHILL OUT IN THE ROOM. CALL LIGHT IN REACH, WILL CONTINUE TO MONITOR.
--- NOTE | 2019-07-17 05:04 | NUR ---
SHIFT SUMMARY: PAT HAD ANOTHER GOOD NIGHT. SHE WATCHED TV FOR A WHILE THEN WENT TO SLEEP. SHE SLEPT WELL THROUGHOUT THE NIGHT. SHE HAD NO ACUTE CHANGES OR CONCERNS. VS HAVE REMAINED STABLE. CALL LIGHT HAS REMAINED IN REACH AND USED APPROPRIATLY.
--- NOTE | 2019-07-17 17:15 | NUR ---
pt aggmylene had some harsh news about her pet. chaplian in to visit. needs prn anexiety meds. will visit again after she has calmed a little some art therapy has worked in the past will offer again for adjuct anexiety care.
--- NOTE | 2019-07-17 17:50 | NUR ---
Routine spiritual care note: Shea was crying hysterically when I entered room. She had apparently just been told, once and for all, that she could not take her dog with her to [facility]. I sat with Raya for quite awhile, allowing her to openly weep while I held her hand and comforted. She seems child-like in her reasoning and denied being given any other option than sending the dog "back to [place] to be [place]!" Per discharge-planning note, generous offers had been made to allow Raya's dog to stay in her life, but she refused. Clearly, Shea is ovwerwhelmed, and I suspect she is unable to absorb a lot of information because of this. As Shea's sobbing became more intense, she became angry, throwing her arms up and swinging around. She began to call me profanities and asked me to leave. I honored her wishes. [employer] will remain available.
--- NOTE | 2019-07-17 17:53 | NUR ---
REFUSAL OF CARE ATTEMPTED TO CONSOLE PATIENT WITH RESPECT TO FEELINGS OF SADNESS. PATIENT WANTS TO SEE DOG. PATIENT REFUSING CARE FROM ALL STAFF AT THIS MOMENT. STAFF NOTIFIED AND CHARGE NURSE NOTIFIED. PATIENT MENTIONING FEELINGS OF SADNESS AND MENTIONED SEVERAL TIMES. PROVIDER ORDERED ONE TIME DOSE OF ATIVAN WHICH PATIENT REFUSED. PATIENT HAS TORN OFF PATIENT IDENTIFIER AND DRESSINGS ON LEGS. PROVIDER AWARE OF AGITATION OF PATIENT.
--- NOTE | 2019-07-17 18:30 | NUR ---
SHIFT SUMMARY PATIENT A/O. PATIENT A/O. BKA WOUND DRESSING CHANGED. SACRAL REDNESS DRESSING CHANGED. SEVERAL VISITS WITH STAFF UPSET PATIENT TO THE POINT OF SPEAKING ABOUT SUICIDE. PATIENT TRANSFERRED TO SPECIALTY AREA FOR SAFETY CONCERNS AT 1830 HOURS. PATIENT REMOVED PATIENT ID BRACELET AND REFUSED DINNER HOUR MEDICATIONS. LN TO CONTINUE TO MONITOR.
--- NOTE | 2019-07-17 18:32 | NUR ---
PATIENT HAD A CONVERSATION WITH SHAKA STERLING REGARDING THE PATIENTS DOG LIVING AT THE CORRECTION IN WHICH SHE RESIDED. SHAKA INFORMED HER THAT AT THIS TIME [facility] CANNOT HAVE THE DOG LIVE WITH HER. PATIENT WAS EXTREMELY UPSET, CRYING UNCONTROLABLY. PO ATIVAN ORDERED, PATIENT REFUSED THIS MEDICATION. PATIENT THEN STATED TO THIS RN "I HAVE NO REASON TO LIVE." "I WILL FUCKING KILL MYSELF IF I CANNOT GET MY DOG BACK." THIS RN INFORMED FOLEY ARTISTBERTHA AND CALLED DR. COX. DR. COX VISITED WITH PATIENT. DR. COX AGREED TO MOVE FORWARD WITH LOW RISK SUICIDE PRECAUTIONS. PATIENT MOVED TO ROOM 348.
--- NOTE | 2019-07-17 22:48 | NUR ---
1936 PT VERY WITHDRAWN AND ONLY NODS HEAD WHEN SPOKEN TO BY THIS NURSE WHILE HOLDING HEAD DOWN; DECLINES TO LET THIS NURSE REAPPLY BILATERAL STUMP MEPILEX DRESSINGS AT THIS TIME; CONTACT ISOLATION MAINTAINED FOR ESBL/MRSA; DENIES PAIN OR NAUSEA; BED ALARM APPLIED.
--- NOTE | 2019-07-18 04:17 | NUR ---
SHIFT SUMMARY: 59 Y/O OBESE FEMALE RESTED QUIETLY ALL SHIFT, VERY WITHDRAWN, ONLY NODS HEAD OR POINTS TO NEEDS SHE REQUIRES; PT DENIES SUICIDAL IDEATIONS; MAINTAINS VERY POOR EYE CONTACT; DENIES PAIN OR NAUSEA; DECLINED TO ALLOW NURSING STAFF TO REAPPLY MEPILEX DRESSING TO BILATERAL STUMPS AT THIS TIME; CONTACT PRECAUTIONS MAINTAINED FOR ESBL AND MRSA IN WOUNDS; BED ALARM APPLIED, BED LOW POSITION WITH CALL LIGHT AT SIDE; NO VITAL SIGNS OR AM LABS DRAWN PER MD ORDER FROM 07/17/19 FOR 1 FULFILLMENT COORDINATOR ONLY.
--- NOTE | 2019-07-18 18:13 | NUR ---
SHIFT SUMMARY OX3; TEARFUL AND AT TIMES SOBBING ABOUT BEING FROM DOG. CARE MANAGERS WORKING ON PLACEMENT. AMPUTEE. CBG'S AC AND HS. EATING AND DRINKING WELL. DENIES ANY PAIN. LABILE. NO IV. INCONTINENT.
--- NOTE | 2019-07-19 05:44 | NUR ---
SHIFT SUMMARY PT IS A 59 Y/O FEMALE ADMITTED FOR WOUND CARE, WITH A WOUND ON HER L BKA. PT IS CURRENTLY AWAITING PLACEMENT IN A ALF CARE FACILITY. PT HAS BLE BKA. NO COMPLAINTS OF PAIN, NAUSEA OR SOB. VITAL SIGNS STABLE. PT IS INCONTINENT AND ON BEDREST. NO ACUTE CHANGES IN PT CONDITION NOTED. WILL CONTINUE TO MONITOR AND TREAT PER EMAR UNTIL HAND OFF TO DAY SHIFT RN.
--- NOTE | 2019-07-19 15:15 | NUR ---
ANXIETY/DISTRESS: DISCUSSED SUICIDAL IDEATION WITH THE PATIENT. SHE MUMBLED THAT IT ALL DEPENDS ON WHAT HAPPENS TO HER DOG. ASKED PERMISSION TO CALL HER FRIEND CRISTOBAL (PHONE NUMBER IN THE CHART) TO CHECK ON THE DOG. PERMISSION GRANTED. PERSON WHO ANSWERED STATED THAT IT WAS A WRONG NUMBER. PATIENT IS SOBBING IN THE ROOM. PROVIDED VERBAL REASSURANCE AND SUPPORT. NOTIFIED DR. COX AND RECEIVED A ONE TIME DOSE OF LORAZEPAM.
--- NOTE | 2019-07-19 17:40 | NUR ---
END OF SHIFT SUMMARY: PATIENT DENIED PAIN THROUGHOUT THE SHIFT. PATIENT DENIED NEEDS FOR MOST OF THE SHIFT. ABLE TO FIND A BOOK FOR THE PATIENT TO READ. PATIENT WAS APPRECIATIVE. PATIENT ALLOWED RN TO APPLY ORDERED OINTMENT AND DRESSINGS TO BOTH WOUNDS ON THE ENDS OF HER BKA STUMPS. PATIENT CRIED FOR 2-3 HOURS THIS AFTERNOON. PROVIDED VERBAL REASSURANCE, DISCUSSED WITH DR. COX AND RECEIVED A ONE TIME ORDER FOR ATIVAN, AND PROVIDED PRIVACY PER PATIENT REQUEST. PATIENT ABLE TO CALM DOWN AND RESUME DISTRACTING ACTIVITIES (TV AND READING). PATIENT DENIED NEED FOR OTHER INTERVENTIONS.
--- NOTE | 2019-07-20 05:44 | NUR ---
SHIFT SUMMARY PT IS A 59 Y/O FEMALE, ADMITTED FOR WOUND CARE AND CURRENTLY AWAITING PLACEMENT. SHE IS A&O X 3, AND BEDREST WITH BLE BKA. PT WAS MEDICATED ONCE FOR NECK TENSION WITH PRN FLEXERIL. NO COMPLAINTS OF NAUSEA OR SOB. PT SLEPT FOR A FEW HOURS DURING THE MORNING. VITAL SIGNS STABLE. NO OTHER ACUTE CHANGES IN PT CONDITION NOTED. WILL CONTINUE TO MONITOR AND TREAT PER EMAR UNTIL HAND OFF TO DAY SHIFT RN.
--- NOTE | 2019-07-20 15:14 | NUR ---
SUMMARY PT IS A/O X4, PLEASANT AFFECT. STATE NO PAIN OR DISCOMFORT TODAY. SHE IS BILAT BELOW KNEE AMPUTEE. ULCER L STUMP TX'D W KIMBERLY, [place]/CORY APPLIED. WOUND ON R STUMP DRY/HEALING, OPEN TO AIR. DR STATE NO AUTE DX @ THIS TIME, [facility]. PT HAS NOT HAD BM X MULT DAYS HOWEVER SHE STATE THIS IS HER NORM, SHE ACCEPTED STOOL SOFTNERS BUT DECLINED MIRALAX, STATE PASSING GAS. VSS.
--- NOTE | 2019-07-20 20:39 | NUR ---
SUICIDE ASSESSMENT: PATIENT HAS NO SUICED IDEATIONS AT THIS TIME.
--- NOTE | 2019-07-21 06:44 | NUR ---
SHIFT SUMMARY: PATIENT IS A&OX4, NO COMPLIANTS OF PAIN, VS ARE STABLE. PATIENT IS INC. OF BLADDER THIS SHIFT. PATIENT HAS NO SUICIDE IDEATIONS AT THIS TIME. BED ALARM IS ON FOR SAFETY.
--- NOTE | 2019-07-21 17:57 | NUR ---
SHIFT SUMMARY NO ACUTE CHANGES TO PRESENT THIS SHIFT. PT AWAKE AT START OF SHIFT AND HAS REMAINED AWAKE ALL DAY, READING A BOOK OR WATCHING TV. PT UP TO W/C MOST OF DAY. PT WAITING PLACEMENT THAT WILL LET HER HAVE HER DOG, IF POSSIBLE. PER SHIFT REPORT, POSSIBLY [facility]. DENIED FURTHER NEEDS. CALL LT IN REACH.
--- NOTE | 2019-07-21 21:20 | NUR ---
SUICIDE IDEATION NO SUICIDAL THOUGHTS AT THIS TIME.
--- NOTE | 2019-07-22 07:27 | NUR ---
SHIFT SUMMARY: PATIENT IS A&OX4, NO COMPLIANTS OF PAIN. PATIENT CONTINUES TO BE INC. OF URINE. BLOOD GLUCOSE AT HS WAS 192, LANTUS 20 UNITS WAS GIVEN, NO COVERAGE PER SCALE. CALL RDZ IS WITH IN REACH.
--- NOTE | 2019-07-22 18:03 | NUR ---
SHIFT SUMMARY PATIENT A/O. PATIENT LARGELY COOPERATIVE DURING SHIFT. STILL REFUSING TO WEAR WRIST BAND BUT ACCEPTING CARE. VSS. STILL AWAITING PLACEMENT FOR THE PATIENT.
--- NOTE | 2019-07-23 07:31 | NUR ---
NOC SHIFT SUMMARY PT IS COOPERATIVE WITH CARE. VSS. SHE DID SLEEP FOR MUCH OF THE NIGHT WITH FEW COMPLAINTS OR NEEDS. NO ACUTE CHANGES. REPORT TO ONCOMING RN.
--- NOTE | 2019-07-23 18:06 | NUR ---
SHIFT SUMMARY THE PATIENT HAD A QUITE DAY. NO NEW CHANGES TO HER CARE, WITH THE EXCEPTION OF DR MENDOZA DISCONTINUING HER NEED FOR DAILY SUICIDE ASSESSMENTS. VITALS STABLE. PATIENT CALLS FOR STAFF ASSIST NEEDED. WILL CONTINUE TO MONITOR AND PROVIDE CARE NEEDED.
--- NOTE | 2019-07-24 06:36 | NUR ---
SHIFT SUMMARY PT IS A 59 Y/O FEMALE, ADMITTED FOR WOUND CARE. SHE IS A&O X 3, AND WHEELCHAIR BOUND AT BASELINE DUE TO BILATERAL BKA. PT HAS A SMALL WOUND ON HER L STUMP, WHICH IS DRESSED WITH SANTYL AND GAUZE. DRESSING C/D/I. PT WAS TEARFUL FOR PART OF THE NIGHT, R/T HER ANXIETY ABOUT HER DOG AND PLACEMENT. NO COMPLAINTS OF PAIN, NAUSEA OR SOB. VITAL SIGNS STABLE. NO ACUTE CHANGES IN PT CONDITION NOTED DURING THE NIGHT. WILL CONTINUE TO MONITOR AND TREAT PER EMAR UNTIL HAND OFF TO DAY SHIFT RN.
--- NOTE | 2019-07-24 17:30 | NUR ---
SUMMARY PT CONTINUES TO AWAIT ASSISTED LIVING WHERE SHE WILL BE ABLE TO KEEP HER DOG, DR MENDOZA IN TO DISCUSS W HER THIS AM, STATE [employer] CONTINUES TO SEEK ADEQUATE LIVING ARRANGEMENTS. PT IS A/O X4, SOMEWHAT FLAT AFFECT, COOPERATIVE. NO ACUTE MEDICAL ISSUES @ THIS TIME. HX BILAT BKA, SHE USES SLIDER TO W/C, SITS UP IN BED IND. SHE HAS SPENT HER TIME READING OR WATCHING TV TODAY. NO STATED PAIN OR DISCOMFORT. VSS. WOUND CARE TO L STUMP ULCER PROVIDED. GUT CARRIER PROVIDE COMPLETE BEDBATH.
--- NOTE | 2019-07-25 04:40 | NUR ---
SHIFT SUMMARY PT IS A 59 Y/O FEMALE, ADMITTED FOR WOUND CARE AND CURRENTLY AWAITING PLACEMENT. SHE IS A&O X 4, AND ON BEDREST/WHEELCHAIR BOUND AT BASELINE WITH BILATERAL BKA. PT HAS A SMALL WOUND ON HER L STUMP THAT IS COVERED WITH SANTYL AND A BANDAID. NO COMPLAINTS OF PAIN, NAUSEA OR SOB. PT HAS BEEN AWAKE ALL NIGHT, WITH NO COMPLAINTS. VITAL SIGNS STABLE. NO ACUTE CHANGES IN PT CONDITION NOTED DURING THE NIGHT. WILL CONTINUE TO MONITOR AND TREAT PER EMAR UNTIL HAND OFF TO DAY SHIFT RN.
--- NOTE | 2019-07-25 18:16 | NUR ---
SHIFT SUMMARY PATIENT IS PLEASANT, ALERT AND ORIENTED. NO ACUTE CONCERNS AT THIS TIME. STILL AWAITING PLACEMENT IN A FACILITY. SHE IS INCONTINENT, BUT HELPS WITH ROLLING AND CHANGES.
--- NOTE | 2019-07-26 06:38 | NUR ---
NOC SHIFT SUMMARY PT IS PLEASANT AND COOPERATIVE WIT CARE. HAS SPENT THE NIGHT SLEEPING, READING, AND WATCHING TV. VSS. BANDAIDS TO BILAT LEG SORES. PT APPEARS IN NO ACUTE DISTRESS. WILL CONTINUE TO MONITOR.
--- NOTE | 2019-07-26 17:36 | NUR ---
SHIFT SUMMARY. A&OX4, CGA TO W/C AND AWARE OF LIMITATIONS, INCONTINENT. PT DENIES PAIN, SOB, N/V. WOUND CARE COMPLETED TO BLIATERAL DISTAL BKA, NO S/SX OF INFECTION. NO NEW CHANGES OR CONCERNS.
--- NOTE | 2019-07-27 04:38 | NUR ---
NOC SHIFT SUMMARY PT IS IN WHEELCHAIR DURING SHIFT CHANGE. STAYED UP FOR ANOTHER HOUR BEFORE BEING ASSISTED BACK TO BED. SHE HAS SLEPT MUCH OF THE NIGHT. NO CHANGES NOTED THIS NIGHT. PRESENTLY APPEARS TO BE SLEEPING AND IN NO ACUTE DISTRESS. VSS. WILL CONTINUE TO MONITOR.
--- NOTE | 2019-07-27 17:51 | NUR ---
SHIFT SUMMARY. A&OX4, SBA WITH SLIDE BOARD TO W/C, AWARE OF LIMIATIONS AND CALLS APPROPRIATLY. PT DENIES PAIN, SOB, N/V. WOUND CARE COMPLETED THIS AM TO BILATERAL BKA. NO NEW CHANGES OR CONCERNS.
--- NOTE | 2019-07-28 02:58 | NUR ---
TOUCHER UP SUMMARY PT A/O X4. CALLS APPROPRIATELY. BANDAIDS DRY AND INTACT ON BILATERAL STUMP. DENIES PAIN, NAUSEA, DIZZINESS. VSS, NO ACUTE CHANGES. PLEASANT AND COOPERATIVE. BED IN LOWEST POSITION, CALL LIGHT WITHIN REACH.
--- NOTE | 2019-07-28 15:05 | NUR ---
PERMISSION FOR CARE I,MYA PIPER A [facility] [place] [employer] OPERATING ENGINEER, RECIEVED PERMISSION TO CARE FOR THIS PATIENT ON 07/28/2019 TO PROVIDE CARE ON 07/29/2019
--- NOTE | 2019-07-28 18:30 | NUR ---
SHIFT SUMMARY. PT DOING WELL THIS SHIFT. PT ASSISTED IN HER WOUND CARE AND DID WELL. NO SOB, N/V, OR PAIN. NO NEW CHANGES OR CONCERNS.
--- NOTE | 2019-07-29 06:42 | NUR ---
SHIFT SUMMARY PT IS A 59 Y/O FEMALE, ORIGINALLY ADMITTED FOR WOUND CARE AND CURRENTLY AWAITING PLACEMENT. SHE IS A&O X 4, AND WHEELCHAIR BOUND AT BASELINE WITH BLE BKA. SHE DENIED ANY COMPLAINTS OF PAIN, NAUSEA OR SOB DURING THE NIGHT. PT'S LLE DRESSING REMAINS INTACT AND IN PLACE. VITAL SIGNS STABLE. NO ACUTE CHANGES IN PT CONDITION NOTED. WILL CONTINUE TO MONITOR AND TREAT PER EMAR UNTIL HAND OFF TO DAY SHIFT RN.
--- NOTE | 2019-07-29 15:33 | NUR ---
I obtained persmission from patient to work with her in the morning on 07-30-19. Permission was obtained on 07-29-19.
--- NOTE | 2019-07-29 18:32 | NUR ---
PT. SITTING IN BED ENCOURAGE HER GET OFF HER BOTTOM IT WAS BECOMING REDDENED. MEPILEX PLACED. PT. OUT IN BURNS IN HER WC A COUPLE OF TIMES TODAY. SAT BY THE GLASS DOORS AND READ HER BOOK. NO NOTEABLE CHANGES THIS SHIFT.
--- NOTE | 2019-07-30 04:08 | NUR ---
PT HAS BEEN RESTING QUIETLY WITH OCCASIONAL AWAKENINGS. DURING ROUNDING, PT VOICED HE WAS OK WHEN NOTED SHE WAS AWAKE. CALL LIGHT IN REACH.
--- NOTE | 2019-07-30 19:00 | NUR ---
PT. SITTING IN BED. NO NOTEABLE CHANGES THIS SHIFT.
--- NOTE | 2019-07-31 07:10 | NUR ---
SHIFT SUMMARY: 59 Y/O FEMALE RESTED COMFORTABLY IN BED ALL SHIFT; DENIES PAIN OR NAUSEA; BILATERAL BELOW KNEE STUMPS BANDAIDS DRY AND INTACT TO OLD WOUNDS; BED ALARM APPLIED, BED LOW POSITION WITH CALL LIGHT AT SIDE.
--- NOTE | 2019-07-31 18:43 | NUR ---
PT. WATCHING TV AND SITTING IN BED. NO NOTEABLE CHANGES TODAY. PT. DID HAVE A LARGE BM TDAY.
--- NOTE | 2019-07-31 21:22 | NUR ---
PT RESTING COMFORTABLY IN BED.
--- NOTE | 2019-08-01 04:34 | NUR ---
SHIFT SUMMARY: 59 Y/O OBESE FEMALE RESTED COMFORTABLY ALL SHIFT; PT IS STILL AWAITING PLACEMENT INTO AFC OR LTC FACILITY AT THIS MOMENT; BILATERAL LOWER STUMP DRESSINGS ARE DRY AND INTACT; CONTACT PRECAUTIONS MAINTAINED FOR ESBL IN THE URINE; BED IN LOW POSITION WITH CALL LIGHT AT SIDE.
--- NOTE | 2019-08-01 18:17 | NUR ---
SHIFT SUMMARY: NO ACUTE CHANGES TO REPORT THIS SHIFT. PT A&O; CALM AND COOPERATIVE WITH CARE. MEDICATED FOR MUSCLE SPASMS PER EMAR. PATIENT MEDICALLY STABLE; AWAITING PLACEMENT. WCTM.
--- NOTE | 2019-08-02 03:50 | NUR ---
SHIFT SUMMARY PT HAD NOTED ISSUE WITH INCREASED PHANTOM PAIN IN BOTH LEGS. PT TX WITH PERCOCET WITH LITTLE RELIEF. PT WAS ABLE TO FALL ASLEEP AND HAD NO OTHER ISSUES NOTED WITH PAIN. PT CURRENTLY SLEEPING AND BREATHING EASY. CALL LIGHT IN REACH.
--- NOTE | 2019-08-02 15:30 | NUR ---
SHIFT SUMMARY PT IS A/O X 4 WITH NO C/O PAIN. PT IS PLEASANT AND COOPERATIVE WITH HER CARE. WOUNDS TO BLE WERE TX ORDERED AND APPEAR TO BE HEALING WELL. DOCTOR WAS NOTIFIED OF PHANTOM PAINS AND STATED THAT HE WOULD REVIEW HER MED LIST. PT READS THROUGHOUT THE DAY. SHE IS ABLE TO MAKE HER NEEDS KNOWN AND CALLS FOR HELP APPROPRIATELY.
--- NOTE | 2019-08-03 05:07 | NUR ---
SHIFT SUMMARY PT HAD NO ISSUES NOTED THIS SHIFT. PT REPORTED NO PHANTOM PAINS. PT HAS BEEN SLEEPING T/O SHIFT. PT CURRENTLY SLEEPING IN NO DISTRESS. CALL LIGHT IN REACH.
--- NOTE | 2019-08-03 15:50 | NUR ---
SHIFT SUMMARY PT IS A/O X 4 AT BASELINE WITH NO C/O PAIN. PT HAS BEEN UP TO HER W/C FOR MOST OF THE SHIFT READING TODAY. HER WOUNDS TO HER STUMPS REMAIN UNCHANGED FROM YESTERDAY. SHE GAVE HERSELF A SINK BATH IN THE BATHROOM TODAY AND WASHED HER HAIR. PT CONTINUES TO WAIT ON PLACEMENT. SHE IS ABLE TO MAKE HER NEEDS KNOWN AND CALLS FOR HELP WHEN NEEDED.
--- NOTE | 2019-08-04 06:09 | NUR ---
SHIFT SUMMARY- NO ACUTE EVENTS OVERNIGHT. PT. ASLEEP T/O THE NIGHT. NO APPARENT DISTRESS NOTED. C/O NECK PAIN 1X EARLY IN THE EVENING. MEDICATED PER EMAR, APPEARED TO HAVE GOOD RELIEF. PT. HAS WOUND TO LT STUMP, PERFORMS OWN BANDAID CHANGE. DENIED ANY OTHER NEEDS T/O THE SHIFT. CALLS APPROPRIATELY. CALL LIGHT WITHIN REACH AND SIDE RAILS UP X2. WILL CONT TO MONITOR.
--- NOTE | 2019-08-04 15:14 | NUR ---
SHIFT SUMMARY PT IS A/O X 4 WITH C/O PAIN X 1 AND MEDS WERE GIVEN ORDERED. OPEN AREA TO LEFT STUMP REMAINS UNCHANGED FROM PREVIOUS DAYS. PT HAS BEEN UP TO HER W/C MOST OF THE DAY READING HER BOOK. SHE CONTINUES TO AWAIT PLACEMENT. PT IS PLEASANT AND COOPERATIVE WITH HER CARE. SHE IS ABLE TO MAKE HER NEEDS KNOWN AND USES THE CALL LIGHT FOR HELP WHEN NEEDED.
--- NOTE | 2019-08-05 06:40 | NUR ---
SHIFT SUMMARY- NO ACUTE CHANGES OVERNIGHT. PT. RESTED COMFORTABLY T/O THE SHIFT. DENIED THE NEED FOR PAIN MEDICATION. WOUND TO THE LT STUMP REMAINS THE SAME COVERED WITH BANDAID. PT. AWAITING PLACEMENT. CALL LIGHT WITHIN REACH, WILL CONT TO MONITOR.
--- NOTE | 2019-08-05 11:25 | NUR ---
I asked pt. permission to give care as a director of emergency nursing for today 08/05/2019. Patient agreed to care on 08/05/2019.
--- NOTE | 2019-08-05 13:28 | NUR ---
Prmissin of care was given 08/05/2019 at 1315.
[2019-08-05] MEDS ORDERED: ANTACID PO (14:13)
--- NOTE | 2019-08-05 14:26 | NUR ---
Pt gave verbal permission for care on 08/05/19. PT is a/o x4.
--- NOTE | 2019-08-05 18:03 | NUR ---
PT ALERT AND ORIENTED THROUGHOUT THIS SHIFT. PT COOPERATIVE WITH CARE. PT UP TO WHEELCHAIR THIS AFTERNOON AND SAT IN THE BURNS READING HER BOOK. PT UP IN BED EATING DINNER, NO FURTHER NEEDS AT THIS TIME, CALL LIGHT IN REACH.
--- NOTE | 2019-08-06 04:23 | NUR ---
SHIFT SUMMARY- PT. ASLEEP MOST OF THE NIGHT. NO APPARENT DISTRESS NOTED. DENIED ANY PAIN OR DISCOMFORT LAST NIGHT. PT. AWAITING PLACEMENT. CALL LIGHT WITHIN REACH AND SIDE RAILS UP X2. WILL CONT TO MONITOR.
--- NOTE | 2019-08-06 18:08 | NUR ---
SHIFT SUMMARY PT HAS HAD NO ACUTE CHANGES THIS SHIFT, MEDCIATED 1X FOR PAIN (L LEG), NO OTHER COMPLAINTS OF ANY KIND. PT SITTING UP IN BED EATING DINNER & WATCHING TV, CALL LIGHT IN REACH, WILL CONT TO MONITOR UNTIL REPORT GIVEN TO DARLING FISH.
--- NOTE | 2019-08-07 06:01 | NUR ---
SLASHER HAND SUMMARY slept sitting up in bed all night. no complaints of pain or discomfort, SOB. Incontinent 3X overnight. skin intact, and bandaid covering left lower extremity wound intact without any signs of reddness, warmth or drainage.
--- NOTE | 2019-08-07 16:49 | NUR ---
SHIFT SUMMARY PT HAS HAD NO ACUTE MEDICAL CHANGES THIS SHIFT, INDEP BATHED & PERFORMED ORAL CARE, USED SLIDER INDEP (W/STAFF PRESENT) TO W/C AND STROLLED AROUND HOSPITAL HALLWAY. PT WAS TEARFUL AFTER RECEIVING A CALL FROM [facility] TODAY, RENTAL AGENT SPENT TIME @ BEDSIDE TO COMFORT PT, PT IS SITTING UP IN BED AT THIS TIME WATCHING TV, WILL CONTINUE TO MONITOR UNTIL REPORT GIVEN TO NOC RN.
--- NOTE | 2019-08-07 23:22 | NUR ---
patient metoprolol held at HS for systolic BP in 90's.
--- NOTE | 2019-08-08 05:39 | NUR ---
ELECTRICAL TECH/PROJECT MANAGER SUMMARY Poor sleep most of night. No complaints of pain. She's worried about where she will be going when she leaves the hospital. Raya didn't want anything to sleep. She drank a large cup of coffee after HS which she thinks affected her. Grateful to staff for their support. Raya has been here over a month now, and feels a little penned in
--- NOTE | 2019-08-08 18:26 | NUR ---
SHIFT SUMMARY PATIENT IS PLEASANT, ALERT AND ORIENTED. INDEPENDENT IN THE ROOM. SHE GOT IN HER WHEELCHAIR THIS MORNING. NO ACUTE CONCERNS AT THIS TIME.
--- NOTE | 2019-08-09 03:49 | NUR ---
CLOTH STRETCHER SUMMARY PT A/O X4. CALLS APPROPRIATELY. INCONTIENT AND VOIDED MULTIPLE TIMES THROUGHOUT THE NIGHT IN ATTENDS. DENIES PAIN, SOB, AND OTHER DISCOMFORTS. NO ACUTE CHANGES. CALL LIGHT WITHIN REACH, BED IN LOWEST POSITION. VSS. AWAITING PLACEMENT.
--- NOTE | 2019-08-09 17:17 | NUR ---
SHIFT SUMMARY PATIENT IS VERY EMOTIONAL TONIGHT. BUT SHE IS STILL ALERT AND PLEASANT. NO ACUTE CONCERNS AT THIS TIME MINUS HER EMOTIONAL STATE.
[2019-08-10 04:57] LABS: Hematocrit 28.9 % (33.0-51.0); Hemoglobin 9.2 g/dL (11.5-16.0)
[2019-08-10 05:13] LABS: Albumin, Blood 2.7 g/dL (3.4-5.0); Anion Gap 5 mmol/L (6-16); Blood Urea Nitrogen 40 mg/dL (8-24); Bun/Creatinine Ratio 18.3 (12.0-20.0); CO2, Blood 27 mmol/L (21-32); Calcium, Blood 8.7 mg/dL (8.5-10.1); Chloride, Blood 107 mmol/L (98-108); Creatinine, Blood 2.19 mg/dL (0.40-1.00); Glomerular Filtration Rate 24 (60-); Glucose, Blood 124 mg/dL (70-99); Phosphorus, Blood 3.9 mg/dL (2.5-4.9); Potassium, Blood 3.8 mmol/L (3.5-5.5); Sodium, Blood 139 mmol/L (136-145)
--- NOTE | 2019-08-10 06:43 | NUR ---
ACCOUNTS PAYABLE CLERK SUMMARY PT A/OX4. DENIES PAIN, DIZZIESS, NAUSEA AND OTHER DISCOMFORTS. NO ACUTE CHANGES. CALLS APPROPRIATELY. VSS. AWAITING PLACEMENT.
--- NOTE | 2019-08-11 01:49 | NUR ---
PT COMPLAINED OF PHANTOM LEG PAIN 6/10 THROBBING. I MEDICATED HER WITH TRAMADOL 50 MG. PT RE-ASSESSED AND THE PAIN HAS NOT GONE AWAY. HOSPITALIST DR. GRISSOM CALLED AND NEW ORDER OF FENTANYL IV 25-50MCG Q4PRN PUT IN. 25MCG FENTANYL IV GIVEN. WILL RE-ASSESS.
--- NOTE | 2019-08-11 04:28 | NUR ---
OIL BOILER SUMMARY PT A/O X4. SLEPT WELL AFTER FENTANYL IV WAS GIVEN FOR PHANTOM LEG PAIN. VSS. NO ACUTE CHANGES. AWAITING PLACEMENT.
[2019-08-11 05:20] LABS: Hematocrit 30.6 % (33.0-51.0); Hemoglobin 9.5 g/dL (11.5-16.0)
[2019-08-11 05:55] LABS: Albumin, Blood 2.6 g/dL (3.4-5.0); Anion Gap 5 mmol/L (6-16); Blood Urea Nitrogen 33 mg/dL (8-24); Bun/Creatinine Ratio 17.5 (12.0-20.0); CO2, Blood 27 mmol/L (21-32); Calcium, Blood 8.5 mg/dL (8.5-10.1); Chloride, Blood 112 mmol/L (98-108); Creatinine, Blood 1.89 mg/dL (0.40-1.00); Glomerular Filtration Rate 29 (60-); Glucose, Blood 87 mg/dL (70-99); Potassium, Blood 4.1 mmol/L (3.5-5.5); Sodium, Blood 144 mmol/L (136-145)
--- NOTE | 2019-08-11 07:17 | NUR ---
GIVEN O.J. AND CHEESE AND CRACKERS AND AG SERVICE MANAGER TO RECHECK BLD SUGAR IN 1/2 HOUR. PATIENT ALERT AND ORIENTED.
--- NOTE | 2019-08-11 18:27 | NUR ---
ALERT. ORIENTED. MEDICATED X 2 FOR PHANTOM PAIN W/GOOD RESULTS. UNLABORED RESPIRATIONS. AWAITING PLACEMENT. NO ACUTE CHANGES. WCTM
--- NOTE | 2019-08-12 04:13 | NUR ---
SHIFT SUMMARY ADMITTED FOR WOUND CARE. DNR CODE. BILATERAL BKA'S. FROM [facility]. MAY NEED PLACEMENT SO THAT WOUND CARE CAN BE PERFORMED. NO ANTIBIOTICS IN EMAR AT THIS TIME. WHEELCHAIR AT BASELINE, ACHS, RA, ADA/CARDIAC DIET. HAVE MEDICATED TWICE FOR PAIN THIS SHIFT, SEE EMAR. HX: DM2, PAD, NEUROPATHY, ANXIETY, DEPRESSION, CAD W/3 VESSEL BYPASS, ANEMIA, GERD, HYPOTHYROID, CKD3. CONTACT PRECAUTIONS FOR MRSA IN WOUND AND ESBL IN URINE.
[2019-08-12 05:01] LABS: BASOPHILS ABSOLUTE AUTO 0.03 K/mm3 (0.00-0.23); BASOPHILS PERCENT AUTO 0 % (0-2); EOSINOPHILS ABSOLUTE AUTO 0.32 K/mm3 (0.00-0.68); EOSINOPHILS PERCENT AUTO 5 % (0-6); Hemoglobin 9.4 g/dL (11.5-16.0); IMMATURE GRAN ABSOLUTE AUTO 0.02 K/mm3 (0.00-0.10); IMMATURE GRAN PERCENT AUTO 0 % (0-1); LYMPHOCYTES ABSOLUTE AUTO 2.23 K/mm3 (0.84-5.20); LYMPHOCYTES PERCENT AUTO 33 % (21-46); MONOCYTES ABSOLUTE AUTO 0.45 K/mm3 (0.16-1.47); MONOCYTES PERCENT AUTO 7 % (4-13); Mean Corpuscular HGB 30.5 pg (26.0-34.0); Mean Corpuscular HGB Conc 31.3 g/dL (31.5-36.5); Mean Corpuscular Volume 97 fL (80-100); Mean Platelet Volume 9.7 fL (9.1-12.4); NEUTROPHILS ABSOLUTE AUTO 3.76 K/mm3 (1.96-9.15); NEUTROPHILS PERCENT AUTO 55 % (41-73); Platelet Count 294 K/mm3 (150-400); RDW Coefficient Variation 14.8 % (11.7-14.2); RDW Standard Deviation 52.9 fL (35.1-46.3); Red Blood Cell Count 3.08 M/mm3 (3.80-5.20); White Blood Cell Count 6.81 K/mm3 (4.00-11.30)
[2019-08-12 05:23] LABS: Bun/Creatinine Ratio 17.7 (12.0-20.0); Calcium, Blood 8.8 mg/dL (8.5-10.1); Creatinine, Blood 1.75 mg/dL (0.40-1.00); Potassium, Blood 4.3 mmol/L (3.5-5.5)
--- NOTE | 2019-08-12 18:12 | NUR ---
ALERT. ORIENTED. MEDICATED FOR PAIN LEFT STUMP WITH GOOD RESULTS. AWARE IV PAIN MEDS FREQUENCY HAS CHANGED. COOPERATIVE. PLEASANT. WAITING FOR PLACEMENT. SCAB TO LEFT STUMP LOOKS GOOD. PATIENT DOES HER OWN DRESSING CHANGE WITH RN IN ATTENDANCE. CALL LIGHT WITHIN REACH. [facility]
--- NOTE | 2019-08-13 04:34 | NUR ---
SHIFT SUMMARY ADMITTED FOR WOUND CARE. DNR CODE. LEFT BKA 2017, RT BKA 2019. PLAN: DAILY WOUND CARE, DECREASE IV PAIN MED USE, INCREASE PO PAIN MED USE, ARRANGING PLACEMENT IS COMPLICATED DUE TO PET DOG. ADA/CARDIAC DIET, RA, ACHS, LOW SS, WHEELCHAIR @ BASELINE. OCCASIONAL MARIJUANA USE, DAILY SMOKER. HX: DM2, NEUROPATHY, PAD, DEPRESSION, ANXIETY, CAD - 3 VESSEL BYPASS, HYPOTHYROID, ANEMIA, GERD.
--- NOTE | 2019-08-13 11:10 | NUR ---
RN IN ATTENDENCE WHILE STUDENT DOES EVAL ON PATIENT. AGRRE WITH EVAL.
--- NOTE | 2019-08-13 17:38 | NUR ---
ALERT. ORIENTED. SPENT MOST OF TIME OUTSIDE OF ROOM BY WINDOW READING. HAS NOT C/O PAIN. POSSIBLE INTERVIEW FOR PLACEMENT TOMORROW. PLEASANT. COOPERATIVE. MOVES SELF TO W/C WITHOUT DIFFICULTY. WCTM
--- NOTE | 2019-08-14 04:28 | NUR ---
SHIFT SUMMARY ADMITTED FOR WOUND CARE. DNR CODE. AWAITING PLACEMENT:PROBLEMATIC DUE TO PET DOG, HOPEFUL FOR INTERVIEW VISIT W/POSSIBLE FACILITY TODAY. ADA/CARDIAC DIET, RA, ACHS, LOW SS. OCCASSIONAL MARIJUANA USE, DAILY SMOKER. MEPILEX ON COCCYX. WHEELCHAIR AT BASELINE. RT BKA IN 2019, LFT BKA IN 2017. RT STUMP HEALED BETTER THAN LEFT STUMP. PT DENIED PAIN THROUGHOUT THIS SHIFT. A&O X4, ABLE TO MAKE HER NEEDS KNOWN. COOPERATIVE WITH CARE. HX: DM2, NEUROPATHY, PAD, DEPRESSION, ANXIETY, CAD W/3 VESSEL BYPASS, HYPOTHYROID, ANEMIA, GERD, CKD3.
--- NOTE | 2019-08-14 16:59 | NUR ---
PT IS AO TODAY AND COOPERATIVE OF CARE. PT DOING WELL. PT HAS BEEN PLEASANT AND DID WELL VISITING WITH CARLEE. PT TREATED FOR STUMP PAIN PER EMAR TODAY X1. WILL CONTINUE TO MONITOR.
--- NOTE | 2019-08-15 05:51 | NUR ---
SHIFT SUMMARY A/O, ABLE TO MAKE NEEDS KNOWN. COOPERATIVE WITH CARE. CALLS AND ANSWERS QUESTIONS APPROPRIATELY. C/O PAIN/DISCOMFORT TO BILATERAL STUMPS AND ABDOMEN IN RUQ; MEDICATED PER EMAR. VSS/AFEBRILE. APPEARED TO REST MUCH OF SHIFT. INCONTINENT AT TIMES; ATTENDS IN PLACE. NO ACUTE CHANGES NOTED. BED IN LOWEST POSITION. CALL LIGHT AND BELONGINGS WITHIN REACH. WCTM. REPORT TO ONCOMING RN.
[2019-08-15 18:20] LABS: Source, Urine Catheter
[2019-08-15 18:24] LABS: Bilirubin, Urine Neg (Neg); Blood, Urine 4+ (Neg); Glucose Qualitative, Urine Neg (Neg); Ketones, Urine Neg (Neg); Leukocyte Esterase, Urine 3+ (Neg); Nitrite, Urine Neg (Neg); Protein, Urine 3+ (Neg); Urobilinogen, Urine NORM (Normal); pH, Urine 6.5 (5.0-8.0)
--- NOTE | 2019-08-15 18:38 | NUR ---
pt was in destress, has been verbal all day and yesterday, suddenly seemed to have cognitive change, not responding very well. I brought her a diet seraudela mist, MELANIE's idea. I had to help with a straight cath, elliott the charge MELANIE did the procedure. doctor came to see the pt. vitals changed a lot in the one hour. temp was 101.5 and i notifed the nurse. cbg checked by software developer intern. I checked with MELANIE if she could eat. I asked elliott if the pt should eat dinner tonanaly, elliott said probably not, assigned melanie to 356 may not have been notifed or asked, but mely was in room the entire situation and MELANIE's never said first that she couldn't eat that was my train of thought.
[2019-08-15 18:43] LABS: Appearance, Urine Cloudy (Clear); Color, Urine Pale Yellow (P-Yellow)
[2019-08-15 18:44] LABS: Bacteria Many /hpf; Squamous Epithelial Cells Few /hpf (Few); White Blood Cells, Urine TNTC /hpf (0-5)
[2019-08-15 18:57] LABS: BASOPHILS ABSOLUTE AUTO 0.02 K/mm3 (0.00-0.23); BASOPHILS PERCENT AUTO 0 % (0-2); EOSINOPHILS PERCENT AUTO 2 % (0-6); Hematocrit 28.7 % (33.0-51.0); Hemoglobin 9.4 g/dL (11.5-16.0); IMMATURE GRAN ABSOLUTE AUTO 0.06 K/mm3 (0.00-0.10); IMMATURE GRAN PERCENT AUTO 0 % (0-1); LYMPHOCYTES ABSOLUTE AUTO 0.57 K/mm3 (0.84-5.20); LYMPHOCYTES PERCENT AUTO 4 % (21-46); MONOCYTES ABSOLUTE AUTO 0.56 K/mm3 (0.16-1.47); MONOCYTES PERCENT AUTO 4 % (4-13); Mean Corpuscular HGB 31.4 pg (26.0-34.0); Mean Corpuscular HGB Conc 32.8 g/dL (31.5-36.5); Mean Corpuscular Volume 96 fL (80-100); Mean Platelet Volume 9.6 fL (9.1-12.4); NEUTROPHILS ABSOLUTE AUTO 12.32 K/mm3 (1.96-9.15); NEUTROPHILS PERCENT AUTO 90 % (41-73); Platelet Count 266 K/mm3 (150-400); RDW Coefficient Variation 15.1 % (11.7-14.2); RDW Standard Deviation 52.5 fL (35.1-46.3); Red Blood Cell Count 2.99 M/mm3 (3.80-5.20); White Blood Cell Count 13.73 K/mm3 (4.00-11.30)
--- NOTE | 2019-08-15 19:34 | NUR ---
SHIFT SUMMARY PAT WAS ALERT AND ORIENTED AT THE START OF THE SHIFT, PLEASANT, GETS ANXIOUS AT TIMES. VSS, BUT IN THE AFTERNOON PT GOT CHILLS, BECAME MUCH LESS RESPONSIVE (EYES CLOSED, WOULD ONLY OPEN FOR A BRIEF SECOND, UNABLE TO STAY AWAKE), TEMP 101.5, TACHY AT 108. DR SANDERS CALLED TO BEDSIDE. STAT LABS, BLOOD CULTURES, UA, ONE LITER NS WO ORDERED. PT BECAME MUCH MORE RESPONSIVE WITHIN AN HOUR, ABLE TO EAT HER DINNER, STATES SHE FEELS BETTER. STUMPS MANDI, NO DRAINAGE, SITES HEALING WELL. COCCYX HAS TINY ABRASION, CALAZIEM APPLIED AND PT ENCOURAGED TO MOVE FREQUENTLY. PT DECLINED TO GET UP TO WC THIS AFTERNOON. INCONTINENT URINE THIS SHIFT. GOT PO PAIN MEDS A COUPLE TIMES THIS SHIFT FOR HER PHANTOM LEG PAIN AND R RIB PAIN. TOOK MEDS PRESCRIBED, CALL LIGHT IN REACH
[2019-08-16 05:11] LABS: BASOPHILS ABSOLUTE AUTO 0.02 K/mm3 (0.00-0.23); BASOPHILS PERCENT AUTO 0 % (0-2); EOSINOPHILS ABSOLUTE AUTO 0.12 K/mm3 (0.00-0.68); EOSINOPHILS PERCENT AUTO 1 % (0-6); Hematocrit 29.6 % (33.0-51.0); Hemoglobin 9.2 g/dL (11.5-16.0); IMMATURE GRAN ABSOLUTE AUTO 0.05 K/mm3 (0.00-0.10); IMMATURE GRAN PERCENT AUTO 0 % (0-1); LYMPHOCYTES ABSOLUTE AUTO 1.55 K/mm3 (0.84-5.20); LYMPHOCYTES PERCENT AUTO 12 % (21-46); MONOCYTES PERCENT AUTO 7 % (4-13); Mean Corpuscular HGB 30.4 pg (26.0-34.0); Mean Corpuscular HGB Conc 31.1 g/dL (31.5-36.5); Mean Corpuscular Volume 98 fL (80-100); Mean Platelet Volume 9.8 fL (9.1-12.4); NEUTROPHILS ABSOLUTE AUTO 10.72 K/mm3 (1.96-9.15); NEUTROPHILS PERCENT AUTO 80 % (41-73); Platelet Count 264 K/mm3 (150-400); RDW Coefficient Variation 15.3 % (11.7-14.2); RDW Standard Deviation 54.6 fL (35.1-46.3); Red Blood Cell Count 3.03 M/mm3 (3.80-5.20); White Blood Cell Count 13.36 K/mm3 (4.00-11.30)
[2019-08-16 05:59] LABS: Calcium, Blood 8.1 mg/dL (8.5-10.1); Creatinine, Blood 2.57 mg/dL (0.40-1.00); Potassium, Blood 3.8 mmol/L (3.5-5.5)
--- NOTE | 2019-08-16 06:40 | NUR ---
SHIFT SUMMARY PT IS A 59 Y/O FEMALE, ADMITTED FOR WOUND CARE. SHE IS WHEELCHAIR BOUND AT BASELINE WITH BILATERAL BKA. PT IS A&O X 3, CURRENTLY AWAITING PLACEMENT IN A FACILITY. PER DAY SHIFT REPORT, PT HAD AN EPISODE OF BEING UNRESPONSIVE. AT THE START OF SHIFT, LAB REPORTED A CRITICAL LACTIC OF 2.2. THE PT'S BP WAS ALSO LOW AFTER COMPLETING A 1 L BOLUS OF NS AT 92/36. AFTER CONSULTING THE HOSPITALIST LYNDSAY PRAKASH, THE PT WAS GIVEN AN ADDITIONAL 1L BOLUS OF NS, PLUS 1 BAG OF NS @ 150 ML/HR, AND INCREASED THE FREQUENCY OF VITAL CHECKS. PT'S BP IMPROVED BY THE END OF SHIFT TO 119/43. ALL OTHER VITALS STABLE. PT DID REPORT MUSCLE CRAMPING AND TWITCHING IN HER LEGS AT THE BEGINNING OF SHIFT, BUT WAS NOT ABLE TO BE MEDICATED DUE TO TIME INTERVAL OF MED ORDER. NO COMPLAINTS OF NAUSEA OR SOB. NO OTHER ACUTE CHANGES IN PT CONDITION NOTED. WILL CONTINUE TO MONITOR AND TREAT PER EMAR UNTIL HAND OFF TO DAY SHIFT RN.
--- NOTE | 2019-08-16 18:33 | NUR ---
PATIENT A/OX4 AND CALM AND COOPERATIVE WITH CARE THIS SHIFT. VSS, ON RA. BLOOD CX CAME BACK POSITIVE FOR GRAM- BACILLI, PATIENT CURRENTLY ON MERREM. REPEAT BLOOD CX DRAWN TODAY. 20G IV TO L FA WNL AND SL. CONTINUES TO AWAIT PLACEMENT.
[2019-08-17 04:57] LABS: Bun/Creatinine Ratio 15.3 (12.0-20.0); Calcium, Blood 8.3 mg/dL (8.5-10.1); Creatinine, Blood 2.49 mg/dL (0.40-1.00); Potassium, Blood 4.1 mmol/L (3.5-5.5)
--- NOTE | 2019-08-17 05:59 | NUR ---
SHIFT SUMMARY PT IS A 59 Y/O FEMALE, ORIGINALLY ADMITTED FOR WOUND CARE AND CURRENTLY AWAITING PLACEMENT. SHE IS A&O X 4, BILATERAL BKA AND WHEELCHAIR BOUND AT BASELINE. PT DENIED ANY COMPLAINTS OF ACUTE PAIN, NAUSEA OR SOB AND SLEPT WELL DURING THE NIGHT. PT IS INCONTINENT, BUT IS ABLE TO MOVE HERSELF IN BED. VITAL SIGNS STABLE. NO ACUTE CHANGES IN PT CONDITION NOTED. WILL CONTINUE TO MONITOR AND TREAT PER EMAR UNTIL HAND OFF TO DAY SHIFT RN.
--- NOTE | 2019-08-17 18:44 | NUR ---
NO ACUTE CHANGES THIS SHIFT. PATIENT CONTINUES TO AWAIT PLACEMENT.
--- NOTE | 2019-08-18 04:57 | NUR ---
SHIFT SUMMARY- NO ACUTE EVENTS OVERNIGHT. PT. SLEPT COMFORTABLY DURING THE SHIFT. NO APPARENT DISTRESS NOTED. PT. DENIED ANY PAIN OR DISCOMFORT LAST NIGHT. AWAITING PLACEMENT. CALL LIGHT WITHIN REACH AND SIDE RAILS UP X2. WILL CONT TO MONITOR.
--- NOTE | 2019-08-18 15:02 | NUR ---
OBTAINED PATIENT PERMISSION THE METER TESTER OBTAINED PATIENT'S PERMISSION TO CARE FOR HER ON 2019.
--- NOTE | 2019-08-18 18:43 | NUR ---
SHIFT SUMMARY PT IS ALERT AND ORIENTED, VITALS REMAINED STABLE. THIS AFTERNOON PT HAD SEVERE PAIN IN JAH LEGS THAT WASN'T CONTROLLED WITH PRN MEDS. CALLED MD AND RECEIVED A ONETIME ADDITIONAL DOSE OF NORCO AND PT HAD AN IMPROVED RESPONSE AFTER PAIN MEDICATION. PT HAS DECLINED ANY OTHER NEEDS OR CONCERNS TODAY.
--- NOTE | 2019-08-19 00:45 | NUR ---
08/19/19 0030 RN ASKED PT IF SHE NEEDED PAIN MED AND SHE SAID,"NO." PT WATCHING TV.
--- NOTE | 2019-08-19 04:10 | NUR ---
08/19/19 0410 RN MAKING ROUNDS AND PT IS LISTENING TO MUSIC ON THE RADIO. DENIES ANY DISCOMFORT OR OTHER S/S. VITALS REMAIN STABLE. TAKING ORAL INTAKE WELL. INCONTINENT BRIEFS CHANGED SEVERAL TIMES THROUGHOUT THE NIGHT WHEN NEEDED. SELF TURNS.
[2019-08-19 05:44] LABS: Bun/Creatinine Ratio 17.2 (12.0-20.0); Calcium, Blood 8.7 mg/dL (8.5-10.1); Creatinine, Blood 2.04 mg/dL (0.40-1.00); Potassium, Blood 4.5 mmol/L (3.5-5.5)
--- NOTE | 2019-08-19 16:30 | NUR ---
SHIFT SUMMARY PATIENT HAS HAD NO ACUTE EVENTS TODAY. IN AND OUT OF ROOM IN W/C. WATCHING TV, READING BOOKS, IN GOOD SPIRITS. IV ANTIBIOTICS PER SCHEDULE.
--- NOTE | 2019-08-20 05:02 | NUR ---
08/20/19 0500 LEAD CARGO MOVER AND RN CHANGED WET BRIEF AND VITALS TAKEN. PT CHEERFUL AND WATCHING TV. DENIES ANY PAIN OR S/S AT THIS TIME. VITALS STABLE.
--- NOTE | 2019-08-20 17:50 | NUR ---
SHIFT SUMMARY PATIENT HAS HAD NO ACUTE CHANGES. UP IN CHAIR AND UP IN BED. CHANGED PRN. ABLE TO MAKE HER NEEDS KNOWN. IV ANTIBIOTICS GIVEN. NO ACUTE ISSUES NOTED.
--- NOTE | 2019-08-21 05:08 | NUR ---
SHIFT SUMMARY PT ALERT AND ORIENTED. NO COMPLAINTS OF PAIN. DID STATE THAT SHE INTERMITTENTLY GETS "REALLY BAD" PHANTOM PAIN BUT DENIED ANY THIS EVENING. PT HAS BILATERAL BKA'S. REMAINED IN BED THIS EVENING. PT TURNS SELF WHILE IN BED. VOIDED IN BRIEF. PT REPORTS THAT SHE IS NOT INCONTINENT BUT SHE CANNOT USE OUR BSC BECAUSE THEY DON'T HAVE HANDLES THAT LOWER SO SHE CAN SLIDE ON TO BSC. AND PT DECLINED TO USE BED LING. NO WOUNDS NOTED TO BILATERAL STUMPS, ONLY A SMALL SCAB ON R STUMP. PT APPEARED IN GOOD SPIRITS THIS EVENING. ON RA. VSS. NO ACUTE CHANGES. WILL CONTINUE TO MONITOR.
[2019-08-21 05:16] LABS: Bun/Creatinine Ratio 19.9 (12.0-20.0); Calcium, Blood 8.9 mg/dL (8.5-10.1); Creatinine, Blood 1.81 mg/dL (0.40-1.00); Potassium, Blood 4.2 mmol/L (3.5-5.5)
--- NOTE | 2019-08-21 18:26 | NUR ---
SHIFT SUMMARY- PT IS A/O, PLESANT AND COOPERATIVE. PT IS RECIEVING IV ANTIBIOTICS. SHE IS EATING AND DRINKING WELL. SHE IS AWAITING COMPLEATION OF MEDICATIONS AND PENDING PLACMENT.
--- NOTE | 2019-08-22 05:27 | NUR ---
SHIFT SUMMARY PT HAD AN UNEVENTFUL NIGHT. SHE HAS SLEPT OFF AND ON THIS SHIFT. SHE HAS DENIED NEEDS. SNACKS GIVEN HS AFTER RECEIVING HER BEDTIME DOSE OF LANTUS. SHE HAS NOT HAD ANY COMPLAINTS T/O SHIFT. ASSESSMENT HAS REMAINED UNCHANGED. IV ABX CONTINUED ORDERED. NO ACUTE CHANGES. BED IN LOWEST POSITION. CALL LIGHT WITHIN REACH. WILL CONTINUE TO MONITOR AND REPORT TO ONCOMING RN.
--- NOTE | 2019-08-22 17:14 | NUR ---
SHIFT SUMMARY- PT IS A/O, PLESANT AND COOPERATIVE. SHE IS PENDING PLACMENT FOR REMAINDER OF IV ANTIBIOTIC THERAPY.
--- NOTE | 2019-08-23 02:34 | NUR ---
PT PLEASANT AND COOPERATIVE WITH CARE. SLEEPING AT THIS TIME. NO ACUTE CONCERNS.
--- NOTE | 2019-08-23 04:27 | NUR ---
NOC SHIFT SUMMARY PT HAS BEEN PLEASANT AND COOPERATIVE WITH CARE THIS SHIFT. HAS LARGELY SLEPT THROUGH THE NIGHT. VSS. NO ACUTE CHANGES NOTED THIS SHIFT. PRESENTLY APPEARS TO BE SLEEPING. RESP EVEN AND UNLABORED. WILL CONTINUE TO MONITOR. AND REPORT TO ONCOMING RN.
--- NOTE | 2019-08-23 15:37 | NUR ---
SHIFT SUMMARY NO ACUTE CHANGES TO PRESENT THIS SHIFT. PT STILL WAITING FOR PLACEMENT WHEN IV ABX COMPLETE. PT UP TO W/C FOR THE DAY, AND TAKING SELF OUT OF RM SEVERAL TIMES. CONTINUES TO DENY NEEDS. PLEASANT AND CO-OP. ABLE TO MAKE NEEDS KNOWN.
--- NOTE | 2019-08-24 04:04 | NUR ---
NOC SHIFT SUMMARY PT COMPLAINED OF BRAD BLE LIMB PAIN EARLY THIS NIGHT TREATED WITH TYLENOL. THIS DID NOT HELP AND SO GAVE NORCO PER EMAR. PT FELL TO SLEEP SHORTLY AFTER THIS. SHE HAS SLEPT ON AND OFF THIS NIGHT. AWAKENS EASILY TO VOICE. PRESENTLY WATCHING TV. CONTINUING IV ABX. NO ACUTE CONCERNS OR CHANGES NOTED THIS SHIFT. WILL CONTINUE TO MONITOR.
--- NOTE | 2019-08-24 19:55 | NUR ---
END OF SHIFT SUMMARY: PATIENT DENIED PAIN THAT NEEDED TO BE ADDRESSED THROUGHOUT THE SHIFT. PATIENT DENIED NAUSEA OR OTHER DISCOMFORT. PATIENT HAD A CBG OF 67 THIS MORNING. AFTER RECEIVING JUICE, CBG INCREASED TO 82. PATIENT ASYMPTOMATIC THROUGHOUT. PATIENT REPORTED EXCITEMENT AND PENDING DISCHARGE, PLACEMENT AT [facility] AND REUNITING WITH HER DOG. PATIENT CALM AND COOPERATIVE THROUGHOUT THE DAY.
--- NOTE | 2019-08-24 23:22 | NUR ---
PRESENLTY SLEEPING, VSS. NO COPLAINTS OF PAIN OR DISCOMFORT.
--- NOTE | 2019-08-25 06:40 | NUR ---
NOC SHIFT SUMMARY PT PLEASANT AND COOPERATIVE WITH CARE. NO COMPLAINTS OF PAIN OR DISCOMFORT. SPENT THE EVENING READING AND WATCHING TV, THEN WENT TO SLEEP. VSS. NO ACUTE CHANGES NOTED THIS SHIFT. AWAKENS EASILY TO VOICE. WILL CONTINUE TO MONITOR.
--- NOTE | 2019-08-25 18:21 | NUR ---
SHIFT SUMMARY- PT IS A/O, PLESANT AND COOPERATIVE. PT WORKED WITH OT THIS AFTERNOON AND TOLERATED WELL. PT RECIEVING LAST DOSES OF ANTIBIOTICS AND DISCHARGE TOMORROW.
--- NOTE | 2019-08-25 20:59 | NUR ---
PAT IS WATCHING TV AND READING A BOOK. DENIES ANY PAIN OR DISCOMFORT. STATES EVERY THING IS GOOD. IS LOOKING FORWARD TO HER PLACEMENT. LUNG SOUNDS ARE CLEAR, HR REGULAR. STUMPS ARE HEALED. MEDS ADMINISTERED. VS GOOD. WILL CONTINUE TO MONITOR.
--- NOTE | 2019-08-26 05:35 | NUR ---
SHIFT SUMMARY: PAT HAD A VERY UNEVENTFUL NIGHT. SHE STAYED QUIET IN HER ROOM READING A BOOK AND WATCHING TV. VS HAVE REMAINED WNL. DENIED ANY PAIN OR DISCOMFORT. ANTIBOTIC GIVEN IV THEN IV SL. SHE IS ABLE TO POSITION SELF IN BED. NO ACUTE CHANGES THIS SHIFT. CALL LIGHT WITH IN REACH AND USED APPROPRIATLTY.
--- NOTE | 2019-08-26 17:39 | NUR ---
SUMMARY PT SITTING UP IN BED READING AND WATCHING TV, PT HAS BEEN PLEASANT AND COOPERATIVE WITH CARE, UP IN HER WHEELCHAIR AND UP IN THE HALLS SEVERAL TIMES, DISCHARGE PLANNING IS WORKING WITH THE PT, NO COMPLAINTS, NO ACUTE CHANGES, WILL CONT TO MONITOR
--- NOTE | 2019-08-26 19:40 | NUR ---
ERIN IS SITTING UP IN HER BED, WATCHING TV. IS A LITTLE BUMMED THAT SHE DID NOT GO TO HER NEW PLACE. SHE IS HOPING IT WILL BE TOMORROW. ENCOURAGED HER TO KEEP HER HOPES UP. SHE DENIES ANY NEEDS AT THIS TIME. WILL CONTINUE TO MONITOR.
--- NOTE | 2019-08-27 05:48 | NUR ---
SHIFT SUMMARY: PAT HAD ANOTHER UNEVENTFUL NIGHT OF WATCHING TV AND SLEEPING. VS HAVE REMAINED STABLE. BLOOD SUGAR WITH IN HER NORMAL RANGE. NO PAIN OR DISCOMFORT NOTED. NO ACUTE CHANGES TO REPORT THIS SHIFT. WILL REPORT TO DAY SHIFT.
--- NOTE | 2019-08-27 18:13 | NUR ---
SUMMARY PT SITTING UP IN BED EATING DINNER, PT HAS BEEN PLEASANT AND COOPERATIVE WITH CARE T/O THE DAY, UP IN HER WHEELCHAIR UP IN THE HALLS, PLAN TO DC IN AM, VSS, NO ACUTE CHANGES, WILL CONT TO MONITOR
--- NOTE | 2019-08-27 20:55 | NUR ---
ERIN IS PLEASANTLY QUITE IN HER ROOM WATCHING TV AND READING BOOKS. SHE IS EXCITED ABOUT GOING TO HER HOME TOMORROW. THIS IS WHAT THE MEETING WAS ABOUT TODAY. SHE MOSTLY EXCITED ABOUT SEEING HER DOG AGAIN. DENIES NEED FOR ATTENDS CHANGE, PAIN OR ANY OTHER CONCERNS AT THIS TIME. CALL LIGHT IN REACH. WILL CONTINUE TO MONITOR.
--- NOTE | 2019-08-28 05:17 | NUR ---
SHIFT SUMMARY: PAT HAD NO ACUTE CHANGES THIS SHIFT. SLEPT THROUGHOUT THE NIGHT. VITALS HAVE REMAINED STABLE. BLOOD SUGAR IN THE 100'S. NO NEEDS WERE IDENTIFIED. WILL REPORT TO DAY SHIFT.
[2019-08-28] MEDS ORDERED: VENL75ER PO (10:08)
[2019-08-28] MEDS ORDERED: BASAGLAR K100 UNIT/1 SC (10:10)
[2019-08-28] MEDS ORDERED: GAVILAX17 GM PO (10:14)
[2019-08-28] MEDS ORDERED: Norco 5-325 Ta1 EACH PO (10:14)
--- NOTE | 2019-08-28 15:41 | NUR ---
threraputic visit with patient. Care managers brought her dog.
--- NOTE | 2019-08-28 17:15 | NUR ---
DISCHARGE NOTE- PT DISCHARGED TO [facility] IN [place]. IV DC'D PRIOR TO DISCHARGE. PT HAD NO S&S OF DISTRESS AT THE TIME OF DICAHRGE. PT TAKEN BY [facility] SELF PROPELLED THE WC TO THE PT ENTRANCE. PT EXCITED TO GO. PT LEFT A LARGE BAG OF BOOKS IN HER ROOM STATING SHE HAS ALREADY READ THEM AND DOES NOT WANT THEM.
== END 2019-08-28 17:12 | disposition home or self-care (01) | DRG 871 ==
LOC: ER 14:41 → MEDS 14:42 → ER 16:32 → MEDS 16:32 → ENPENDDIS 08-28 10:00 → MEDS 08-28 17:12
PROVIDERS: Emergency Medicine; Internal Medicine; Pharmacist; ADMIT Internal Medicine
DX: A41.51 Sepsis due to Escherichia coli [E. coli] (principal); G93.41 Metabolic encephalopathy; T87.44 Infection of amputation stump, left lower extremity; N17.9 Acute kidney failure, unspecified; N39.0 Urinary tract infection, site not specified; T87.43 Infection of amputation stump, right lower extremity; E11.51 Type 2 diabetes mellitus with diabetic peripheral angiopathy without gangrene; I25.10 Atherosclerotic heart disease of native coronary artery without angina pectoris; E78.5 Hyperlipidemia, unspecified; Z90.49 Acquired absence of other specified parts of digestive tract; F17.210 Nicotine dependence, cigarettes, uncomplicated; Z95.1 Presence of aortocoronary bypass graft; E11.42 Type 2 diabetes mellitus with diabetic polyneuropathy; Z79.4 Long term (current) use of insulin; E03.9 Hypothyroidism, unspecified; E11.22 Type 2 diabetes mellitus with diabetic chronic kidney disease; I12.9 Hypertensive chronic kidney disease with stage 1 through stage 4 chronic kidney disease, or unspecified chronic kidney disease; F41.8 Other specified anxiety disorders; K21.9 Gastro-esophageal reflux disease without esophagitis; N18.3 Chronic kidney disease, stage 3 (moderate); G54.6 Phantom limb syndrome with pain
CPT/HCPCS: 36415; 36430; 80048; 80053; 80069; 80202; 81001; 82607; 82728; 82746; 82947; 83036; 83540; 83550; 83605; 83880; 85014; 85018; 85025; 85027; 86850; 86900; 86901; 86902; 86922; 87040; 87070; 87075; 87077; 87086; 87186; 87205; 94640; 94760; 96365; 96372; 96375; 96376; 97110; 97161; 97165; 97530; 97535; 99284-25; A9270; A9270-GY; G0378; J1650; J2185; J3010; J3370; J3420; J7030; J7050; P9016; Q0163